=== PATIENT | female | born 1985 | race Caucasian/White ===

== ENCOUNTER → 2019-08-27 08:49 | Outpatient (CLI) | payer OTHER, SELFPAY ==
[2019-08-27 10:24] LABS: Prolactin 16.6 ng/mL; T4 Free Direct 0.96 ng/dL (0.76-1.46); Thyroid Stim Hormone (TSH) 1.91 uIU/mL (0.358-3.74)
[2019-08-27 10:30] LABS: Insulin 5.6 mU/L (2.6-37.6); Progesterone Level 0.16 ng/mL (See Comment)
[2019-08-29 23:22] LABS: 17-Hydroxyprogesterone 31 ng/dL (.)
[2019-08-30 17:41] LABS: Testosterone, % Free 2.25 % (0.50-2.80); Testosterone, Free 0.27 ng/dL (0.10-0.85); Testosterone, Total 12 ng/dL (8-48)
[2019-08-31 14:36] LABS: Anti-Mullerian Hormone,Serum 2.49 ng/mL (.); DHEA Sulfate 223.9 ug/dL (84.8-378.0)
== END ==
PROVIDERS: Referring Provider Advanced Practice Midwife; Visit Provider Advanced Practice Midwife
DX: Z01.411 Encounter for gynecological examination (general) (routine) with abnormal findings (principal); N97.9 Female infertility, unspecified
CPT/HCPCS: 36415; 82627; 83498; 83516; 83525; 84144; 84146; 84402; 84403; 84439; 84443; 82626

== ENCOUNTER → 2019-08-28 13:14 | Outpatient (CLI) | payer OTHER, SELFPAY ==
--- NOTE | 2019-08-28 13:45 | MRI_ITS ---
STUDY: MR PELVIS WITH T WITHOUT CONTRAST REASON FOR EXAM: Female, 33 years old. Pelvic swelling mass lump TECHNIQUE: Standardized fat and water weighted pulse sequences were obtained in all 3 orthogonal planes, pre-and post contrast administration. 15 CC DOTAREM IV was administered for the contrast portion of the examination. COMPARISON: None. FINDINGS: Multiple sequences are degraded by patient motion. Trace free fluid in the cul-de-sac. Normal ovaries. 2.2 cm dominant right ovarian follicle, within normal limits. Uterus is normal in size. 1.3 cm intramural fibroid in the uterine body posteriorly. The uterus is otherwise unremarkable. Urinary bladder is well-distended and is unremarkable. No pelvic mass or adenopathy. Marrow signal is normal. No soft tissue mass or cystic lesion. No enhancing lesion following the administration of contrast. MRI/Pelvis W/WO Contrast IMPRESSION: 1. Trace free fluid, likely physiologic. 2. Small uterine fibroid. Electronically Signed: Dona Payan MD at 23:36 EST Tel , Service support ,
== END ==
PROVIDERS: Referring Provider Advanced Practice Midwife; Visit Provider Advanced Practice Midwife
DX: D25.1 Intramural leiomyoma of uterus (principal); R19.09 Other intra-abdominal and pelvic swelling, mass and lump
CPT/HCPCS: 72197; A9575

== ENCOUNTER → 2023-04-12 | Outpatient (CLI) | payer OTHER, SELFPAY ==
--- NOTE | 2023-04-12 09:30 | RAD_ITS ---
INDICATION: BACK PAIN EXAMINATION/TECHNIQUE: X-RAY - XR Sacrum/Coccyx Min 2 Views COMPARISON: MRI pelvis August 28, 2019. FINDINGS: SACRUM/COCCYX: No fracture, destructive or sclerotic lesions. SACRO-ILIAC JOINTS: The articular structures are unremarkable. SOFT TISSUES: No soft tissue swelling or gas. There is asymmetric enlargement/widening of the left transverse process of L5 compared to the right; partial sacralization of L5. No articulation with the left sacral base. Moderate degenerative endplate changes at L4-5. RAD/Sacrum-Coccyx min 2 Views IMPRESSION: Intact sacrum and coccyx. Partial sacralization of L5 on the left. L4-5 degenerative endplate changes. Electronically Signed: Luis Carlos Kasper DO at 0:08 EDT ,
[2023-04-12 10:26] LABS: Absolute Lymphocyte Count 1.91 X10^3/uL (0.83-4.51); Basophil# 0.02 X10^3/uL; Basophil% 0.3 % (0-1); Eosinophil# 0.08 X10^3/uL; Eosinophils% 1.2 % (0-5); Hematocrit 39.5 % (37-47); Hemoglobin 12.9 g/dL (12.0-15.0); Lymphocyte # 1.91 X10^3/ul (0.83-4.51); Lymphocyte % 29.4 % (19-41); Mean Corp Hgb Conc 32.7 g/dL (32-36); Mean Corpuscular Hgb 29.7 pg (27.0-32.0); Mean Platelet Vol. 10.7 fl (6.2-12.0); Monocyte# 0.48 X10^3/uL; Monocyte% 7.4 % (0-10); NRBC Flagged by Analyzer 0 % (0-5); Neutrophil % 61.5 % (47-70); Platelet Count 280 K/mm3 (150-450); RBC Distribution Width CV 13.3 % (11.6-14.6); Red Blood Count 4.34 M/mm3 (4.2-5.4); White Blood Count 6.5 K/mm3 (4.4-11.0)
[2023-04-12 10:48] LABS: ALB/GLOB Ratio 1.1 RATIO (0.9-2.4); AST(SGOT) 14 U/L (15-37); Alanine Aminotransfer ALT/SGPT 25 U/L (13-56); Albumin, Serum 3.8 g/dL (3.2-5.0); Alkaline Phosphatase 52 U/L (45-117); Anion Gap 1 (5-15); BUN 10 mg/dL (7-18); BUN/Creat Ratio 16.3 RATIO (10-20); Calcium,Total 8.5 mg/dL (8.5-10.1); Chloride 111 mmol/L (98-107); Cholesterol 189 mg/dL (200); Creatinine, Serum 0.61 mg/dL (0.55-1.02); EST Glomerular Filtration Rate 117 mL/min (>60); Est Glom Filt Rate - Afr Amer 141 mL/min (>60); Ferritin 16 ng/mL (8-252); Globulin 3.4 g/dL (2.2-4.2); Glucose 107 mg/dL (74-106); High Density Lipoprotein 63 mg/dL; Iron 117 ug/dL (50-170); Iron Binding Capacity,Total 313 ug/dL (250-450); Potassium 3.9 mmol/L (3.5-5.1); Protein, Total 7.2 g/dL (6.4-8.2); Sodium Level 138 mmol/L (136-145); Thyroid Stim Hormone (TSH) 1.31 uIU/mL (0.358-3.74); Triglycerides 61 mg/dL; Very Low Density Lipoprotein 12 mg/dL (5-40)
== END | disposition home or self-care (01) ==
LOC: MTLAB 09:12
PROVIDERS: PCP Family Medicine; Referring Provider Family Medicine; Visit Provider Family Medicine
DX: Z00.00 Encounter for general adult medical examination without abnormal findings (principal); Z13.1 Encounter for screening for diabetes mellitus; K92.1 Melena; M54.50 Low back pain, unspecified; G89.29 Other chronic pain
CPT/HCPCS: 36415; 72220; 80053; 80061; 82728; 83540; 83550; 84443; 85025

== ENCOUNTER 2023-06-12 11:30 | Outpatient (RCR) | payer OTHER, SELFPAY ==
--- NOTE | 2023-05-14 10:59 | HP.PTEVAL ---
Patient's Visit Information Visit Information Visit Information: NENO QUINTERO is a 37 year old F referred to Physical Therapy by JOSE MIGUEL Ny with a diagnosis of Lumbar Spondylolysis. Date of Evaluation: 05/14/23 Physical Therapist: ALFREDITO Cervantes Visit Plan Frequency: 2x /Week Duration: 2 Months Plan: 2X/ week for 8 weeks starting with neutral spine core stability on the mat (add knee fall out and try and progress hip march etc), and then progress to sitting and standing neutral spine core stability using PT. Give HEP. WILL NEED A GYM ROUTINE AT IN BUT NOT [facility] [place]. HEP: PT, BRIDGEING WITH BLUE ISO ABD, SUPINE CLAMS WITH PT, PT WITH HIP MARCH Subjective Subjective: Pt has had back issues her whole life but the last year she has had pain everyday. She does not do pain pills. She had an x-ray that showed spondylolysis and he wants to do an MRI and has to do PT prior to MRI. She will get some pain in the front part of her legs but not in the back of the legs. No N&T. She is sleeping ok and does better with a sleep Number bed and sleeps good. No weakness in the legs. She walks 3 miles everyday. She has not worked out lately. She reports that sitting for a long time hurts or if she is up and moving a lot she has increased pain. Slow walk is ok. Not sure about a power walk. Stair: no pain Pain Back pain: Pain Intensity (Out of 10): 1 Objective Objective: Gait: Normal gait pattern Increase lordosis of L spine... hard for pt to hold a PPT on the mat table Pt has increase pain rolling from side to side but has less pain if she does an ab brace. Trunk AROM: flex 100%, Ext 50%, SB B 75%, Rot B 75% LE MMT: R hip flex 14.1 and L 14.3 R knee ext 21.8 and L 23.2 R knee flex 14.7 and L 16.6 R hip abd 13.9 and L 14.8 R hip ext 10.8 and l 9.1 some pain bridge: full ROM Patella DTR's 0/3 SLUMP test + B for back pain SLR test: + for back pain at end range Nerve root stretch--- negative B Standing heel and toe raises X 10 B (likes to stick butt out with toe raises) Balance/Special Test Scores Oswestry Low Back Score: 7 Goals Goal 1:: I HEP and gym routine with using a PT with all exercises for core stability Goal Time Frame: 6-8 Weeks Goal 2:: Decrease back pain by 50% with ADL's Goal Time Frame: 6-8 Weeks Goal 3:: Be able to hold a PT in supine and standing to help increase core stability while doing exercises Goal Time Frame: 6-8 Weeks Rehabilitation Potential Rehabilitation Potential: Excellent Anticipated Interventions Patient/Client Instruction: Educate patient on: Condition and Plan of Care For the Purpose of:: To decrease pain, To decrease swelling/inflammation, To increase ROM, To improve nutrient delivery to tissue, To improve muscle performance and motor function, To improve ability to perform ADL's, To increase tolerance to activity/condition/position, To improve performance and independence with ADL's, To decrease level of supervision to perform tasks, To improve ability of physical actions for home/community/work/leisure, To improve health of tissue, To decrease soft tissue restriction and To increase flexibility/ROM Therapeutic Exercise to Include: Strength training, Body mechanics, Postural training, Neuromotor development, Active ROM and Dynamic Lumbar Stabilization For the Purpose of:: To decrease pain, To increase ROM, To improve nutrient delivery to tissue, To improve muscle performance and motor function, To improve ability to perform ADL's, To increase tolerance to activity/condition/position, To improve health of tissue, To decrease soft tissue restriction and To increase flexibility/ROM Text: Thank you for the opportunity to evaluate your patient. For Medicare and Medicare HMO plans, please review the plan of care and approve it. It will need to be FAXED BACK to us at [phone] for Medicare purposes. For Medicare only, by signing this I certify the plan of care. Please let me know if there are questions or concerns regarding this plan of care. Physician Signature: Date:
--- NOTE | 2023-06-12 11:46 | HP.PTDCSUM ---
Discharge Summary D/C summary: It has been my pleasure to treat NENO QUINTERO referred by Fariba Ocampo NP-C, with the diagnosis of Lumbar Spondylolysis for a total of 6 visit(s). Discharge Date: 06/12/23 Please see the following information for a summary of their discharge status. Subjective Subjective: Pt feels that there definitly seen an improvement in the 4 weeks. Pt was sick last week. Pt wants to start to do a gym routine on her own. She has a membership here and a membership at [employer] and they can work with her with her back issues. 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 She is working on keeping her core tight overall and her knees a little bit. Pain Back pain: Pain Intensity (Out of 10): 1 Overall Improvement % Improvement: 50 Objective Objective/Function: Pt knows how to do a PT in standing Goals Goal 1:: I HEP and gym routine with using a PT with all exercises for core stability Goal Progress: Goal Met Goal 2:: Decrease back pain by 50% with ADL's Goal Progress: Goal Met Goal 3:: Be able to hold a PT in supine and standing to help increase core stability while doing exercises Goal Progress: Goal Met Plan Plan: DC PT to HEP and will incorporate PT/ab bracing into gym routines D/C Information Discharge Comments: DC PT to HEP d/c sentence: If there are questions or concerns regarding this patient's physical therapy, please feel free to call me at [phone]. Thank you for the referral of this patient. Sincerely, Jeannette Amado, MPT Balance/Gait/Functional tests Balance/Special Test Scores Oswestry Low Back Score: 5 Improvement % Improvement: 50
== END 2023-06-12 12:22 | disposition home or self-care (01) ==
LOC: PT 11:30
PROVIDERS: PCP Family Medicine; Referring Provider Nurse Practitioner; Visit Provider Nurse Practitioner
DX: M43.06 Spondylolysis, lumbar region (principal)
CPT/HCPCS: 97110; 97161; 97530

== ENCOUNTER → 2023-06-12 | Outpatient (CLI) | payer OTHER, SELFPAY ==
[2023-06-17 20:07] LABS: HPV APTIMA, High Risk Negative (Negative)
== END | disposition home or self-care (01) ==
PROVIDERS: PCP Family Medicine; Visit Provider Nurse Practitioner Women's Health
DX: Z12.4 Encounter for screening for malignant neoplasm of cervix (principal)
CPT/HCPCS: 87624; 88175; G0145

== ENCOUNTER → 2023-06-21 | Outpatient (CLI) | payer OTHER, SELFPAY ==
--- NOTE | 2023-06-21 08:14 | BI_ITS ---
MAMMOGRAPHY - BILATERAL SCREENING REASON FOR EXAM: Female, 37 years old. Routine annual screening examination. PERTINENT HISTORY: Grandmother with breast cancer. TECHNIQUE: Digital bilateral breast tony (3D mammographic acquisition) in the CC and MLO projections. 2-D mediolateral oblique (MLO) and craniocaudad (CC) views of both breasts were obtained. CAD: Full Field Digital Mammography with Computer Added Detection was performed. COMPARISON: None. Baseline examination. FINDINGS: Breast Composition: The breasts are extremely dense, which lowers the sensitivity of mammography. There are no dominant masses or suspicious calcifications. No other significant abnormalities are identified. BI/SCRN MAMM (CAD)W/TONY BILAT IMPRESSION: Negative screening mammogram. Yearly followup mammogram recommended. (A) ASSESSMENT CATEGORY: Approximately 10% of breast cancers are not detected by mammography. A normal mammogram should not delay biopsy of a clinically suspicious abnormality. [id number] Electronically Signed: Stephen Orellana MD at 9:02 EDT ,
== END | disposition home or self-care (01) ==
LOC: OPBI 08:13
PROVIDERS: PCP Family Medicine; Referring Provider Nurse Practitioner Women's Health; Visit Provider Nurse Practitioner Women's Health
DX: Z12.31 Encounter for screening mammogram for malignant neoplasm of breast (principal)
CPT/HCPCS: 77063; 77067

== ENCOUNTER → 2023-07-01 | Outpatient (CLI) | payer OTHER, SELFPAY ==
[2023-07-01 11:21] LABS: Prolactin 9.6 ng/mL
== END | disposition home or self-care (01) ==
LOC: PAVLAB 10:01
PROVIDERS: PCP Family Medicine; Referring Provider Nurse Practitioner Women's Health; Visit Provider Nurse Practitioner Women's Health
DX: N97.9 Female infertility, unspecified (principal)
CPT/HCPCS: 36415; 84146

== ENCOUNTER 2023-07-17 09:49 | Emergency (ER) | payer OTHER, SELFPAY ==
[2023-07-17 09:50] VITALS: BP 124/86; PULSE 97; RESP 14; TEMP 36.2; O2SAT 99; BMI 28.7
--- NOTE | 2023-07-17 10:05 | CT_ITS ---
EXAM: CT ABDOMEN AND PELVIS WITH INTRAVENOUS CONTRAST CLINICAL INDICATION: rectal bleeding TECHNIQUE: Helically acquired images were obtained of the abdomen and pelvis with intravenous contrast. This CT exam was performed using one or more of the following dose reduction techniques: automated exposure control, adjustment of the mA and/or kV according to patient size, and/or use of iterative reconstruction technique. CONTRAST: IV 100mL Isovue-370 RADIATION DOSE: CTDIvol = 12.56 mGy, DLP = 730.04 mGy-cm COMPARISON: No relevant prior studies available. FINDINGS: LOWER THORAX: Unremarkable. Lung bases are clear. No cardiomegaly. No significant pericardial effusion. ABDOMEN: LIVER: Unremarkable. Homogeneous. No focal mass. GALLBLADDER AND BILE DUCTS: Unremarkable. No calcified gallstones. No gallbladder distention or wall edema. No intra- or extrahepatic biliary ductal dilation. PANCREAS: Unremarkable. No focal cystic or solid mass. SPLEEN: Unremarkable. Normal size without focal cystic or solid mass. ADRENALS: Unremarkable. No nodules. KIDNEYS AND URETERS: Unremarkable. Normal renal size and position. No hydronephrosis. STOMACH AND BOWEL: Unremarkable. No stomach or bowel distention. No focal inflammatory change. PELVIS: APPENDIX: Normal. BLADDER: Unremarkable. REPRODUCTIVE: Unremarkable as visualized. No mass. ABDOMEN and PELVIS: INTRAPERITONEAL SPACE: Unremarkable. No ascites or other fluid collection. No free air. BONES/JOINTS: Bilateral L4 pars defects with mild anterolisthesis of L4 on L5. No suspicious lytic or blastic abnormality. SOFT TISSUES: Unremarkable. No discrete abdominal or pelvic wall hernia. VASCULATURE: Unremarkable. Abdominal aorta is non-dilated. LYMPH NODES: Unremarkable. No enlarged lymph nodes. CT/Abdomen/Pelvis W IV Cont ONLY IMPRESSION: 1. Negative CT of the abdomen and pelvis with contrast. Etiology of rectal bleeding is not visible on CT. 2. Bilateral L4 pars defects accounting for mild anterolisthesis of L4 on L5. Electronically Signed: Rickie Medrano MD at 11:45 EST ,
--- NOTE | 2023-07-17 10:06 | EDS_ITS ---
HPI HPI - GI History of Present Illness Chief Complaint: GI Bleed Informant: patient Narrative Narrative: Presents to the ED with increasing bright red blood per rectum over the last week. States small clots today. A week ago had some lower abdominal pain. No fevers. No urinary symptoms. Last menstrual period 19 days ago. Reports on and off blood in the stools for last few months she was referred to surgery Dr. Jimenez seen back on June 19. She has a pending EGD colonoscopy planned on August 06. There is family history of colon cancer. Patient reports family history of diverticulitis. She had rectal fissures as a child. Unclear of any known hemorrhoids. States feels discomfort with bowel movements in her lower abdomen. No urinary symptoms. States had lightheaded symptoms a week ago none since. No anticoagulation medicines. Reports history of spondylolisthesis lower back, pending MRI in the upcoming week. Prior similar symptoms: Yes PFSH PFSH Medical History Anxiety Hemorrhoids Home Medications NK 05/01/23 [History Last Taken Unknown] Allergy/AdvReac Type Severity Reaction Status Date / Time No Known Allergies Allergy Verified 07/17/23 09:52 Family History Grandmother Breast cancer Great grandmother Grandmother Breast cancer Grandfather Colon cancer Mother Hypertension Father CVA (cerebral vascular accident) Surgical History Hx of LASIK Social History household members: spouse number of children: 0 current occupational status: unemployed Smoking Status: Never smoker alcohol intake: current alcohol intake frequency: holidays/special occasions only substance use type: does not use what type of physical activity do you participate in: walking and other details: pilates and crossfit seatbelt use: always do you feel safe at home: Yes additional social history: - [employer]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 ROS ROS ED Constitutional Constitutional ED: Denies chills, fever(s) or sweats Eyes Eyes: Denies change in vision ENT ENT ED: Denies dysphagia or sore throat Cardiovascular Cardiovascular: Denies chest pain, leg edema, palpitations or racing heartbeat Respiratory/Chest Respiratory/Chest: Denies cough, dyspnea or dyspnea on exertion Gastrointestinal Gastrointestinal: Reports other Details: Rectal bleeding ; Denies abdominal pain, diarrhea, nausea or vomiting Genitourinary Genitourinary ED: Denies dysuria, hematuria or urinary frequency Musculoskeletal Musculoskeletal: Denies back pain, extremity pain or neck pain Integumentary Denies rash or wounds Neurologic Neurologic: Denies headache(s), paresthesias or weakness EXAM Physical Exam Const Vital Signs: 07/17/23 09:50 07/17/23 12:10 07/17/23 12:10 Temperature 97.2 F L Temperature Source Temporal Pulse Rate 97 89 87 Respiratory Rate 14 16 16 Blood Pressure 124/86 H 125/64 H 125/64 H Blood Pressure Mean 98 84 84 Pulse Ox 99 99 98 Oxygen Delivery Method Room Air Room Air Positive well nourished and well developed General Appearance ED: well developed and NAD HEENT Reports moist mucous membranes normocephalic and atraumatic Eyes PERRL, EOMs intact bilaterally and conjunctivae normal General Eye ED: Yes normal appearance of both eyes Neck no lymphadenopathy and supple General: Negative for tenderness Chest Wall Chest: Negative for tenderness Resp normal respiratory effort and normal air movement Effort and Inspection: symmetric chest movement; Negative for respiratory distress Cardio regular rate, regular rhythm and no murmurs Peripheral Pulses: pulses 2+ throughout GI normal to inspection, nondistended, normoactive bowel sounds and non-tender GI Narrative: 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 Negative Magallon's or McBurney's tenderness. No pain left lower quadrant. No guarding or rebound. Palpation: Negative for guarding or rebound tenderness present Back/Spine no CVA tenderness and no thoracic nor lumbar tenderness Extremity normal to inspection General Extremety ED: Negative for edema or tenderness General Extremity: Negative for edema Neuro oriented x3 and no sensory deficits noted Sensorium / Orientation: awake and alert Skin no rashes or lesions noted and no wounds MDM MDM MDM Narrative Medical decision making narrative: Interventions / MDM: Differential diagnosis: Rectal bleeding, hemorrhoids, Diagnosis considered but do not suspect: No colonic masses seen on CT. My EKG interpretation: N/A Imaging independently reviewed and interpreted by myself: CT scan abdomen pelvis IV contrast: No intra-abdominal process. Lumbar spondylolisthesis is noted. also read by radiology. External documents reviewed: N/A Test considered but not ordered:N/A ED course: Patient with nonsurgical abdomen. No active bleeding on exam. Vital stable. Reporting increasing rectal bleeding for the past week. Labs were drawn. With family history of colon cancer no recent imaging with pending colonoscopy, discussed obtaining CT scan for evaluation rule any masses. She understands and agrees. 0050: Labs are stable hemoglobin 12.8. Vitals remained stable. Pending CT scan. CT scan negative. Vital stable. Discussed results with the patient. She has a pending upper endoscopy and lower endoscopy on 06 August. She will plan on keeping this appointment for outpatient evaluation. Return precaution discussed discussed. All questions were answered. Re-evaluation: stable Disposition discussed with patient/family/significant other: patient Case discussed with consulting clinician: N/A This note was generated with Sontra dictation software. It may contain incorrect words, spelling, and punctuation that were not noted in checking the note before signing. Lab Data Attestation: I reviewed the patient's lab results. Labs: Laboratory Results - last 24 hr 07/17/23 10:00 WBC 8.3 RBC 4.32 Hgb 12.8 Hct 39.3 MCV 91.0 MCH 29.6 MCHC 32.6 RDW Std Deviation 45.3 H RDW Coeff of Sunita 13.4 Plt Count 329 MPV 10.5 Immature Gran % (Auto) 0.400 Neut % (Auto) 67.3 Lymph % (Auto) 25.6 Pepin % (Auto) 5.6 Eos % (Auto) 0.7 Baso % (Auto) 0.4 Absolute Neuts (auto) 5.6 Absolute Lymphs (auto) 2.13 Nucleated RBC % 0 Sodium 138 Potassium 3.9 Chloride 109 H Carbon Dioxide 24.0 Anion Gap 5 BUN 12 Creatinine 0.73 Estim Creat Clear Calc 91.11 Est GFR (MDRD) Af Amer 116 Est GFR (MDRD) Non-Af 96 BUN/Creatinine Ratio 16.5 Glucose 117 H Calcium 8.9 Serum , Qual NEGATIVE Radiography Diagnostic Testing: Clinical Impression(s) from Imaging Studies Abdomen/Pelvis CT 07/17/23 10:05 IMPRESSION: 1. Negative CT of the abdomen and pelvis with contrast. Etiology of rectal bleeding is not visible on CT. 2. Bilateral L4 pars defects accounting for mild anterolisthesis of L4 on L5. Electronically Signed: Rickie Medrano MD at 11:45 EST , Discharge Plan Triage Chief Complaint: GI Bleed ED Provider: Aldair Maurice Dx/Rx/DC Orders Clinical Impression: Rectal bleeding, Hemorrhoids Instructions: GI Bleeding Causes and Tests Prescriptions: No Action NK Primary Care Provider: Kellee Kinney Referrals: Rios Jimenez MD [Med Staff - Active Staff] - Keep Vonnie appointment Kellee Kinney MD [Primary Care Provider] - Activity Restrictions/Additional Instructions: You have nonbleeding external hemorrhoids on exam. Hemoglobin 12.8 stable from previous. Your CT scan abdomen pelvis did not note any masses or causes of bleeding. Monitor bleeding issues keep follow-up with Dr. Jimenez for your planned upper and lower endoscopies. If any worsening symptoms that are concerning return to the ED for reevaluation. Disposition Disposition: Home, Self Care Discharge Date/Time: 07/17/23 12:15
[2023-07-17] MEDS: 0.9% Normal Saline (1000mL) 1,000 ML 500 ML IV (10:16)
[2023-07-17 10:22] LABS: Absolute Lymphocyte Count 2.13 X10^3/uL (0.83-4.51); Absolute Neutrophil Count 5.6 X10^3/uL (2.0-7.7); Basophil# 0.03 X10^3/uL; Basophil% 0.4 % (0-1); Eosinophil# 0.06 X10^3/uL; Eosinophils% 0.7 % (0-5); Hematocrit 39.3 % (37-47); Hemoglobin 12.8 g/dL (12.0-15.0); Lymphocyte # 2.13 X10^3/ul (0.83-4.51); Lymphocyte % 25.6 % (19-41); Mean Corp Hgb Conc 32.6 g/dL (32-36); Mean Corpuscular Hgb 29.6 pg (27.0-32.0); Mean Platelet Vol. 10.5 fl (6.2-12.0); Monocyte# 0.47 X10^3/uL; Monocyte% 5.6 % (0-10); NRBC Flagged by Analyzer 0 % (0-5); Neutrophil # 5.61 X10^3/uL (2.7-7.7); Neutrophil % 67.3 % (47-70); Platelet Count 329 K/mm3 (150-450); RBC Distribution Width CV 13.4 % (11.6-14.6); RBC Distribution Width SD 45.3 fl (35.1-43.9); Red Blood Count 4.32 M/mm3 (4.2-5.4); White Blood Count 8.3 K/mm3 (4.4-11.0)
[2023-07-17 10:29] LABS: Anion Gap 5 (5-15); BUN 12 mg/dL (7-18); BUN/Creat Ratio 16.5 RATIO (10-20); Calcium,Total 8.9 mg/dL (8.5-10.1); Chloride 109 mmol/L (98-107); Creatinine, Serum 0.73 mg/dL (0.55-1.02); EST Glomerular Filtration Rate 96 mL/min (>60); Est Glom Filt Rate - Afr Amer 116 mL/min (>60); Estimated Creatinine Clearance 91.11 ml/min; Glucose 117 mg/dL (74-106); Potassium 3.9 mmol/L (3.5-5.1); Sodium Level 138 mmol/L (136-145)
[2023-07-17 10:53] LABS: Internal QC Validated? YES +Cl - CLEAR BKGD; Pregnancy, Serum, hCG Quali. NEGATIVE Negative
[2023-07-17 12:10] VITALS: BP 125/64; PULSE 87; PULSE 89; RESP 16; O2SAT 98; O2SAT 99
== END 2023-07-17 12:15 | disposition home or self-care (01) ==
PROVIDERS: Emergency Provider Emergency Medicine; PCP Family Medicine; Visit Provider Emergency Medicine
DX: K62.5 Hemorrhage of anus and rectum (principal); K64.9 Unspecified hemorrhoids
CPT/HCPCS: 74177; 80048; 84703; 85025; 96360; 96361; 99283; J7030; Q9967; A4216

== ENCOUNTER → 2023-07-20 | Outpatient (CLI) | payer OTHER, SELFPAY ==
--- NOTE | 2023-07-20 08:58 | MRI_ITS ---
HISTORY: pain yrs worsening -- lytic spondylolisthesis l4-l5 TECHNIQUE: Multiplanar and multisequence MR images of the lumbar spine were obtained without intravenous contrast. 145 images. COMPARISON: CT 07/17/2023, complex R9 [id number]. FINDINGS: VERTEBRAE: Vertebral body heights maintained. Bilateral L4 spondylolysis. Mild degenerative endplate changes of L4-5 and L5-S1. No other significant bone marrow signal abnormality. ALIGNMENT: Chronic 2 to 3 mm anterolisthesis of L4-5. CONUS: Normal morphology and position of the conus medullaris at T12. INTERVERTEBRAL DISCS: T12-L1: No significant disc signal abnormality, posterior disc protrusion, central canal stenosis, or foraminal narrowing based on the sagittal images. L1-2: No significant disc signal abnormality, posterior disc protrusion, central canal stenosis, or foraminal narrowing. L2-3: No significant disc signal abnormality, posterior disc protrusion, central canal stenosis, or foraminal narrowing. Small right perineural cyst. L3-4: No significant disc signal abnormality, posterior disc protrusion, central canal stenosis, or foraminal narrowing. L4-5: Mild posterior disc bulge osteophyte complex with annular fissure and facet arthropathy. No significant central canal stenosis. Very mild bilateral foraminal narrowing. L5-S1: Mild degenerative loss of T2 signal in the disc. No significant posterior disc protrusion, central canal stenosis, or foraminal narrowing. Small right perineural cyst incidentally noted. SOFT TISSUES: No paraspinal fluid collection. MRI/Spine Lumbar (Routine) IMPRESSION: L4 spondylolysis with grade 1 spondylolisthesis and mild L4-5 spondylosis. No significant spinal canal stenosis. Electronically Signed: Luisa Hart MD at 13:09 EST ,
== END | disposition home or self-care (01) ==
PROVIDERS: PCP Family Medicine; Referring Provider Orthopaedic Surgery; Visit Provider Orthopaedic Surgery
DX: M43.16 Spondylolisthesis, lumbar region (principal)
CPT/HCPCS: 72148

== ENCOUNTER 2023-08-06 06:37 | Day surgery (SDC) | payer OTHER, SELFPAY ==
--- NOTE | 2023-08-06 | COLBX_PTH ---
PATIENT: NENO QUINTERO LOC: EN U#:[id number] AGE/SX: 37/F ROOM: RE08/06/[address]: Dr. Rios Jimenez MD : 1985 BED: DIS: 08/06/2023 SPEC #: [id number] RECD: 08/06/23 09:15 STATUS: JHONNY VIVI #: [id number] MARITZA: 08/06/23 00:[address]: Rios Jimenez DEPT: SURGICAL PATHOLOGY RECD BY: Neeraj English ENTERED: 08/06/23 09:15 SP TYPE: COLON BX OTHR DR: Kellee Kinney MD Tissues: Sigmoid colon biopsy Procedures: Surgery Specimen Level IV HEADER OPERATION: Colonoscopy with polypectomy, EGD PRE-OP DIAGNOSIS: Blood in stool TISSUE SUBMITTED: Sigmoid colon biopsy MICROSCOPIC DIAGNOSIS Sigmoid colon polyp, biopsy: Inflammatory polyp. Vascular ectasia. See comment. AM:nitza 08/07/2023 COMMENT A large vessel is present in the submucosa. Clinical correlation is suggested. MICROSCOPIC DESCRIPTION Slides are reviewed. GROSS DESCRIPTION Received in fixative is one container labeled with the patient's name and designated sigmoid colon biopsy. The specimen consists of a diaz-pink polyp measuring 1.2 x 0.5 x 0.4 cm. The specimen is totally submitted in one cassette. / SJ:nitza 08/06/2023 :5 [facility]: [id number]
[2023-08-06 06:52] VITALS: BP 112/67; PULSE 94; RESP 18; TEMP 36.5; O2SAT 98; BMI 28.1
[2023-08-06] MEDS: Lactated Ringers 1,000 ML 15 ML IV (06:56)
--- NOTE | 2023-08-06 06:57 | HP.PCM_ITS ---
History and Physical Date of Admission: 08/06/23 Intake Vital Signs 06/12/2310:20 06/19/2313:48 Height 5 ft 4 in 5 ft 4 in Weight: 164 lb BMI 28.1 BP 119/82 H Blood Pressure Location Rt brachial Position Sitting Respiration 17 Pulse 92 Pulse Source NIBP Temp 98.2 F Temp Source Temporal Pulse Oximetry (%) 96 Oxygen Delivery Method room air Intake Visit Reasons: BLOOD IN STOOL/FAMILY HX OF COLON CANCER Chief Complaint: blood in stool, abn GI testing Baked And Graphite Inspector Required: No Is patient in pain?: No Allergies No Known Allergies Allergy (Verified 06/19/23 13:48) Medications NK 05/01/23 [History Confirmed 06/19/23] Is last menstrual period known: No Post menopausal: No Patient : No PFSH Medical History (Updated 06/19/23 @ 13:48 by Anum Gaitan) Anxiety Hemorrhoids Surgical History (Updated 06/19/23 @ 13:48 by Anum Gaitan) Hx of LASIK Family History (Updated 06/19/23 @ 13:50 by Anum Gaitan) Grandmother Breast cancer Great grandmother Grandmother Breast cancerGrandfather Colon cancerMother HypertensionFather CVA (cerebral vascular accident) Social History (Updated 06/12/23 @ 10:19 by Yara Saravia) household members: spouse number of children: 0 current occupational status: unemployed Smoking Status: Never smoker alcohol intake: current alcohol intake frequency: holidays/special occasions only substance use type: does not use what type of physical activity do you participate in: walking and other det ails: pilates and crossfit seatbelt use: always do you feel safe at home: Yes additional social history: - 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 She reports that it is dark. She has been having this going on for few months. She also reports that the blood used to be bright but now it is dark. She has never had a scope in the past. She has no family history of colon cancer. ROS General General: Yes weight change and fatigue; No appetite, colon cancer, breast cancer or weakness HEENT HEENT: Yes eye surgery; No difficulty swallowing, eye injury, swollen glands or hoarseness Endo Endocrine: No thyroid disease, diabetes mellitus, thyroid cancer, Hair loss, heat intolerance or cold intolerance Breast Breast: No left breast lump, right breast lump, nipple discharge, breast pain, abnormal mammogram, abnormal US or breast enlargement Musc Musculoskeletal: Yes back problems; No arthritis, rheumatoid arthritis, gout or joint pain Cardio Cardiovascular: No murmur, pacemaker, heart disease, atrial fibrillation, high blood pressure, heart attack, heart stent, palpitations, shortness of breat with exertion or chest pain Psych Psychiatric: Yes anxiety; No depression or hearing voices Resp Respiratory: No shortness of breath, No sleep apnea, No cough, No COPD, No asthma, No emphysema and No wheezing Gastro Gastrointestinal: No abdominal pain, No nausea or vomiting, No diarrhea, No constipation, Yes blood in stool, No acid reflux, Yes hemorrhoids, No ulcers, No gallbladder problem and No black,tarry stools Antoni Hematologic: No blood thinners, No blood disorders, No bleeding, No anemia and No blood clots Neuro Neurologic: No weakness Exam Const General: cooperative Orientation: alert and oriented x3 [facility] Head: normal to inspection Neck Neck: normal visual inspection and full ROM Chest Chest palpation & inspection: normal inspection of the chest Resp Effort & Inspection: normal respiratory effort Auscultation: clear to auscultation bilaterally Cardio Rate: regular rate Rhythm: regular rhythm GI Inspection: non-distended Palpation: soft and nontender Skin General: no rashes or lesions noted Neuro General: patient alert and patient oriented x3 Extrem General: full ROM Psych Appearance: grossly normal Mental Status: mental status grossly normal Assessment and Plan Assessment and Plan (1) Blood in stool: Status: Acute Plan: Patient has been seeing blood in her stool. She reports that it is when she wipes and is in the bowl. She is concerned because it is becoming darker. I would like to perform an EGD and colonoscopy to evaluate her bleeding. I explained endoscopy in detail to the patient. I explained the risks including but not limited to stroke or heart attack with anesthesia, perforation of the GI tract, bleeding, infection. I explained that any of these could necessitate further emergency surgery. The patient understands and all questions were answered sufficiently. The patient wishes to proceed with procedure. Rios Jimenez MD Pager: [facility] [address] [place] [address], [address] [place] [address] Office: I have examined the patient and the H&P has been reviewed. There are no clinical changes since date of exam.
[2023-08-06 07:01] LABS: Internal QC Validated? YES +Cl - CLEAR BKGD; Pregnancy, Urine Negative Negative
[2023-08-06 07:52] VITALS: BP 112/67; BP 97/67; PULSE 74; RESP 16; TEMP 36.4; O2SAT 98
--- NOTE | 2023-08-06 07:53 | OP.EGD_ITS ---
Patient Name: Coni Saravia Procedure Date: 08/06/2023 7:24 AM Date of : 1985 Age: 37 Procedure: Upper GI endoscopy Indications: Melena Providers: Rios Jimenez MD Medicines: Monitored Anesthesia Care Patient Profile: This is a 37 year old female. Refer to note in patient chart for documentation of history and physical. Complications: No immediate complications. Procedure: Pre-Anesthesia Assessment: - Prior to the procedure, a History and Physical was performed, and patient medications and allergies were reviewed. The patient's tolerance of previous anesthesia was also reviewed. The risks and benefits of the procedure and the sedation options and risks were discussed with the patient. All questions were answered, and informed consent was obtained. Prior Anticoagulants: The patient has taken no anticoagulant or antiplatelet agents. After reviewing the risks and benefits, the patient was deemed in satisfactory condition to undergo the procedure. After obtaining informed consent, the endoscope was passed under direct vision. Throughout the procedure, the patient's blood pressure, pulse, and oxygen saturations were monitored continuously. The Endoscope was introduced through the mouth, and advanced to the fourth part of duodenum. The upper GI endoscopy was accomplished without difficulty. The patient tolerated the procedure well. Scope In: 7:31:52 AM Scope Out: 7:34:16 AM Total Procedure Duration Time 0 hours 2 minutes 24 seconds Findings: The esophagus was normal. The stomach was normal. The examined duodenum was normal. Impression: - Normal esophagus. - Normal stomach. - Normal examined duodenum. - No specimens collected. Recommendation: - Discharge patient to home. - Resume previous diet. - Continue present medications. Procedure Code(s): --- Professional --- 67603, Esophagogastroduodenoscopy, flexible, transoral; diagnostic, including collection of specimen(s) by brushing or washing, when performed (separate procedure) Diagnosis Code(s): --- Professional --- K92.1, Melena (includes Hematochezia) CPT copyright 2021 [employer]. All rights reserved. The codes documented in this report are preliminary and upon barn worker review may be revised to meet current compliance requirements. Rios Jimenez MD 08/06/2023 7:52:56 AM This report has been signed electronically. Number of Addenda: 0 Note Initiated On: 08/06/2023 7:24 AM
--- NOTE | 2023-08-06 07:53 | OP.CCLET_ITS ---
08/06/2023 Kellee Kinney Md Re : Upper GI endoscopy procedure for Coni Saravia Dear Gregoria This procedure was performed on Sunday, August 06, 2023. My impressions and recommendations are as follows: Impressions : - Normal esophagus. - Normal stomach. - Normal examined duodenum. - No specimens collected. Recommendations : - Discharge patient to home. - Resume previous diet. - Continue present medications. My findings are described in the full procedure note, which is enclosed. If I can be of further assistance, please feel free to contact me at Doctor phone number(s): , Work: . Sincerely, Rios Jimenez MD 08/06/2023 7:52:56 AM This report has been signed electronically.
[2023-08-06 07:55] VITALS: BP 112/67; BP 91/64; PULSE 65; RESP 16; O2SAT 97
--- NOTE | 2023-08-06 07:57 | OP.COLON_ITS ---
Patient Name: Coni Saravia Procedure Date: 08/06/2023 7:37 AM Date of : 1985 Age: 37 Procedure: Colonoscopy Indications: Rectal bleeding Providers: Rios Jimenez MD Medicines: Monitored Anesthesia Care Patient Profile: This is a 37 year old female. Refer to note in patient chart for documentation of history and physical. Last Colonoscopy: none. The patient's first colonoscopy is today. Complications: No immediate complications. Procedure: Pre-Anesthesia Assessment: - Prior to the procedure, a History and Physical was performed, and patient medications and allergies were reviewed. The patient's tolerance of previous anesthesia was also reviewed. The risks and benefits of the procedure and the sedation options and risks were discussed with the patient. All questions were answered, and informed consent was obtained. Prior Anticoagulants: The patient has taken no anticoagulant or antiplatelet agents. After reviewing the risks and benefits, the patient was deemed in satisfactory condition to undergo the procedure. After I obtained informed consent, the scope was passed under direct vision. Throughout the procedure, the patient's blood pressure, pulse, and oxygen saturations were monitored continuously. The Colonoscope was introduced through the anus and advanced to the cecum, identified by appendiceal orifice and ileocecal valve. The colonoscopy was performed without difficulty. The patient tolerated the procedure well. The quality of the bowel preparation was good. The ileocecal valve, appendiceal orifice, and rectum were photographed. Scope In: 7:38:02 AM Scope Withdrawal Time 0 hours 6 minutes 28 seconds Scope Out: 7:47:26 AM Total Procedure Duration Time 0 hours 9 minutes 24 seconds Findings: The entire examined colon appeared normal on direct and retroflexion views. External and internal hemorrhoids were found during retroflexion. The hemorrhoids were moderate. A medium polyp was found in the sigmoid colon. The polyp was pedunculated. The polyp was removed with a hot snare. Resection and retrieval were complete. Impression: - The entire examined colon is normal on direct and retroflexion views. - External and internal hemorrhoids. - No specimens collected. Recommendation: - Discharge patient to home. - Resume previous diet. - Continue present medications. - Repeat colonoscopy in 5 years for surveillance based on pathology results. - Return to my office at appointment to be scheduled. - Await pathology results. Procedure Code(s): --- Professional --- 29424, Colonoscopy, flexible; with removal of tumor(s), polyp(s), or other lesion(s) by snare technique Diagnosis Code(s): --- Professional --- K64.8, Other hemorrhoids K62.5, Hemorrhage of anus and rectum CPT copyright 2021 [employer]. All rights reserved. The codes documented in this report are preliminary and upon international affairs vice president review may be revised to meet current compliance requirements. Rios Jimenez MD 08/06/2023 7:57:34 AM This report has been signed electronically. Number of Addenda: 0 Note Initiated On: 08/06/2023 7:37 AM
--- NOTE | 2023-08-06 07:58 | OP.CCLET_ITS ---
08/06/2023 Kellee Kinney Md Re : Colonoscopy procedure for Coni Saravia Dear Gregoria This procedure was performed on Sunday, August 06, 2023. My impressions and recommendations are as follows: Impressions : - The entire examined colon is normal on direct and retroflexion views. - External and internal hemorrhoids. - No specimens collected. Recommendations : - Discharge patient to home. - Resume previous diet. - Continue present medications. - Repeat colonoscopy in 5 years for surveillance based on pathology results. - Return to my office at appointment to be scheduled. - Await pathology results. My findings are described in the full procedure note, which is enclosed. If I can be of further assistance, please feel free to contact me at Doctor phone number(s): , Work: . Sincerely, Rios Jimenez MD 08/06/2023 7:57:34 AM This report has been signed electronically.
[2023-08-06 08:00] VITALS: BP 112/67; BP 97/65; PULSE 64; RESP 16; O2SAT 98
[2023-08-06 08:05] VITALS: BP 100/66; BP 112/67; PULSE 72; RESP 16; TEMP 36.6; O2SAT 98
[2023-08-06 08:25] VITALS: BP 112/67
== END 2023-08-06 08:30 | disposition home or self-care (01) ==
LOC: EN 06:40 → AC 06:40
PROVIDERS: Anesthesiology; PCP Family Medicine; Referring Provider Family Medicine; Visit Provider Surgery
PROC: 0DJD8ZZ Inspection of Lower Intestinal Tract, Via Natural or Artificial Opening Endoscopic (ICD-10-PCS; CPT 45378; principal; 2023-08-06 07:25)
DX: K55.21 Angiodysplasia of colon with hemorrhage (principal); K51.40 Inflammatory polyps of colon without complications; K64.4 Residual hemorrhoidal skin tags; K64.8 Other hemorrhoids; Z80.0 Family history of malignant neoplasm of digestive organs
CPT/HCPCS: 43235; 45385; 81025; 88305; J7120; J2405

== ENCOUNTER → 2024-06-27 | Outpatient (CLI) | payer OTHER, SELFPAY | END | disposition home or self-care (01) | LOC: US 10:56 | PROVIDERS: PCP Family Medicine; Referring Provider Nurse Practitioner Women's Health; Visit Provider Nurse Practitioner Women's Health | DX: N92.0 Excessive and frequent menstruation with regular cycle (principal); N94.10 Unspecified dyspareunia; Z86.018 Personal history of other benign neoplasm | CPT/HCPCS: 76830; 76856 ==

== ENCOUNTER → 2024-08-21 | Outpatient (CLI) | payer OTHER, SELFPAY ==
--- NOTE | 2024-08-21 13:14 | BI_ITS ---
MAMMOGRAPHY - BILATERAL SCREENING 3-D TOMOSYNTHESIS REASON FOR EXAM: Female, 38 years old. screen PERTINENT HISTORY: No significant family history. TECHNIQUE: 2-D mammograms and 3-D Tomosynthesis of the breast (s) were performed. CAD was performed. COMPARISON: 06/21/2023 FINDINGS: The breast composition is heterogeneously dense that can obscure small breast masses. Scattered benign calcifications are seen. No dense spiculated masses or suspicious microcalcifications are identified. No architectural distortion is identified. There is no skin thickening or retraction. There has been no significant change since the prior study. BI/SCRN MAMM (CAD)W/TONY BILAT IMPRESSION: No mammographic signs of malignancy. Routine yearly mammograms recommended. ASSESSMENT CATEGORY: BIRADS Category 1: Negative. A letter regarding these results will be sent to the patient by the facility within 30 days. FOLLOW UP RECOMMENDATION: Yearly follow up mammogram recommended. (A) Approximately 10% of breast cancers are not detected by mammography. A normal mammogram should not delay biopsy of a clinically suspicious abnormality. Electronically Signed: Jeremi Ibarra MD at 20:01 EST ,
== END | disposition home or self-care (01) ==
LOC: OPBI 13:13
PROVIDERS: PCP Family Medicine; Referring Provider Nurse Practitioner Women's Health; Visit Provider Nurse Practitioner Women's Health
DX: Z12.31 Encounter for screening mammogram for malignant neoplasm of breast (principal)
CPT/HCPCS: 77063; 77067

== ENCOUNTER 2025-07-23 19:37 | Emergency (ER) | payer OTHER, SELFPAY ==
[2025-07-23 19:37] VITALS: BP 126/88; PULSE 80; RESP 16; TEMP 36.6; O2SAT 99; BMI 28.1
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
--- OUTSIDE RECORDS SUMMARY | 2025-07-23 20:13 | XMS RPT_ITS | CCD ---
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 Automatic Name Role Phone STILSON, ELINOR Unavailable Unavailable STILSON, ELINOR Unavailable Unavailable STILSON, ELINOR Unavailable Unavailable NONE, NONE Unavailable Unavailable STILSON, ELINOR Unavailable Unavailable STILSON, ELINOR Unavailable Unavailable STILSON, ELINOR Unavailable Unavailable NONE, NONE Unavailable Unavailable NONE, NONE Unavailable Unavailable STILSON, ELINOR Unavailable Unavailable STILSON, ELINOR Unavailable Unavailable STILSON, ELINOR Unavailable Unavailable NONE, NONE Unavailable Unavailable Leti Zaid [phone] Unavailable U navailable NONE, NONE Unavailable Unavailable STILSON, ELINOR Unavailable Unavailable STILSON, ELINOR Unavailable Unavailable STILSON, ELINOR Unavailable Unavailable NONE, NONE Unavailable Unavailable NONE, NONE Unavailable Unavailable STILSON, ELINOR Unavailable Unavailable NONE, NONE Unavailable Unavailable STILSON, ELINOR Unavailable Unavailable Bruna Medrano [phone] Unavailable Unavai lable STILSON, ELINOR Unavailable Unavailable NONE, NONE Unavailable Unavailable PHYSICIAN, NONE Primary Care Physician Unavailab MD Kellee Hayward Primary Care Provider Dr. Silvestre Farfan Attending Provider 1([facility])-[phone] MD Kellee Kinney Referring Provider 1([facility])[phone] Jarod Milan Attending Provider 1([facility])[phone] Care Physician, No Primary Referring Provider Un available Martin BAIL AGENT, BAIL AGENT-C Veronica Attending Provider Dr. Rios Jimenez Attending Provider MD Kellee Kinney Primary Care Provider Dr. Silvestre Farfan Attending Provider [phone] MD Kellee Kinney Referring Provider 1([facility])[phone] Jarod Milan Attending Provider 1([facility])[phone] Care Physician, No Primary Referring Provider Un available Martin BAIL AGENT, BAIL AGENT-C Veronica Attending Provider Dr. Rios Jimenez Attending Provider Dr. Rios Jimenez Other Provider Unavailable Primary Care Provider UnavailKellee Wolfe MD Primary Care Provider [phone] CESTA, SANIA Attending Unavailable ZOLKRISTINA MOFFETTSSICA Referring Unavailable REE VÁSQUEZ Attending Unavailable TOAN, CHALON Primary Care Unavailable CESTA, SANIA Attending Unavailable TOAN, CHALON Primary Care Unavailable CESTA, SANIA Attending Unavailable CESTA, SANIA Admitting Unavailable TOAN, CHALON Primary Care Unavailable DOWNS BENJY, MATT Attending Unavailable PHYSICIAN, NONE Primary Care Unavailable Toan, Chalon Primary Care Unavailable Martin BAIL AGENT, Veronica Referring Unavailable Bee BAIL AGENT, Veronica Attending Unavailable Martin BAIL AGENT, Veronica Referring Unavailable Martin BAIL AGENT, Veronica Attending Unavailable Toan, Chalon Primary Care Unavailable PHYSICIAN, NONE Primary Care Unavailable DOWNS BENJY, MATT Attending Unavailable Allergies Allergy Classification Reported Allergen(s) Allergy Type Date of Onset Reaction(s) Facility (1 source) ALLERGIES NOT ON FILE; Translations: [ALLERGIES NOT ON FILE] Propensity to adverse reactions (disorder) [facility] Repository Medications Current Medications Medication Drug Class(es) Dates Sig (Normalized) Sig (Original) acetaminophen 500 mg oral tablet (4 sources) Start: 10-23-2023 End: 11-02-2023 take 2 tablets by mouth every six hours as needed for pain acetaminophen (Tylenol Extra Strength) 500 MG tablet Take 2 tablets (1,000 mg) by mouth every 6 hours as needed for mild pain (1-3) for up to 10 days. 60 tablet 0 10/23/2023 11/02/2023 Active Start: 10-23-2023 End: 10-23-2023 acetaminophen (Tylenol) tabl et 1,000 mg Start: 10-23-2023 End: 10-23-2023 acetaminophen (Tylenol) tabl et 1,000 mg b complex vitamins capsule (7 sources) take 1 capsule by mouth once daily b complex vitamins capsule Take 1 capsule by mouth daily. 0 Active docusate sodium 50 mg / sennosides, residential 8.6 mg oral tablet (6 sources) Start: 10-23-2023 End: 10-22-2024 take 1 tablet by mouth once daily senna-docusate sodium (Senokot-S) 8.6-50 MG tablet Take 1 tablet by mouth daily. 30 tablet 11 10/23/2023 10/22/2024 Active Ujwpkb-O02-Bbllhkug c Factor (INTRINSI W26-LEFARB PO) (7 sources) Aewuuf-L90-Hcfeu ns ic Factor (INTRINSI C04-SYSUBM PO) Take by mouth daily. 0 Active glutamine 500 mg oral capsule (7 sources) Amino Acid take 1 capsule by mouth once daily Glutamine 500 MG capsule Take by mouth daily. 0 Active ibuprofen 600 mg oral tablet (6 sources) Nonsteroidal Anti-inflammatory Drug Start: 10-23-2023 take 1 tablet by mouth every six hours ibuprofen 600 MG tablet Take 1 tablet (600 mg) by mouth in the morning and 1 tablet (600 mg) at noon and 1 tablet (600 mg) in the evening and 1 tablet (600 mg) before bedtime. 60 tablet 0 10/23/2023 Active Magnesium glycinate (7 sources) take 120 mg by mouth in the morning MAGNESIUM GLYCINATE PO Take 120 mg by mouth in the morning and 120 mg in the evening. 0 Active NON FORMULARY (20 sources) NON FORMULARY Ta ke 1 Capful by mouth daily. Co q 10 (qpower) 0 Active take 1 capsule by mouth at bedti me NON FORMULARY Take 1 capsule by mouth before bedtime. Chicory root. 0 Active take 1 capsule by mouth once dorota ly NON FORMULARY Take 1 capsule by mouth daily. Vitamin D 125 mcg with K 45 mcg 0 Active take 2.5 mL by mouth in the morn ing NON FORMULARY Take 2.5 mL by mouth in the morning and 2.5 mL in the evening. [place] poppy. [address] CADE WORT PO (7 sources) take 2.5 mL by mouth in the morning [facility] CADE WORT PO Take 2.5 mL by mouth in the morning and 2.5 mL in the evening. liquid. 0 Active tyrosine 500 mg oral capsule (7 sources) take 1 capsule by mo uth twice daily L-Tyrosine 500 MG capsule Take by mouth 2 times daily. 0 Active Completed/Discontinued Medications Medication Drug Class(es) Dates Sig (Normalized) Sig (Original) ALPRAZolam 0.25 mg disintegrating oral tablet (2 sources) Benzodiazepine Start: 10-23-2023 End: 10-23-2023 ALPRAZolam (Xanax) disintegrating tablet 0.25 mg calcium chloride 0.0014 meq/ml / potassium chloride 0.004 meq/ml / sodium chloride 0.103 meq/ml / sodium lactate 0.028 meq/ml injectable solution (4 sources) Start: 10-23-2023 End: 10-23-2023 lactated ringers infusion 1 ml diphenhydrAMINE hydrochloride 50 mg/ml cartridge (2 sources) Histamine-1 Receptor Antagonist Start: 10-23-2023 End: 10-23-2023 diphenhydrAMINE (BENADryl) injection 12.5 mg famotidine 20 mg oral tablet (2 sources) Histamine-2 Receptor Antagonist Start: 10-23-2023 End: 10-23-2023 famotidine (Pepcid) tablet 20 mg Start: 10-23-2023 End: 10-23-2023 famotidine (Pepcid) tablet 2 0 mg 2 ml fentaNYL 0.05 mg/ml injection (4 sources) Opioid Agonist Start: 10-23-2023 End: 10-23-2023 fentaNYL (Sublimaze) injection 50 mcg Start: 10-23-2023 End: 10-23-2023 fentaNYL (Sublimaze) injecti on 25 mcg gabapentin 100 mg oral capsule (2 sources) Anti-epileptic Agent Start: 10-23-2023 End: 10-23-2023 gabapentin (Neurontin) capsule 100 mg Start: 10-23-2023 End: 10-23-2023 gabapentin (Neurontin) capsu le 100 mg labetalol (Normodyne,Trandate) injection 5 mg (2 sources) Start: 10-23-2023 End: 10-23-2023 labetalol (Normodyne,Trandate) injection 5 mg 2 ml ondansetron 2 mg/ml injection (2 sources) Serotonin-3 Receptor Antagonist Start: 10-23-2023 End: 10-23-2023 ondansetron (Zofran) injection 4 mg oxyCODONE (4 sources) Opioid Agonist Start: 10-23-2023 End: 10-23-2023 oxyCODONE (Roxicodone) immediate release tablet 5 mg Start: 10-23-2023 End: 10-28-2023 take 1 tablet by mouth every six hours as needed for pain oxyCODONE (Roxicodone) 5 MG immediate release tablet Indications: Acute postoperative pain Take 1 tablet (5 mg) by mouth every 6 hours as needed for moderate pain (4-6) or severe pain (7-10) for up to 5 days. 15 tablet 0 10/23/2023 10/28/2023 Active 5 ml sodium chloride 9 mg/ml injection (20 sources) Start: 10-23-2023 End: 10-23-2023 sodium chloride 0.9% (NS) fl ush 10 mL Start: 10-23-2023 End: 10-23-2023 sodium chloride 0.9% (NS) fl ush 10 mL Start: 10-23-2023 End: 10-23-2023 sodium chloride 0.9 % bolus 500 mL Start: 10-23-2023 End: 10-23-2023 sodium chloride 0.9 % infusi on Start: 10-23-2023 End: 10-23-2023 sodium chloride 0.9% (NS) fl ush 10 mL Problems Active Problems Problem Classification Problem Date Documented Da te Episodic/Chronic Abdominal pain (3 sources) Pelvic and perineal pain; Translations: [PELVIC AND PERINEAL PAIN] Onset: 8 Anxiety disorders (3 sources) Anxiety; Translations: [Anxiety disorder, unspecified] 06-19-2023 Chronic Deficiency and other anemia (1 source) Iron deficiency anemia; Translations: [Iron deficiency anemia, unspecified] Episodic Endometriosis (3 sources) Endometriosis (clinical); Translations: [Endometriosis, unspecified] Onset: 4 11-06-2023 Chronic Female infertility (5 sources) Female infertility, unspecified; Translations: [Infertility, female, of unspecified origin] Onset: 7 Chronic Gastrointestinal hemorrhage (11 sources) Hematochezia; Translations: [Melena] 06-12-2023 Episodic Hemorrhoids (3 sources) Hemorrhoids; Translations: [Unspecified hemorrhoids] 06-19-2023 Episodic Immunity disorders (1 source) Immunodeficiency disorder; Translations: [Immunodeficiency, unspecified] Chronic Menstrual disorders (1 source) Excessive and frequent menstruation with regular cycle; Translations: [Excessive and frequent menstruation with regular cycle] Onset: 4 Chronic Nutritional deficiencies (1 source) Vitamin D deficiency; Translations: [Vitamin D deficiency, unspecified] Chronic Other acquired deformities (3 sources) Lumbar spondylolisthesis; Translations: [Spondylolisthesis, lumbar region] 05-01-2023 Episodic Other acquired deformities (3 sources) Spondylolysis; Translations: [Spondylolysis, lumbar region] 05-01-2023 Episodic Other acquired deformities (3 sources) Spondylolysis, lumbar region; Translations: [Acquired spondylolisthesis] 05-01-2023 Episodic Other acquired deformities (6 sources) Spondylolisthesis, lumbar region; Translations: [Spondylolisthesis] 05-01-2023 Episodic Other and unspecified benign neoplasm (12 sources) Leiomyoma; Translations: [Benign neoplasm of connective and other soft tissue, unspecified] Onset: 4 09-10-2023 Episodic Other and unspecified benign neoplasm (3 sources) Benign neoplasm of soft tissue; Translations: [Benign neoplasm of connective and other soft tissue, unspecified] Onset: 4 10-23-2023 Episodic Other and unspecified benign neoplasm (1 source) Benign neoplasm of connective and other soft tissue, unspecified; Translations: [Benign neoplasm of connective and other soft tissue, unspecified] Onset: 4 Episodic Other gastrointestinal disorders (1 source) Digestive system finding; Translations: [Other specified symptoms and signs involving the digestive system and abdomen] Episodic Other nervous system disorders (2 sources) Acute postoperative pain; Translations: [Other acute postprocedural pain] 10-23-2023 Episodic Other nervous system disorders (2 sources) Other acute postprocedural pain; Translations: [Other acute postprocedural pain] Onset: 4 Episodic Other screening for suspected conditions (not mental disorders or infectious disease) (3 sources) Procedure carried out on subject; Translations: [Encounter for screening for other suspected endocrine disorder] Onset: 5 Episodic Residual codes; unclassified (1 source) Postoperative state; Translations: [Other specified postprocedural states] 11-06-2023 Episodic Residual codes; unclassified (2 sources) Other specified postprocedural states; Translations: [Other specified postprocedural states] Onset: 4 Episodic Spondylosis; intervertebral disc disorders; other back problems (3 sources) Low back pain; Translations: [Low back pain] 05-01-2023 Episodic Unclassified (6 sources) Infertile; Translations: [Infertility] 06-12-2023 Unclassified (2 sources) New Patient; Translations: [New Patient] Onset: 4 Past or Other Problems Problem Classification Problem Date Documented Date Episodic/Chronic Immunizations and screening for infectious disease (1 source) Encounter for screening for human papillomavirus (HPV); Translations: [ENC SCREENING HUMAN PAPILLOMAVIRUS] Onset: 03-27-2017 Episodic Medical examination/evaluatio n (3 sources) Encounter for gynecological examination (general) (routine) without abnormal findings; Translations: [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 It has not been cleared or approved by the Food and Drug Administration. Performed At: [address] [id number] Oniel Barrientos MD Ph:[phone] Performed By: #### A VIKTORIYA, CBC, FERR, GFR, FT4, PRO, CMP, [id number], FE, TSH, ESR, ADIFF, VIDH, FIB, DIMER, FT3 #### [address] [address] #### T4, T3, CRPHS, HOMO #### [facility] [address] [place] [id number] .Auto Diffon 04-08-2025 Basophil, Absolute 0.0 10 3/mcL Normal 0.0-0.3 [facility] Comment on above: Performed By: #### A VIKTORIYA, CBC, FERR, GFR, FT4, PRO, CMP, [id number], FE, TSH, ESR, ADIFF, VIDH, FIB, DIMER, FT3 #### [place] [address], [place] [address] #### T4, T3, CRPHS, HOMO #### [address] [address] Basophils/100 WBC (Bld) 0.5 % Normal 0.0-2.5 [facility] Comment on above: Performed By: #### A VIKTORIYA, CBC, FERR, GFR, FT4, PRO, CMP, [id number], FE, TSH, ESR, ADIFF, VIDH, FIB, DIMER, FT3 #### [place] [address], [place] [address] #### T4, T3, CRPHS, HOMO #### [address] [address] Eosinophil, Absolute 0.1 10 3/mcL Normal 0.0-0.7 [facility] Comment on above: Performed By: #### A VIKTORIYA, CBC, FERR, GFR, FT4, PRO, CMP, [id number], FE, TSH, ESR, ADIFF, VIDH, FIB, DIMER, FT3 #### [address] [address] #### T4, T3, CRPHS, HOMO #### [address] [address] Eosinophils/100 WBC (Bld) 1.5 % Normal 0.0-6.0 [facility] Comment on above: Performed By: #### A VIKTORIYA, CBC, FERR, GFR, FT4, PRO, CMP, [id number], FE, TSH, ESR, ADIFF, VIDH, FIB, DIMER, FT3 #### [address] [address] #### T4, T3, CRPHS, HOMO #### [address] [address] Lymphocyte, Absolute 1.9 10 3/mcL Normal 0.9-4.3 [facility] Comment on above: Performed By: #### A VIKTORIYA, CBC, FERR, GFR, FT4, PRO, CMP, [id number], FE, TSH, ESR, ADIFF, VIDH, FIB, DIMER, FT3 #### [address] [address] #### T4, T3, CRPHS, HOMO #### [address] [address] Lymphocytes/100 WBC (Bld) 38.7 % Normal 20.0-40.0 [facility] Comment on above: Performed By: #### A VIKTORIYA, CBC, FERR, GFR, FT4, PRO, CMP, [id number], FE, TSH, ESR, ADIFF, VIDH, FIB, DIMER, FT3 #### [address] [address] #### T4, T3, CRPHS, HOMO #### [address] [address] Monocyte, Absolute 0.4 10 3/mcL Normal 0.1-1.4 [facility] Comment on above: Performed By: #### A VIKTORIYA, CBC, FERR, GFR, FT4, PRO, CMP, [id number], FE, TSH, ESR, ADIFF, VIDH, FIB, DIMER, FT3 #### [address] [address] #### T4, T3, CRPHS, HOMO #### [address] [address] Monocytes/100 WBC (Bld) 7.6 % Normal 2.0-13.0 [facility] Comment on above: Performed By: #### A VIKTORIYA, CBC, FERR, GFR, FT4, PRO, CMP, [id number], FE, TSH, ESR, ADIFF, VIDH, FIB, DIMER, FT3 #### [address] [address] #### T4, T3, CRPHS, HOMO #### [address] [address] Neutrophils/100 WBC (Bld) 51.7 % Normal 50.0-75.0 [facility] Comment on above: Performed By: #### A VIKTORIYA, CBC, FERR, GFR, FT4, PRO, CMP, [id number], FE, TSH, ESR, ADIFF, VIDH, FIB, DIMER, FT3 #### [address] [address] #### T4, T3, CRPHS, HOMO #### [address] [address] .GFRon 04-08-2025 GFR/1.73 sq M.predicted among non-blacks MDRD (S/P/Bld) [Vol rate/Area] mL/min/{1.73_m2} Normal [facility] Comment on above: Result Comment: Stages of Chronic Kidney Disease (CKD) Stage Description eGFR(ml/min/1.73 sq.m.) CKD 1 Normal kidney function or >=90 normal kindney function with possible kidney damage (ex. Proteinuria) CKD 2 Kidney damage with mild loss 60-89 of kidney function CKD 3a Mild to moderate loss of kidney 45-59 function CKD 3b Moderate to severe loss of 30-44 of kindey function CKD 4 Severe loss of kidney function 15-29 CKD 5 Kidney failure <15 Note: (go live 2024) the eGFR calculation was updated to the 2020 CKD-EPI creatinine equation without a race factor to calculate the eGFR results. Performed By: #### A VIKTORIYA, CBC, FERR, GFR, FT4, PRO, CMP, [id number], FE, TSH, ESR, ADIFF, VIDH, FIB, DIMER, FT3 #### [address] [address] #### T4, T3, CRPHS, HOMO #### [address] [address] .NEUABSon 04-08-2025 Neutrophil, Absolute 2.6 10 3/mcL Normal 2.3-8.1 [facility] Comment on above: Performed By: #### A VIKTORIYA, CBC, FERR, GFR, FT4, PRO, CMP, [id number], FE, TSH, ESR, ADIFF, VIDH, FIB, DIMER, FT3 #### [address] [address] #### T4, T3, CRPHS, HOMO #### [address] [address] CBCon 04-08-2025 Erythrocyte distribution width (RBC) [Ratio] 13.9 % Normal 11.5-15.5 [facility] Comment on above: Performed By: #### A VIKTORIYA, CBC, FERR, GFR, FT4, PRO, CMP, [id number], FE, TSH, ESR, ADIFF, VIDH, FIB, DIMER, FT3 #### [place] [address] #### T4, T3, CRPHS, HOMO #### [address] [address] Hematocrit (Bld) [Volume fraction] 39.2 % Normal 34.0-46.0 [facility] Comment on above: Performed By: #### A VIKTORIYA, CBC, FERR, GFR, FT4, PRO, CMP, [id number], FE, TSH, ESR, ADIFF, VIDH, FIB, DIMER, FT3 #### [place] [address] #### T4, T3, CRPHS, HOMO #### [place] [address] Hgb 13.1 G/dL Normal 12.0-16.0 [facility] Comment on above: Performed By: #### A VIKTORIYA, CBC, FERR, GFR, FT4, PRO, CMP, [id number], FE, TSH, ESR, ADIFF, VIDH, FIB, DIMER, FT3 #### [place] [address] #### T4, T3, CRPHS, HOMO #### [address] [address] MCH (RBC) [Entitic mass] 29.9 pg Normal 27.0-33.0 [facility] Comment on above: Performed By: #### A VIKTORIYA, CBC, FERR, GFR, FT4, PRO, CMP, [id number], FE, TSH, ESR, ADIFF, VIDH, FIB, DIMER, FT3 #### [place] [address] #### T4, T3, CRPHS, HOMO #### [address] [address] MCHC 33.5 G/dL Normal 32.0-36.0 [facility] Comment on above: Performed By: #### A VIKTORIYA, CBC, FERR, GFR, FT4, PRO, CMP, [id number], FE, TSH, ESR, ADIFF, VIDH, FIB, DIMER, FT3 #### [place] [address] #### T4, T3, CRPHS, HOMO #### [place] [address] MCV (RBC) [Entitic vol] 89.1 fL Normal 80.0-99.0 [facility] Comment on above: Performed By: #### A VIKTORIYA, CBC, FERR, GFR, FT4, PRO, CMP, [id number], FE, TSH, ESR, ADIFF, VIDH, FIB, DIMER, FT3 #### [place] [address] #### T4, T3, CRPHS, HOMO #### [place] [address] Platelet 259 10 3/mcL Normal 150-450 [facility] Comment on above: Performed By: #### A VIKTORIYA, CBC, FERR, GFR, FT4, PRO, CMP, [id number], FE, TSH, ESR, ADIFF, VIDH, FIB, DIMER, FT3 #### [place] [address] #### T4, T3, CRPHS, HOMO #### [place] [id number] Platelet mean volume (Bld) [Entitic vol] 8.7 fL Normal 6.6-10.5 [facility] Comment on above: Performed By: #### A VIKTORIYA, CBC, FERR, GFR, FT4, PRO, CMP, [id number], FE, TSH, ESR, ADIFF, VIDH, FIB, DIMER, FT3 #### [place] [address] #### T4, T3, CRPHS, HOMO #### [place] [address] RBC 4.40 10 6/mcL Normal 4.10-5.30 [facility] Comment on above: Performed By: #### A VIKTORIYA, CBC, FERR, GFR, FT4, PRO, CMP, [id number], FE, TSH, ESR, ADIFF, VIDH, FIB, DIMER, FT3 #### [address] [address] #### T4, T3, CRPHS, HOMO #### [address] [address] WBC 4.9 10 3/mcL Normal 4.5-10.8 [facility] Comment on above: Performed By: #### A VIKTORIYA, CBC, FERR, GFR, FT4, PRO, CMP, [id number], FE, TSH, ESR, ADIFF, VIDH, FIB, DIMER, FT3 #### [address] [address] #### T4, T3, CRPHS, HOMO #### [address] [address] [facility] Albumin Level 4.0 G/dL Normal 3.5-5.0 [facility] Comment on above: Performed By: #### A VIKTORIYA, CBC, FERR, GFR, FT4, PRO, CMP, [id number], FE, TSH, ESR, ADIFF, VIDH, FIB, DIMER, FT3 #### [address] [address] #### T4, T3, CRPHS, HOMO #### [address] [address] Albumin/Globulin [Mass ratio] 1.2 {ratio} Normal 1.1-2.5 [facility] Comment on above: Performed By: #### A VIKTORIYA, CBC, FERR, GFR, FT4, PRO, CMP, [id number], FE, TSH, ESR, ADIFF, VIDH, FIB, DIMER, FT3 #### [address] [address] #### T4, T3, CRPHS, HOMO #### [address] [address] ALP [Catalytic activity/Vol] 49 U/L Normal 40-135 [facility] Comment on above: Performed By: #### A VIKTORIYA, CBC, FERR, GFR, FT4, PRO, CMP, [id number], FE, TSH, ESR, ADIFF, VIDH, FIB, DIMER, FT3 #### [address] [address] #### T4, T3, CRPHS, HOMO #### [address] [address] ALT [Catalytic activity/Vol] 29 U/L Normal 14-59 [facility] Comment on above: Performed By: #### A VIKTORIYA, CBC, FERR, GFR, FT4, PRO, CMP, [id number], FE, TSH, ESR, ADIFF, VIDH, FIB, DIMER, FT3 #### [place] [address] #### T4, T3, CRPHS, HOMO #### [address] [address] AST [Catalytic activity/Vol] 17 U/L Normal 10-40 [facility] Comment on above: Performed By: #### A VIKTORIYA, CBC, FERR, GFR, FT4, PRO, CMP, [id number], FE, TSH, ESR, ADIFF, VIDH, FIB, DIMER, FT3 #### [address] [address] #### T4, T3, CRPHS, HOMO #### [address] [address] Bili Total 0.3 mg/dL Normal 0.2-1.0 [facility] Comment on above: Result Comment: Use of this assay is not recommended for patients undergoing treatment with eltrombopag due to the potential for falsely elevated results. Performed By: #### A VIKTORIYA, CBC, FERR, GFR, FT4, PRO, CMP, [id number], FE, TSH, ESR, ADIFF, VIDH, FIB, DIMER, FT3 #### [place] [address] #### T4, T3, CRPHS, HOMO #### [address] [address] BUN/Creatinine Ratio 25 ratio Normal 7-27 [facility] Comment on above: Performed By: #### A VIKTORIYA, CBC, FERR, GFR, FT4, PRO, CMP, [id number], FE, TSH, ESR, ADIFF, VIDH, FIB, DIMER, FT3 #### [place] [address] #### T4, T3, CRPHS, HOMO #### [address] [address] Calcium [Mass/Vol] 9.1 mg/dL Normal 8.4-10.2 [facility] Comment on above: Performed By: #### A VIKTORIYA, CBC, FERR, GFR, FT4, PRO, CMP, [id number], FE, TSH, ESR, ADIFF, VIDH, FIB, DIMER, FT3 #### [place] [address] #### T4, T3, CRPHS, HOMO #### [address] [address] Chloride [Moles/Vol] 105 mmol/L Normal 98-107 [facility] Comment on above: Performed By: #### A VIKTORIYA, CBC, FERR, GFR, FT4, PRO, CMP, [id number], FE, TSH, ESR, ADIFF, VIDH, FIB, DIMER, FT3 #### [address] [address] #### T4, T3, CRPHS, HOMO #### [address] [address] CO2 [Moles/Vol] 25 mmol/L Normal 22-29 [facility] Comment on above: Performed By: #### A VIKTORIYA, CBC, FERR, GFR, FT4, PRO, CMP, 140264, FE, TSH, ESR, ADIFF, VIDH, FIB, DIMER, FT3 #### [place] [id number] #### T4, T3, CRPHS, HOMO #### [address] [address] Creatinine [Mass/Vol] 0.52 mg/dL Normal 0.51-0.95 [facility] Comment on above: Performed By: #### A VIKTORIYA, CBC, FERR, GFR, FT4, PRO, CMP, 556804, FE, TSH, ESR, ADIFF, VIDH, FIB, DIMER, FT3 #### [address] [address] #### T4, T3, CRPHS, HOMO #### [address] [address] Electrolyte Balance 7.0 mEq/L Normal 4.0-15.0 [facility] Comment on above: Performed By: #### A VIKTORIYA, CBC, FERR, GFR, FT4, PRO, CMP, [id number], FE, TSH, ESR, ADIFF, VIDH, FIB, DIMER, FT3 #### [address] [address] #### T4, T3, CRPHS, HOMO #### [address] [address] Globulin 3.2 G/dL Normal 2.7-4.4 [facility] Comment on above: Performed By: #### A VIKTORIYA, CBC, FERR, GFR, FT4, PRO, CMP, [id number], FE, TSH, ESR, ADIFF, VIDH, FIB, DIMER, FT3 #### [address] [address] #### T4, T3, CRPHS, HOMO #### [address] [address] Glucose [Mass/Vol] 109 mg/dL High 70-105 [facility] Comment on above: Performed By: #### A VIKTORIYA, CBC, FERR, GFR, FT4, PRO, CMP, [id number], FE, TSH, ESR, ADIFF, VIDH, FIB, DIMER, FT3 #### [address] [address] #### T4, T3, CRPHS, HOMO #### [address] [address] Potassium [Moles/Vol] 4.1 mmol/L Normal 3.5-5.1 [facility] Comment on above: Performed By: #### A VIKTORIYA, CBC, FERR, GFR, FT4, PRO, CMP, [id number], FE, TSH, ESR, ADIFF, VIDH, FIB, DIMER, FT3 #### [address] [address] #### T4, T3, CRPHS, HOMO #### [address] [address] Sodium [Moles/Vol] 137 mmol/L Normal 136-145 [facility] Comment on above: Performed By: #### A VIKTORIYA, CBC, FERR, GFR, FT4, PRO, CMP, [id number], FE, TSH, ESR, ADIFF, VIDH, FIB, DIMER, FT3 #### [address] [address] #### T4, T3, CRPHS, HOMO #### [address] [address] Total Protein 7.2 G/dL Normal 6.4-8.2 [facility] Comment on above: Performed By: #### A VIKTORIYA, CBC, FERR, GFR, FT4, PRO, CMP, [id number], FE, TSH, ESR, ADIFF, VIDH, FIB, DIMER, FT3 #### [address] [address] #### T4, T3, CRPHS, HOMO #### [address] [address] Urea nitrogen [Mass/Vol] 13 mg/dL Normal 7-18 [facility] Comment on above: Performed By: #### A VIKTORIYA, CBC, FERR, GFR, FT4, PRO, CMP, 110542, FE, TSH, ESR, ADIFF, VIDH, FIB, DIMER, FT3 #### [address] [address] #### T4, T3, CRPHS, HOMO #### [address] [address] CRPon 04-08-2025 CRP, High Sensitive 0.30 mg/L Normal 0.20-3.00 [facility] Comment on above: Result Comment: Rela tive Risk Category and Average hs-CRP Level: Higher Risk: > 5.0 mg/L Guidelines support that hs-CRP can be used as an independent predictor of increased coronary risk; however, hs-CRP results should only be interpreted in conjunction with other cardiac risk factors in establishing overall cardiac risk for a given patient. Performed By: #### A VIKTORIYA, CBC, FERR, GFR, FT4, PRO, CMP, [id number], FE, TSH, ESR, ADIFF, VIDH, FIB, DIMER, FT3 #### [address] [address] #### T4, T3, CRPHS, HOMO #### [place] [id number] DIMERon 04-08-2025 D-Dimer <200 Normal 0-230 [facility] Comment on above: Result Comment: DDN: Results reported in D-DU ng/mL. Negative for D-dimer. DVT/PE is highly unlikely. Note: False negative results may be seen in patients on anticoagulant therapy. The result of the D-Dimer test should be evaluated in the context of all the clinical and laboratory data available. In those instances where the laboratory result does not agree with the clinical evaluation, additional tests should be performed accordingly. If the D-Dimer result is used to exclude DVT or PE, the recommended cutoff value is less than 230 ng/mL. The D-Dimer result should not be used alone to rule in DVT/PE, but should be used in conjunction with a clinical pretest probability (PTP)assessment model to exclude venous thromboembolism (VTE) in patients suspected of deep venous thrombosis (DVT) and pulmonary embolism (PE). Performed By: #### A VIKTORIYA, CBC, FERR, GFR, FT4, PRO, CMP, 956987, FE, TSH, ESR, ADIFF, VIDH, FIB, DIMER, FT3 #### [address] [address] #### T4, T3, CRPHS, HOMO #### [address] [address] ESRon 04-08-2025 Erythrocyte Sed Rate 4 mm/hr Normal 0-20 [facility] Comment on above: Performed By: #### A VIKTORIYA, CBC, FERR, GFR, FT4, PRO, CMP, 120718, FE, TSH, ESR, ADIFF, VIDH, FIB, DIMER, FT3 #### [address] [address] #### T4, T3, CRPHS, HOMO #### [address] [address] FEon 04-08-2025 Iron [Mass/Vol] 71 ug/dL Normal 50-170 [facility] Comment on above: Performed By: #### A VIKTORIYA, CBC, FERR, GFR, FT4, PRO, CMP, 642055, FE, TSH, ESR, ADIFF, VIDH, FIB, DIMER, FT3 #### [place] [address] #### T4, T3, CRPHS, HOMO #### [place] [id number] Enrique 04-08-2025 Ferritin [Mass/Vol] 25.0 ng/mL Normal 8.0-252.0 [facility] Comment on above: Performed By: #### A VIKTORIYA, CBC, FERR, GFR, FT4, PRO, CMP, 926103, FE, TSH, ESR, ADIFF, VIDH, FIB, DIMER, FT3 #### [place] [address] #### T4, T3, CRPHS, HOMO #### [place] [id number] FIBon 04-08-2025 Fibrinogen 389.0 mg/dL Normal 250.0-560.0 [facility] Comment on above: Performed By: #### A VIKTORIYA, CBC, FERR, GFR, FT4, PRO, CMP, 940634, FE, TSH, ESR, ADIFF, VIDH, FIB, DIMER, FT3 #### [place] [address] #### T4, T3, CRPHS, HOMO #### [address] [address] FT3on 04-08-2025 Free T3 [Mass/Vol] 2.72 pg/mL Normal 2.30-4.00 [facility] Comment on above: Performed By: #### A VIKTORIYA, CBC, FERR, GFR, FT4, PRO, CMP, 311273, FE, TSH, ESR, ADIFF, VIDH, FIB, DIMER, FT3 #### [address] [address] #### T4, T3, CRPHS, HOMO #### [place] [address] FT4on 04-08-2025 Free T4 [Mass/Vol] 0.95 ng/dL Normal 0.76-1.46 [facility] Comment on above: Performed By: #### A VIKTORIYA, CBC, FERR, GFR, FT4, PRO, CMP, 787348, FE, TSH, ESR, ADIFF, VIDH, FIB, DIMER, FT3 #### [place] [address] #### T4, T3, CRPHS, HOMO #### [place] [address] HOMOon 04-08-2025 Homocysteine 5.7 umol/l Normal 3.7-13.9 [facility] Comment on above: Result Comment: No te - New Reference Range in effect 20 Performed By: #### A VIKTORIYA, CBC, FERR, GFR, FT4, PRO, CMP, 232587, FE, TSH, ESR, ADIFF, VIDH, FIB, DIMER, FT3 #### [address] [address] #### T4, T3, CRPHS, HOMO #### [place] [address] LABORATORYOrdered By: SYSTEM SYSTEM on 04-08-2025 25-hydroxyvitamin D3 [Mass/Vol] 76.2 ng/mL Invalid Interpretation Code AO ADM SS Comment on above: Interpretive Data: I nterpretive Values Based on Total 25(OH) Vitamin D: Deficient <20 ng/mL Insufficient 20 - <30 ng/mL Sufficient 30-100 ng/mL Albumin BCP dye [Mass/Vol] 4.0 G/dL Normal 3.5 - 5.0 G/dL AO ADM SS Albumin/Globulin [Mass ratio] 1.2 {ratio} Normal 1.1 - 2.5 ratio AO ADM SS ALP [Catalytic activity/Vol] 49 U/L Normal 40 - 135 U/L AO ADM SS ALT With P-5'-P [Catalytic activity/Vol] 29 U/L Normal 14 - 59 U/L AO ADM SS AST With P-5'-P [Catalytic activity/Vol] 17 U/L Normal 10 - 40 U/L AO ADM SS Basophils (Bld) [#/Vol] 0.0 103/mcL Normal 0.0 - 0.3 10^3/mcL AO Workflow SS Basophils/100 WBC (Bld) 0.5 % Normal 0.0 - 2.5 % AO Workflow SS Bilirubin [Mass/Vol] 0.3 mg/dL Normal 0.2 - 1 .0 mg/dL AO ADM SS Comment on above: Interpretive Data: U se of this assay is not recommended for patients undergoing treatment with eltrombopag due to the potential for falsely elevated results. Calcium [Mass/Vol] 9.1 mg/dL Normal 8.4 - 10. 2 mg/dL AO ADM SS Chloride [Moles/Vol] 105 mmol/L Normal 98 - 10 7 mmol/L AO ADM SS CO2 [Moles/Vol] 25 mmol/L Normal 22 - 29 mmol/L AO ADM SS Creatinine [Mass/Vol] 0.52 mg/dL Normal 0.51 - 0.95 mg/dL AO ADM SS CRP High sensitivity method [Mass/Vol] 0.30 mg/L Normal 0.20 - 3.00 mg/L AH ADM SS Comment on above: Interpretive Data: R elative Risk Category and Average hs-CRP Level: Higher Risk: > 5.0 mg/L Guidelines support that hs-CRP can be used as an independent predictor of increased coronary risk; however, hs-CRP results should only be interpreted in conjunction with other cardiac risk factors in establishing overall cardiac risk for a given patient. Electrolyte Balance 7.0 mEq/L Normal 4.0 - 15 .0 mEq/L AO ADM SS Eosinophil, Absolute 0.1 103/mcL Normal 0.0 - 0 .7 10^3/mcL AO Workflow SS Eosinophils/100 WBC (Bld) 1.5 % Normal 0.0 - 6.0 % AO Workflow SS Erythrocyte distribution width (RBC) [Ratio] 13.9 % Normal 11.5 - 15.5 % AO Workflow SS Estimated Glomerular Filtration Rate ml/min/1.73sqm Invalid Interpretation Code AO Chemistry S Comment on above: Interpretive Data: Stages of Chronic Kidney Disease (CKD) Stage Description eGFR(ml/min/1.73 sq.m.) CKD 1 Normal kidney function or >=90 normal kindney function with possible kidney damage (ex. Proteinuria) CKD 2 Kidney damage with mild loss 60-89 of kidney function CKD 3a Mild to moderate loss of kidney 45-59 function CKD 3b Moderate to severe loss of 30-44 of kindey function CKD 4 Severe loss of kidney function 15-29 CKD 5 Kidney failure <15 Note: (go live 2024) the eGFR calculation was updated to the 2020 CKD-EPI creatinine equation without a race factor to calculate the eGFR results. Ferritin [Mass/Vol] 25.0 ng/mL Normal 8.0 - 25 2.0 ng/mL AO ADM SS Fibrin D-dimer DDU (PPP) [Mass/Vol] ng/mL D-DU Normal 0 - 230 ng/mL D-DU AO [facility] SS Comment on above: Result Comment: DDN: Results reported in D-DU ng/mL. Negative for D-dimer. DVT/PE is highly unlikely. Note: False negative results may be seen in patients on anticoagulant therapy. Interpretive Data: T he result of the D-Dimer test should be evaluated in the context of all the clinical and laboratory data available. In those instances where the laboratory result does not agree with the clinical evaluation, additional tests should be performed accordingly. If the D-Dimer result is used to exclude DVT or PE, the recommended cutoff value is less than 230 ng/mL. The D-Dimer result should not be used alone to rule in DVT/PE, but should be used in conjunction with a clinical pretest probability (PTP)assessment model to exclude venous thromboembolism (VTE) in patients suspected of deep venous thrombosis (DVT) and pulmonary embolism (PE). Fibrinogen Coag (PPP) [Mass/Vol] 389.0 mg/dL Normal 250.0 - 560.0 mg/dL AO [facility] SS Free T3 [Mass/Vol] 2.72 pg/mL Normal 2.30 - 4. 00 pg/mL AO ADM SS Free T4 [Mass/Vol] 0.95 ng/dL Normal 0.76 - 1. 46 ng/dL AO ADM SS Globulin 3.2 G/dL Normal 2.7 - 4.4 G/dL AO ADM SS Glucose [Mass/Vol] 109 mg/dL High 70 - 105 mg/dL AO ADM SS Hematocrit (Bld) [Volume fraction] 39.2 % Normal 34.0 - 46.0 % AO Workflow SS Hemoglobin (Bld) [Mass/Vol] 13.1 G/dL Normal 12.0 - 16.0 G/dL AO Workflow SS Homocysteine [Moles/Vol] 5.7 umol/L Normal 3.7 - 13.9 umol/L AH ADM SS Comment on above: Interpretive Data: * *Note - New Reference Range in effect 20 INR Coag (PPP) [Relative time] 1.0 {INR} Invalid Interpretation Code AO [facility] SS Comment on above: Interpretive Data: Yola villasenor [employer] (CHEST, 1991, 102:312S-25S) recommended therapeutic range for oral anticoagulant therapy is: LOW RISK: Prophylaxis of venous thrombosis INR: 2.0-3.0 Treatment of pulmonary embolism 2.0-3.0 Prevention of systemic embolism 2.0-3.0 HIGH RISK: Mechanical prosthetic valves 2.5-3.5 Iron [Mass/Vol] 71 ug/dL Normal 50 - 170 mcg/dL AO ADM SS Lymphocytes (Bld) [#/Vol] 1.9 103/mcL Normal 0.9 - 4.3 10^3/mcL AO Workflow SS Lymphocytes/100 WBC (Bld) 38.7 % Normal 20.0 - 40.0 % AO Workflow SS MCH (RBC) [Entitic mass] 29.9 pg Normal 27.0 - 33.0 pg AO Workflow SS MCHC 33.5 G/dL Normal 32.0 - 36.0 G/dL AO Workflow SS MCV (RBC) [Entitic vol] 89.1 fL Normal 80.0 - 99.0 fL AO Workflow SS Monocytes (Bld) [#/Vol] 0.4 103/mcL Normal 0.1 - 1.4 10^3/mcL AO Workflow SS Monocytes/100 WBC (Bld) 7.6 % Normal 2.0 - 13.0 % AO Workflow SS Neutrophils (Bld) [#/Vol] 2.6 103/mcL Normal 2.3 - 8.1 10^3/mcL AO Workflow SS Neutrophils/100 WBC (Bld) 51.7 % Normal 50.0 - 75.0 % AO Workflow SS Platelet mean volume (Bld) [Entitic vol] 8.7 fL Normal 6.6 - 10.5 fL AO Workflow SS Platelets (Bld) [#/Vol] 259 103/mcL Normal 150 - 450 10^3/mcL AO Workflow SS Potassium [Moles/Vol] 4.1 mmol/L Normal 3.5 - 5.1 mmol/L AO ADM SS Protein [Mass/Vol] 7.2 G/dL Normal 6.4 - 8.2 G/dL AO ADM SS PT Coag (PPP) [Time] 11.7 s Normal 9.0 - 1 4.4 seconds AO [facility] SS RBC (Bld) [#/Vol] 4.40 106/mcL Normal 4.10 - 5.3 0 10^6/mcL AO Workflow SS Sodium [Moles/Vol] 137 mmol/L Normal 136 - 145 mmol/L AO ADM SS T3 [Mass/Vol] 106 ng/dL Normal 60 - 181 ng/dL AH ADM SS T4 [Mass/Vol] 7.1 ug/dL Normal 4.5 - 10.9 mcg/dL AH ADM SS Comment on above: Interpretive Data: * *Note - New Reference Range in effect 20 TSH Qn 1.63 m[IU]/L Normal 0.36 - 3.74 mcIU/mL AO ADM SS Urea nitrogen [Mass/Vol] 13 mg/dL Normal 7 - 18 mg/dL AO ADM SS Urea nitrogen/Creatinine [Mass ratio] 25 ratio Normal 7 - 27 ratio AO ADM SS WBC (Bld) [#/Vol] 4.9 103/mcL Normal 4.5 - 10.8 10^3/mcL AO Workflow SS LABORATORYOrdered By: Donta Magallon on 04-08-2025 ESR Photometric method (Bld) [Velocity] 4 mm/hr Normal 0 - 20 mm/hr AO Man Heme SS PROon 04-08-2025 PT Coag (PPP) [Time] 11.7 s Normal 9.0-14.4 [facility] Comment on above: Performed By: #### A VIKTORIYA, CBC, FERR, GFR, FT4, PRO, CMP, [id number], FE, TSH, ESR, ADIFF, VIDH, FIB, DIMER, FT3 #### [place] [address] #### T4, T3, CRPHS, HOMO #### [place] [address] PT International Ratio 1.0 Normal [facility] Comment on above: Result Comment: [employer] (CHEST, 1992, 102:312S-25S) recommended therapeutic range for oral anticoagulant therapy is: LOW RISK: Prophylaxis of venous thrombosis INR: 2.0-3.0 Treatment of pulmonary embolism 2.0-3.0 Prevention of systemic embolism 2.0-3.0 HIGH RISK: Mechanical prosthetic valves 2.5-3.5 Performed By: #### A VIKTORIYA, CBC, FERR, GFR, FT4, PRO, CMP, 574743, FE, TSH, ESR, ADIFF, VIDH, FIB, DIMER, FT3 #### [place] [address] #### T4, T3, CRPHS, HOMO #### [place] [address] T3on 04-08-2025 Total T3 106 ng/dL Normal 60-181 [facility] Comment on above: Performed By: #### A VIKTORIYA, CBC, FERR, GFR, FT4, PRO, CMP, 444893, FE, TSH, ESR, ADIFF, VIDH, FIB, DIMER, FT3 #### [place] [address] #### T4, T3, CRPHS, HOMO #### [address] [address] T4on 04-08-2025 T4 [Mass/Vol] 7.1 ug/dL Normal 4.5-10.9 [facility] Comment on above: Result Comment: No te - New Reference Range in effect 20 Performed By: #### A VIKTORIYA, CBC, FERR, GFR, FT4, PRO, CMP, 357830, FE, TSH, ESR, ADIFF, VIDH, FIB, DIMER, FT3 #### [address] [address] #### T4, T3, CRPHS, HOMO #### [place] [address] TSHon 04-08-2025 TSH Qn 1.63 m[IU]/L Normal 0.36-3.74 [facility] Comment on above: Performed By: #### A VIKTORIYA, CBC, FERR, GFR, FT4, PRO, CMP, 433280, FE, TSH, ESR, ADIFF, VIDH, FIB, DIMER, FT3 #### [place] [address] #### T4, T3, CRPHS, HOMO #### [place] [address] VIDHon 04-08-2025 Vit. D 25-Hydroxy 76.2 ng/mL Normal [facility] Comment on above: Result Comment: Inte rpretive Values Based on Total 25(OH) Vitamin D: Deficient <20 ng/mL Insufficient 20 - <30 ng/mL Sufficient 30-100 ng/mL Performed By: #### A VIKTORIYA, CBC, FERR, GFR, FT4, PRO, CMP, 227387, FE, TSH, ESR, ADIFF, VIDH, FIB, DIMER, FT3 #### [address] [address] #### T4, T3, CRPHS, HOMO #### [address] [address] SCRN MAMM (CAD)W/TONYEriberto Fall n 08-21-2024 SCRN MAMM (CAD)W/TONY JUDY [facility] [address] [place] [address] [id number] SCRN MAMM (CAD)W/TONY KIM MR#: [id number] Acct: [id number] Name: CONI QUINTERO #: [id number] : 1985 F 38 From: Jeremi Ibarra MD PCP: Dr. Kellee Kinney MD Status: REG CLI Study: SCRN MAMM (CAD)W/TONY BILAT Date of Exam: 07/27 03/18 Exam# [id number] Ordering Dr: Veronica Gamboa NP, NP -Ruthie [id number] MAMMOGRAPHY - BILATERAL SCREENING 3-D TOMOSYNTHESIS REASON FOR EXAM: Female, 38 years old. screen PERTINENT HISTORY: No significant family history. TECHNIQUE: 2-D mammograms and 3-D Tomosynthesis of the breast (s) were performed. CAD was performed. COMPARISON: 06/21/2023 FINDINGS: The breast composition is heterogeneously dense that can obscure small breast masses. Scattered benign calcifications are seen. No dense spiculated masses or suspicious microcalcifications are identified. No architectural distortion is identified. There is no skin thickening or retraction. There has been no significant change since the prior study. BI/SCRN MAMM (CAD)W/TONY BILAT IMPRESSION: No mammographic signs of malignancy. Routine yearly mammograms recommended. ASSESSMENT CATEGORY: BIRADS Category 1: Negative. A letter regarding these results will be sent to the patient by the facility within 30 days. FOLLOW UP RECOMMENDATION: Yearly follow up mammogram recommended. (A) Approximately 10% of breast cancers are not detected by mammography. A normal mammogram should not delay biopsy of a clinically suspicious abnormality. Electronically Signed: Jeremi Ibarra MD at 20:01 [facility] , CC: JOSE MIGUEL Gamboa; Dr. Kellee Kinney MD Drum Carrier: Signed Normal [facility] Pelvic w/ Transvaginalon Pelvic w/ Transvaginal [facility] [address] [place] [id number] Pelvic w/ Transvaginal MR#: [id number] Acct: [id number] Name: CONI QUINTERO Rep #: [id number] : 1985 F 38 From: Luis Carlos Pham PCP: Dr. Kellee Kinney MD Status: REG CLI Study: Pelvic w/ Transvaginal Date of Exam: 06/27/24 Exam# [id number] Ordering Dr: Veronica Gamboa NP BAIL AGENT -C [id number] EXAM: US PELVIS TRANSABDOMINAL AND TRANSVAGINAL, COMPLETE CLINICAL INDICATION: hx of fibroids, pelvic pain, heavy menses TECHNIQUE: Transabdominal and transvaginal pelvic ultrasound was performed with grayscale and color Doppler imaging. Transvaginal imaging was used for better evaluation of the endometrium and adnexa. COMPARISON: CT scan of the abdomen and pelvis 07/17/2023. MR pelvis 08/28/2019. FINDINGS: UTERUS/CERVIX: Posterior fundal intramural leiomyoma measuring 2.4 x 2.6 x 1.8 cm. Anteverted. The uterus measures 8.1 x 5.2 x 4.4 cm. The endometrial stripe measures 0.9 cm in thickness. RIGHT OVARY: Simple right ovarian cyst or follicle measuring 1.7 cm in maximum diameter. No follow-up is necessary. Blood flow is present in the right ovary. The right ovary measures 4.1 x 3.6 x 2.7 cm. LEFT OVARY: Small calcification left ovary. Blood flow is present in the left ovary. The left ovary measures 3.2 x 2.0 x 1.9 cm. FREE FLUID: None. BLADDER: Unremarkable as visualized. Wall is normal thickness for degree of distention. US/Pelvic w/ Transvaginal IMPRESSION: 1. Posterior fundal intramural leiomyoma measuring 2.4 x 2.6 x 1.8 cm. 2. Small calcification left ovary. No follow-up necessary. 3. Simple right ovarian cyst or follicle measuring 1.7 cm in maximum diameter. No follow-up is necessary. Electronically Signed: Luis Carlos Olivarez MD at 1:19 EDT , CC: JOSE MIGUEL Gamboa; Dr. Kellee Kinney MD Drum Carrier: Signed [facility] 36on 11-13-2023 36 LVM for patient. Oka y to do both to tolerability. Take breaks as needed. Can call office back or send [employer] message if she has other questions. [facility] 36on 11-12-2023 36 Name of caller: Alfonso del valle Contact phone number: [phone] Relationship to Patient: patient Provider: Dr. Vila Practice: Pelvic Health Chief Complaint/Reason for Call: Patient called in with post-op questions from surgery done on 10/23. States she would like to know if she is able to start doing pilates again and walking her dogs, patient also wanted to note she has large dogs that pull a lot while walking. Patient requesting call back to discuss. Please Advise Best time of day caller can be reached: any Patient advised that office/PCP has 24-48 business hours to return their call: No Normal [facility] Office Visiton 11-06-2023 Follow-up visit [id number] Alfonso Quintero 1985 F Date Provider Department Center 11/06/2023 [id number] [facility] None Family History Problem Relation Age of Onset Heart defect Paternal Grandfather Heart defect Paternal Grandmother Breast cancer Maternal Grandmother Colon cancer Maternal Grandfather Family Status - Relation Status Age at Paternal Grandfather Paternal Grandmother Maternal Grandmother Maternal Grandfather Level of Service:64920 DE POSTOP FOLLOW UP VISIT RELATED TO ORIGINAL PX Reason for Visit and Comments: Post-op Visit [559] [facility] Progress Noteon 11-06-2023 Progress Note CC: patient here for post-op visit s/p Diagnostic hysteroscopy, Laparoscopic myomectomy, resection of endometriosis on 10/23/23. Denies f/c, n/v, CP, or SOB. Eating and drinking normally. Moving around as well as she can. Denies bowel or bladder complaints. Overall doing very well since surgery. Op Note Surgical Findings: Normal external genitalia. Grade 1 apical prolapse with small, nulliparous cervix. Hysteroscopy attempted and unable to be performed due to suspected obstruction from intracavity fibroid. Intraabdominal survey revealed normal stomach, gallbladder, and appendix. No adhesions noted. Small powder burn lesion overlying the left uterosacral ligament <1cm total surface area. Normal appearing bilateral fallopian tubes and ovaries. Uterus found to have a 3-4cm subserosal and intramural anterior fibroid, a 3cm pedunculated posterior fibroid, and a deeper, 2-3cm type 3 intramural fibroid abutting the endometrial cavity. Pathology: Final Diagnosis A. LEFT UTEROSACRAL, BIOPSY - FIBROADIPOSE TISSUE WITH INVOLVEMENT BY ENDOMETRIOSIS. B. UTERINE FIBROIDS, MYOMECTOMY - MULTIPLE SEGMENTS OF LEIOMYOMA. BP 112/67 (BP Location: Left arm, Patient Position: Sitting, BP Cuff Size: Adult long) Pulse 89 Wt 158 lb (71.7 kg) BMI 27.12 kg/m? Physical Exam Vitals reviewed. Constitutional: General: She is not in acute distress. Appearance: Normal appearance. She is not ill-appearing or toxic-appearing. HENT: Head: Normocephalic and atraumatic. Pulmonary: Effort: Pulmonary effort is normal. No respiratory distress. Abdominal: Palpations: Abdomen is soft. Comments: Incisions c/d/i Neurological: Mental Status: She is alert. Mental status is at baseline. Psychiatric: Mood and Affect: Mood normal. Behavior: Behavior normal. Judgment: Judgment normal. Assessment: Post op Fibroids Endometriosis Plan: Path and pics reviewed, benign. Meeting milestones and doing well. Precautions reviewed. All questions and concerns answered. Can follow up with Dr. Chisholm in [facility] for future fertility planning. Welcome to return to the office should she have any concerns. Voiced understanding and is appreciative for all the care she has received. [facility] 36on 11-05-2023 36 S: Patient spoke jory h [facility] nurse regarding spotting s/p myomectomy. B: Onset of symptoms/concern Patient had surgery 2 weeks ago. States that she lifted more than she should have yesterday. Today symptoms began. She has a post op visit tomorrow morning. A: She noticed spotting today. She reports a scant amount of light pink spotting when wiping and some on the pad. She reports some mild cramping. Denies fever. R: Home care advice reviewed with patient. Patient understands care advice. No further needs at this time. Patient instructed to call back with new or worsening symptoms. Reason for Disposition [1] MILD bleeding or SPOTTING AND [2] after procedure (e.g., biopsy) or pelvic examination (e.g., pap smear) AND [3] < 7 days Protocols used: Vaginal Bleeding - [id number]-SP Normal [facility] 36on 11-04-2023 36 Called patient back, not taking Oxycodone and can step on gas and break pedals quickly. Okay to drive. Will stop as needed and walk around. Doing well otherwise. Normal [facility] 36 Patient is post-op, surgery on 10-23-23, asking if she is safe to drive on a 2-day trip, she will be the one driving. Please advise. [facility] ABO and Rh group Confirm Nom (Bld)on 10-23-2023 ABO group Nom (Bld) [facility]RBC) Negative [facility] BLOOD TYPE AND SCREEN GELon 10-23-2023 ABO GROUPING A Normal [facility] Comment on above: Order Comment: HOLD. Specimen is valid for 3 days - nurse to verify valid specimen Performed By: #### L [id number] ####Log Rafter: ALISE SWIFT ([id number])[facility] BLOOD [facility] ([address] RH TYPE IN BLOOD Negative [facility] Comment on above: Order Comment: HOLD. Specimen is valid for 3 days - nurse to verify valid specimen Performed By: #### L [id number] ####Log Rafter: ALISE SWIFT ([id number])[facility] BLOOD [facility] ([address] Blood type and Crossmatch pa mami (Bld)on 10-23-2023 ABO group Nom (Bld) A [facility] Blood group antibody screen GEL Ql Negative [facility] OncoEthix D Ag Ql (RBC) Negative [facility] CBC (HEMOGRAM)on 10-23-2023 Erythrocyte distribution width (RBC) [Ratio] 13.3 % Normal 11.5-15.0 [facility] Comment on above: Performed By: #### L [id number] #### Log Rafter: ALISE SWIFT ([id number]) [facility] ([facility]) [address] [place] [address] Hematocrit (Bld) [Volume fraction] 37.2 % Normal 35.0-47.0 [facility] Comment on above: Performed By: #### L [id number] #### Log Rafter: ALISE SWIFT ([id number]) [facility] ([facility]) [address] [place] [address] Hemoglobin (Bld) [Mass/Vol] 12.6 g/dL Normal 11.7-16.0 [facility] Comment on above: Performed By: #### L [id number] #### Log Rafter: ALISE SWIFT ([id number]) [facility] ([facility]) [address] [place] [address] MCH (RBC) [Entitic mass] 29.5 pg Normal 26.0-34.0 [facility] Comment on above: Performed By: #### L [id number] #### Log Rafter: ALISE SWIFT ([id number]) [facility] ([facility]) [address] [place] [address] MCHC 33.9 % Normal 30.5-36.0 [facility] Comment on above: Performed By: #### L [id number] #### Log Rafter: ALISE SWIFT ([id number]) [facility] ([facility]) [address] [place] [address] MCV (RBC) [Entitic vol] 87.1 fL Normal 77.0-99.0 [facility] Comment on above: Performed By: #### L [id number] #### Log Rafter: ALISE SWIFT ([id number]) [facility] ([facility]) [address] [place] [address] Platelet mean volume (Bld) [Entitic vol] 10.7 fL Normal 9.0-12.7 [facility] Comment on above: Performed By: #### L [id number] #### Log Rafter: ALISE SWIFT ([id number]) [facility] ([facility]) [address] [place] [address] Platelets (Bld) [#/Vol] 297 10*3/uL Normal 140-440 [facility] Comment on above: Performed By: #### L [id number] #### Log Rafter: ALISE SWIFT ([id number]) [facility] ([facility]) [address] [place] [address] RBC (Bld) [#/Vol] 4.27 10*6/uL Normal 3.80-5.20 [facility] Comment on above: Performed By: #### L [id number] #### Log Rafter: ALISE SWIFT ([id number]) [facility] ([facility]) [address] [place] [address] WBC (Bld) [#/Vol] 5.9 10*3/uL Normal 3.6-10.7 [facility] Comment on above: Performed By: #### L [id number] #### Log Rafter: ALISE SWIFT ([id number]) [facility] ([facility]) [address] [place] [address] CBC panel Auto (Bld)on 10-23 Erythrocyte distribution width (RBC) [Ratio] 13.3 % 11.5 - 15.0 % [facility] Hematocrit (Bld) [Volume fraction] 37.2 % 35.0 - 47.0 % [facility] Hemoglobin (Bld) [Mass/Vol] 12.6 g/dL 11.7 - 16.0 g/dL [facility] Interpretation and review of laboratory results Normal [facility] MCH (RBC) [Entitic mass] 29.5 pg 26.0 - 34.0 pg [facility] MCHC (RBC) [Mass/Vol] 33.9 % 30.5 - 36.0 % [facility] MCV (RBC) [Entitic vol] 87.1 fL 77.0 - 99.0 fL [facility] Platelet mean volume (Bld) [Entitic vol] 10.7 fL 9.0 - 12.7 fL [facility] Platelets (Bld) [#/Vol] 297 10*3/uL 140 - 440 10*3/uL [facility] RBC (Bld) [#/Vol] 4.27 10*6/uL 3.80 - 5.2 0 10*6/uL [facility] WBC (Bld) [#/Vol] 5.9 10*3/uL 3.6 - 10.7 10*3/uL [facility] HCG ( test) Ql (U)o n 10-23-2023 Beta HCG ( test) Ql (U) [id number] [facility] Interpretation and review of laboratory results Normal [facility] NEGATIVE QC Pass [facility] POSITIVE QC Pass [facility] Preg Test, Ur Negative Negative [facility] Radiology Study observation (narrative) [facility] Nursing Noteon 10-23-2023 Nursing Note Patient ambulated to bathroom and attempted to void, resident Dr. Rosales contacted and patient ok to be discharged prior to voiding. Normal [facility] Nursing Note Patients at bedside, discharge instructions reviewed at this time [facility] Op Noteon 10-23-2023 Op Note Operative Note Department of Obstetrics and Gynecology Patient: Coni Quintero : 1985 Date of Procedure: 10/23/23 Pre-operative Diagnosis: 37 y.o. female 1. Fibroids Post-operative Diagnosis: Same, endometriosis Procedure: Diagnostic hysteroscopy, Laparoscopic myomectomy, resection of endometriosis Surgeon: Dr. Sania Vila Post Form Remover(s): Dr. Ginny Rosales, Dr. Leigh Ann Schafer Anesthesia: General ET, TAP block Antibiotics: 2g Ancef Findings: Normal external genitalia. Grade 1 apical prolapse with small, nulliparous cervix. Hysteroscopy attempted and unable to be performed due to suspected obstruction from intracavity fibroid. Intraabdominal survey revealed normal stomach, gallbladder, and appendix. No adhesions noted. Small powder burn lesion overlying the left uterosacral ligament <1cm total surface area. Normal appearing bilateral fallopian tubes and ovaries. Uterus found to have a 3-4cm subserosal and intramural anterior fibroid, a 3cm pedunculated posterior fibroid, and a deeper, 2-3cm type 3 intramural fibroid abutting the endometrial cavity. Total IV fluids/Blood products: 1000 ml crystalloid Fluid Deficit: <200cc Urine Output: 800 ml Estimated blood loss: 25 ml Drains: Rodriguez catheter removed at end of procedure Specimens: 3 fibroids (<250g total), left uterosacral ligament Instrument and Sponge Count: Correct x 2 Complications: None Condition: Stable, transferred to post anesthesia recovery Procedure: The patient was brought to the operating room with running IV fluids. General anesthesia was administered without difficulty. The patient was placed in a dorsal lithotomy position with Yellofin stirrups. She was then prepped and draped in the usual sterile fashion. A surgical timeout was performed which correctly identified the patient and procedure. Two right angle retractors were placed in the vagina and the anterior lip of the cervix was grasped with a single tooth tenaculum. The cervix was dilated with Jeff dilators to accommodate the Myosure hysteroscope. An attempt was made to introduce the hysteroscope with direct visualization but we were unable to enter the intrauterine cavity due to likely obstruction from a fibroid. A rodriguez catheter was then placed, and clear urine was noted. Attention was then directed to the laparoscopic portion of the procedure. A 5 mm skin incision was made at Perez's point. A 5mm optical trocar was inserted at this location using direct visual entry. The pneumoperitoneum was created with CO2 gas to a pressure of 15 mmHg. The entry site was inspected and revealed no evidence of visceral or vascular injury. 5 mm accessory ports were placed in the left and right lower quadrants under direct visualization. Abdominal survey revealed the above findings. While visualizing the uterus laparoscopically, a 6cm Sarah uterine manipulator was placed. A 10mm bladed balloon trocar was inserted at the umbilicus under direct visualization. Attention was directed to the pelvis. The fibroids noted above were identified. 15cc dilute vasopressin (20u vasopressin in 100cc saline) was injected at the base of the anterior fibroid. The Harmonic was then used to make a transverse incision overlying the center of the fibroid to the level of the capsule. The harmonic and blunt dissection were used to remove the fibroid from the surrounding myometrium which was then placed in the posterior cul-de-sac for later removal. There was another 2-3cm fibroid found that was identified deeper and removed in a similar manner through the same hysterotomy. The endometrial cavity was not obviously entered during this dissection but the patient was given antibiotics intraoperatively prophylactically. This fibroid was also placed in the posterior cul-de-sac for later removal. A 11mm suprapubic incision was made with a scalpel. A 12mm bladed balloon trocar was then inserted at this site under direct visualization. 2-0 Stratafix suture was used to close the uterine defect in a running fashion in 2 layers. Hemostasis was achieved. The posterior pedunculated fibroid was then grasped and transected at the base using the Harmonic. The uterine defect was closed using 0 Monocryl with one [id number] suture and one interrupted suture. Hemostasis was ensured. There was a powder burn lesion consistent with endometriosis identified overlying the left uterosacral ligament. The peritoneum was grasped with [place] forceps and elevated. The harmonic was used to transect this area which was removed and sent to pathology for evaluation. At this point, the suprapubic incision was extended laterally 3cm to the level of the fascia. The trocar was removed and a GelPoint mini was inserted at this location. The fibroids were grasped and removed through this port then sent to pathology for evaluation. The GelPoint mini was removed. The uterus was palp (more content not included)... Normal [facility] PREPROCINSon 09-16-2023 PREPROCINS Medication List Accurate as of September 16, 2023 2:30 PM. Always use your most recent med list. b complex vitamins capsule Medication Adjustments for Surgery: Hold morning of surgery Glutamine 500 MG capsule Medication Adjustments for Surgery: Hold morning of surgery INTRINSI [id number] PO Medication Adjustments for Surgery: Hold morning of surgery L-Tyrosine 500 MG capsule Medication Adjustments for Surgery: Hold morning of surgery MAGNESIUM GLYCINATE PO Medication Adjustments for Surgery: Hold morning of surgery NON FORMULARY Medication Adjustments for Surgery: Hold morning of surgery NON FORMULARY Medication Adjustments for Surgery: Hold morning of surgery NON FORMULARY Medication Adjustments for Surgery: Hold morning of surgery NON FORMULARY Medication Adjustments for Surgery: Hold morning of surgery [facility] PO Notes to patient: Stop Heri's Wort 5 days prior to surgery. Take last dose 10/20/2023 Additional Instructions: DREDGE PUMPER AND PARKING IN THE MAIN DECK ARE FREE DAY OF SURGERY. PARKING IN THE DECK-- AFTER PARKING TAKE THE ELEVATOR TO LEVEL ONE AND TAKE THE BRIDGE TO THE HOSPITAL. GO TO THE RIGHT AND GO AROUND THE CORNER TO THE SAME DAY SURGERY DESK AND CHECK IN THERE. IF GOING IN THE MAIN ENTRANCE-- TURN LEFT AND GO DOWN THE CRESPO TO THE H ELEVATORS AND TAKE THEM TO ONE, LEFT OFF THE ELEVATOR AND GO AROUND TO THE SAME DAY DESK AND CHECK IN. You may take your prescription pain medication. You may take Tylenol for pain. NO Motrin, ibuprofen or Advil for 24 hours prior to surgery or longer if instructed by your surgeon. NO Aleve or Naprosyn for 5 days prior to surgery or longer if instructed by your surgeon. IF YOU TAKE BLOOD THINNERS OR ASPIRIN: no aspirin for 5 days prior to surgery. Follow any instructions given to you by Dr. Vila. Shower with an antibacterial soap such as Dial or Safeguard the morning of surgery before coming to the hospital. No makeup, lotion, powder, deodorant or body spays. No hair products. Remove all jewelry and leave it at home. Wear loose comfortable clothing to go home in. You may brush your teeth morning of surgery. Do not wear contacts day of surgery. No marijuana (THC), smoking or alcohol for 24 hours prior to surgery. Please arrange for a responsible adult to drive you home after your surgery and that there is a responsible adult with you for 24 hours post discharge. If you have specific questions, please call your surgeon. You will receive a call the day before your surgery to verify your arrival time and date. You will be asked to arrive at least two hours prior to your scheduled surgery time. Please bring your [facility] Surgical folder and medication list with you day of surgery. We encourage you to write down any questions you may have for the surgeon, anesthesiologist, or other members of the surgical team and bring it with you the day of surgery. Please bring photo ID and insurance information. Normal [facility] 36on 09-11-2023 36 SURGERY SCHEDULED ON 09/25/23 @ 8:30am WITH ARRIVAL TIME @ 6:30 am PAT SCHEDULED ON 09/16/23 @ 2:00 pm POST-OP APPT SCHEDULED ON 10/11/23 @ 2:00 pm PATIENT NOTIFIED AND PAMPHLET SENT via email [facility] Office Visiton 09-10-2023 Follow-up visit [id number] Alfonso Quintero 1985 F Date Provider Department Center 09/10/2023 [id number] VILA SHMG ACH PEL None Family History Problem Relation Age of Onset Heart defect Paternal Grandfather Heart defect Paternal Grandmother Breast cancer Maternal Grandmother Colon cancer Maternal Grandfather Family Status - Relation Status Age at Paternal Grandfather Paternal Grandmother Maternal Grandmother Maternal Grandfather Level of Service:20833 DE OFFICE/OUTPATIENT NEW LOW MDM 30 MINUTES Reason for Visit and Comments: New Patient [[id number]] Normal [facility] Progress Noteon 09-10-2023 Progress Note -We reviewed multipl e scenarios that we may encounter during surgery. Discussed would approach hysteroscopic myomectomy first. If I do believe the main type III fibroid would be mostly amendable to hysteroscopic resection and more like a type II fibroid at the time of surgery would proceed with hysteroscopic resection only, follow-up SIS in 2 weeks and potentially could need staged procedure or laparoscopic intervention if it had not resolved or if cavity was not normalized. Discussed alternatively if we perform hysteroscopy at the time of surgery and fibroid is mostly within the muscle, would perform laparoscopic myomectomy at this point in time. My concern is that this may be difficult to find is only approximately 2 cm. And we did review this together. Also reviewed that if we perform hysteroscopy during surgery and cavity is normal, would not proceed with myomectomy via either route We discussed the r/b/a of major surgery via laparoscopic myomectomy and reviewed the steps of the procedure in depth. Patient also understands the risk of infertility due to possible tubal damage or intrauterine scarring if the cavity if the endometrium is entered. We also discussed the remote risk of hysterectomy for life saving measure with life threatening bleeding or post operative pyometra. We reviewed future consultation with her OB or MFM provider for current recommendations and chances or uterine rupture. We discussed expectations for menstrual patterns post operatively. Per ACOG "Of those women who had a single leiomyoma, 27% had recurrent tumors and 11% required hysterectomy. Of those women who had multiple leiomyomas, 59% experienced recurrent tumors. Of the women in the multiple leiomyoma group, 26% required repeat myomectomy, hysterectomy, or both procedures. We discussed the remote risk of encountering a uterine sarcoma and current FDA numbers and the risk of upstaging that can occur by performing the surgery in a minimally invasive fashion. The patient understands that patient may need future surgery and/or radiation due to this. We also discussed the poor prognosis and 5 year survival if this were to occur. Also reviewed chance of future parasitic myoma. We discussed contained and uncontained morcellation are dependent on specimen size and reviewed contained tissue extraction with scalpel morcellation. Reviewed power morcellation and pertinent FDA information. "The FDA currently estimates that a hidden uterine sarcoma may be present in approximately 1 in 225 to 1 in 580 women undergoing surgery for uterine fibroids based on recent publications. The FDA also estimates that a leiomyosarcoma (a specific type of uterine sarcoma) may be present in approximately 1 in 495 to 1 in 1100 women undergoing surgery for uterine fibroids based on recent studies." Patient consents specifically to contained morcellation. The patient was allowed to freely ask questions, expressed a good understanding of all of the above risks, understood and declined alternatives to surgical management and wishes to proceed with the procedure. [facility] surgical handout provided. We discussed the risks of surgery including, but not limited to: [x] Bleeding, infection, visceral or major vascular injury, transfusion, additional surgery related to the complication [x] Serious injury necessitating ostomy creation creation for bowel or urinary tract [x] Possibility of delayed surgical injury (such as in cases of bowel or bladder), prolonged catheterization [x] Anesthetic complication, cardiovascular risks including VTE, neurologic compromise/neuropathy [x] Unexpected findings which may require different or additional procedures [x] Failure of the procedure to achieve the desired result [x] For endoscopic procedures, the possibility of conversion to open surgery, need for re-operation or rehospitalization [x] The remote possibility of [x] Pain control and risks of narcotic medications [x] Recovery period and post-op expectations All questions asked and answered. Patient is able to correctly repeat the pertinent facts and indicates understanding of these issues and agrees with the plan. Plan: Hysteroscopic myomectomy, possible laparoscopic myomectomy [facility] Progress Note Coni Quintero 09/10/2023 37 y.o. Chief Complaint Patient presents with New Patient Patient's last menstrual period was 08/20/2023. HPI: Coni Quintero is a 37 y.o. female presents for evaluation of fibroids as referral from Dr. Chisholm. She reports she has some pelvic pain and dyspareunia. Does have very cramping and painful periods. She has changed her diet significantly in the last year and this really helps. She has three small fibroids. One type 3 fibroid that would likely need laparoscopic resection, although small. OB History Para Term AB Living 0 0 0 0 0 0 SAB IAB Ectopic Multiple Live Births 0 0 0 0 0 History reviewed. No pertinent past medical history. History reviewed. No pertinent surgical history. Family History Problem Relation Name Age of Onset Heart defect Paternal Grandfather Heart defect Paternal Grandmother Breast cancer Maternal Grandmother Colon cancer Maternal Grandfather MEDICATIONS: No current outpatient medications on file. No current facility-administered medications for this visit. ALLERGIES: Allergies as of 09/10/2023 (No Known Allergies) Review of Systems: Review of Systems Genitourinary: Positive for menstrual problem and pelvic pain. Physical Exam: BP 120/74 (BP Location: Left arm, Patient Position: Sitting, BP Cuff Size: Adult) Pulse 89 Wt 74.4 kg (164 lb) LMP 08/20/2023 Physical Exam Constitutional: Appearance: Normal appearance. HENT: Head: Normocephalic and atraumatic. Genitourinary: General: Normal vulva. Comments: Normal-appearing cervix on speculum exam on bimanual exam normal posterior cul-de-sac no uterosacral ligament nodularity uterus is smooth small anteverted and mobile nontender. No adnexal masses Neurological: Mental Status: She is alert and oriented to person, place, and time. Psychiatric: Behavior: Behavior normal. ASSESSMENT& PLAN: Fibroids -We reviewed multiple scenarios that we may encounter during surgery. Discussed would approach hysteroscopic myomectomy first. If I do believe the main type III fibroid would be mostly amendable to hysteroscopic resection and more like a type II fibroid at the time of surgery would proceed with hysteroscopic resection only, follow-up SIS in 2 weeks and potentially could need staged procedure or laparoscopic intervention if it had not resolved or if cavity was not normalized. Discussed alternatively if we perform hysteroscopy at the time of surgery and fibroid is mostly within the muscle, would perform laparoscopic myomectomy at this point in time. My concern is that this may be difficult to find is only approximately 2 cm. And we did review this together. Also reviewed that if we perform hysteroscopy during surgery and cavity is normal, would not proceed with myomectomy via either route We discussed the r/b/a of major surgery via laparoscopic myomectomy and reviewed the steps of the procedure in depth. Patient also understands the risk of infertility due to possible tubal damage or intrauterine scarring if the cavity if the endometrium is entered. We also discussed the remote risk of hysterectomy for life saving measure with life threatening bleeding or post operative pyometra. We reviewed future consultation with her OB or MFM provider for current recommendations and chances or uterine rupture. We discussed expectations for menstrual patterns post operatively. Per ACOG "Of those women who had a single leiomyoma, 27% had recurrent tumors and 11% required hysterectomy. Of those women who had multiple leiomyomas, 59% experienced recurrent tumors. Of the women in the multiple leiomyoma group, 26% required repeat myomectomy, hysterectomy, or both procedures. We discussed the remote risk of encountering a uterine sarcoma and current FDA numbers and the risk of upstaging that can occur by performing the surgery in a minimally invasive fashion. The patient understands that patient may need future surgery and/or radiation due to this. We also discussed the poor prognosis and 5 year survival if this were to occur. Also reviewed chance of future parasitic myoma. We discussed contained and uncontained morcellation are dependent on specimen size and reviewed contained tissue extraction with scalpel morcellation. Reviewed power morcellation and pertinent FDA information. "The FDA currently estimates that a hidden uterine sarcoma may be present in approximately 1 in 225 to 1 in 580 women undergoing surgery for uterine fibroids based on recent publications. The FDA also estimates that a leiomyosarcoma (a specific type of uterine sarcoma) may be present in approximately 1 in 495 to 1 in 1100 women undergoing surgery for uterine fibroids based on recent studies." Patient consents specifically to contained morcellation. The patient was allowed to freely ask questions, expressed a good understanding of all of the above r (more content not included)... Normal [facility] Laboratory - Chemistry and C hemistry - challengeOrdered By: Elmer Darnell on 08-06-2023 HCG ( test) Ql (U) Negative [facility] Comment on above: Very dilute urine sp ecimens, as indicated by a low specificgravity, may not contain associate financial representative levels of hCG. If is still suspected, a first morning urinespecimen should be collected 48 hours later and tested. Absolute lymphocyte countOrd ered By: Aldair Maurice on 07-17-2023 Lymphocytes Auto (Unsp spec) [#/Vol] 2.13 10*3/uL 0.83-4.51 [facility] Basophil percentageOrdered B y: Aldair Maurice on 07-17-2023 Basophils/100 WBC (Bld) 0.4 % 0-1 [facility] Chloride [Moles/Vol] 109 mmol/L 98-107 [facility] Eosinophils/100 WBC (Bld) 0.7 % 0-5 [facility] Glucose [Mass/Vol] 117 mg/dL 74-106 [facility] Comment on above: Fasting Glucose resu lt from 100 to 125 mg/dL suggests IMPAIRED HOMEOSTASIS per A.D.A. criteria. Neutrophils (Bld) [#/Vol] 5.6 10*3/uL 2.0-7.7 [facility] Neutrophils/100 WBC (Bld) 67.3 % 47-70 [facility] Potassium [Moles/Vol] 3.9 mmol/L 3.5-5.1 [facility] Sodium [Moles/Vol] 138 mmol/L 136-145 [facility] WBC (Bld) [#/Vol] 8.3 10*3/uL 4.4-11.0 [facility] Beta hCG serum qualOrdered B y: Aldair Maurice on 07-17-2023 Beta HCG ( test) Ql Negative [facility] Blood erythrocytes count (nu mber/volume)Ordered By: Aldair Maurice on 07-17-2023 RBC (Bld) [#/Vol] 4.32 10*6/uL 4.2-5.[address] [facility] Blood hemoglobin measurement (mass/volume)Ordered By: Aldair Maurice on 07-17-2023 Hemoglobin (Bld) [Mass/Vol] 12.8 g/dL 12.0-15.0 [facility] Blood lymphocytes/100 leukoc ytesOrdered By: Aldair Maurice on 07-17-2023 Lymphocytes/100 WBC (Bld) 25.6 % 19-41 [facility] Blood monocytes/100 leukocyt esOrdered By: Aldair Maurice on 07-17-2023 Monocytes/100 WBC (Bld) 5.6 % 0-10 [facility] Blood platelet mean volumeOr dered By: Aldair Maurice on 07-17-2023 Platelet mean volume (Bld) [Entitic vol] 10.5 fL 6.2-12.0 [facility] Determination of erythrocyte mean corpuscular volume (MCV)Ordered By: Aldair Maurice on 07-17-2023 MCV (RBC) [Entitic vol] 91.0 fL 81-99 [facility] Hematocrit Auto (Bld) [Volum e fraction]Ordered By: Aldair Maurice on 07-17-2023 Hematocrit (Bld) [Volume fraction] 39.3 % 37-47 [facility] Laboratory - Chemistry and C hemistry - challengeOrdered By: Aldair Maurice on 07-17-2023 CO2 [Moles/Vol] 24.0 mmol/L 21.0-32.0 [facility] Urea nitrogen/Creatinine [Mass ratio] 16.5 mg/mg 10-20 [facility] Laboratory - Hematology and Cell countsOrdered By: Aldair Maurice on 07-17-2023 Erythrocyte distribution width (RBC) [Entitic vol] 45.3 fL 35.1-43.9 [facility] Erythrocyte distribution width (RBC) [Ratio] 13.4 % 11.6-14.6 [facility] Immature granulocytes/100 WBC (Bld) 0.400 % 0.0-0.9 [facility] Comment on above: IG% - Immature Granu locytes (promyelocytes, myelocytes and metamyelocytes) > 1% indicates that a LEFT SHIFT is Present. MCH (RBC) [Entitic mass] 29.6 pg 27.0-32.0 [facility] Nucleated RBC/100 WBC (Bld) [Ratio] 0 % 0-5 [facility] MCHC Auto (RBC) [Mass/Vol]Or dered By: Aldair Maurice on 07-17-2023 MCHC (RBC) [Mass/Vol] 32.6 g/dL 32-36 [facility] No Panel InformationOrdered By: Aldair Maurice on 07-17-2023 Estimated Creatinine Clearance Calc 91.11 ml/min [facility] Estimated GFR (MDRD) Amer 116 mL/min >60 [facility] Comment on above: GFR Calc Estimated GFR (MDRD) Non-Af Amer 96 mL/min >60 [facility] Comment on above: Non- GFR Calc Platelets bldOrdered By: Cassius Maurice on 07-17-2023 Platelets (Bld) [#/Vol] 329 10*3/uL 150-450 [facility] Serum or plasma calcium carolyn urement (mass/volume)Ordered By: Aldair Maurice on 07-17-2023 Calcium [Mass/Vol] 8.9 mg/dL 8.5-10.1 [facility] Serum or plasma creatinine m easurement (mass/volume)Ordered By: Aldair Maurice on 07-17-2023 Creatinine [Mass/Vol] 0.73 mg/dL 0.55-1.02 [facility] Comment on above: The validity of the calculated GFR & GFRAA in patients over 70 years has not been determined. Clinical correlation is essential. Serum or plasma urea nitroge n measurement (mass/volume)Ordered By: Aldair Maurice on 07-17-2023 Urea nitrogen [Mass/Vol] 12 mg/dL 7-18 [facility] Thin prep Papanicolaou smear with manual screeningOrdered By: Aldair Maurice on 07-17-2023 Thin prep Papanicolaou smear with manual screening 5 5-15 [facility] No Panel InformationOrdered By: eVronica Gamboa on 07-01-2023 Miscellaneous Test See comment [facility] Comment on above: Sent directly to [facility] per ordering physician. Serum or plasma prolactin me asurement (mass/volume)Ordered By: Veronica Gamboa on 07-01-2023 Prolactin [Mass/Vol] 9.6 ng/mL [facility] Comment on above: NORMAL REFERENCE RAN GES FEMALE NON- 2.2 - 30.3 ng/mL 8.1 - 347.6 ng/mL POST-MENOPAUSAL 0.7 - 31.5 ng/mL MALE 2.5 - 17.4 ng/mL Cervical or vagninal specime n microscopic examination by cytology stain (reported asOrdered By: Veronica Gamboa on 06-12-2023 Cytology report Cyto stain Doc (Cvx/Vag) Comment . [facility] Comment on above: The Pap smear is a s creening test designed to aid in thedetection of premalignant and malignant conditions of theuterine cervix. It is not a diagnostic procedure andshould not be used as the sole means of detecting cervicalcancer. Both false-positive and false-negative reports dooccur. Detection in cervical specim en of any of human papilloma virus (HPV) 16, 18, 31, 33,Ordered By: Veronica Gamboa on 06-12-2023 HPV 16+18+31+33+35+39+45+ 51+52+56+58+59+66+68 DNA Probe+sig amp Ql (Cvx) Negative Negative [facility] Comment on above: This nucleic acid am plification test detects fourteen high- risk HPV types (16,18,31,33,35,39,45,51,52,56,58,59,66,68)without differentiation. Laboratory - CytologyOrdered By: Veronica Gamboa on 06-12-2023 Hydrographer Cyto stain Nom (Cvx/Vag) [ID] Comment . [facility] Comment on above: Clari Jean, Cytot echnologist (ASCP) Laboratory - Miscellaneous t estsOrdered By: Veronica Gamboa on 06-12-2023 Service comment (Unsp spec) [Interp] Comment . [facility] Comment on above: This liquid based Th inPrep(R) pap test was screened withthe use of an image guided system. Service comment (Unsp spec) [Interp] . . [facility] Liquid-based cerv Pap + CT/G C by DANIELLA w reflex to high-risk HPV for ASCUSOrdered By: Veronica Gamboa on 06-12-2023 Cytology report Cyto stain.thin prep Doc (Cvx/Vag) Comment . [facility] Comment on above: Criteria not met, HP V Genotype not performed.Performed at: [facility] - [facility] [id number] Director: Diana De Jesus MD, Phone: [phone] at: = - [facility] [address] [id number] Director: Diana De Jesus MD, Phone: [phone] No Panel InformationOrdered By: Veronica Gamboa on 06-12-2023 Pathology report final diagnosis Narrative Comment . [facility] Comment on above: NEGATIVE FOR INTRAEP ITHELIAL LESION OR MALIGNANCY. Absolute lymphocyte countOrd ered By: Kellee Kinney on 04-12-2023 Lymphocytes Auto (Unsp spec) [#/Vol] 1.91 10*3/uL 0.83-4.51 [facility] Basophil percentageOrdered B y: Kellee Kinney on 04-12-2023 Basophils/100 WBC (Bld) 0.3 % 0-1 [facility] Bilirubin [Mass/Vol] 0.30 mg/dL 0.20-1.00 [facility] Comment on above: For patients on eltr ombopag therapy, use of Dimension [place] TBIL is not recommended. Chloride [Moles/Vol] 111 mmol/L 98-107 [facility] Cholesterol [Mass/Vol] 189 mg/dL <200 [facility] Comment on above: <200 mg/dL Desirable 200-240 mg/dL Borderline >240 mg/dL High Risk Eosinophils/100 WBC (Bld) 1.2 % 0-5 [facility] Glucose [Mass/Vol] 107 mg/dL 74-106 [facility] Comment on above: Fasting Glucose resu lt from 100 to 125 mg/dL suggests IMPAIRED HOMEOSTASIS per A.D.A. criteria. Neutrophils (Bld) [#/Vol] 4.0 10*3/uL 2.0-7.7 [facility] Neutrophils/100 WBC (Bld) 61.5 % 47-70 [facility] Potassium [Moles/Vol] 3.9 mmol/L 3.5-5.1 [facility] Protein [Mass/Vol] 7.2 g/dL 6.4-8.2 [facility] Sodium [Moles/Vol] 138 mmol/L 136-145 [facility] Triglyceride [Mass/Vol] 61 mg/dL <199 [facility] Comment on above: The drugs N-Acetylcy steine and Metamizole may falsely depress this assay.Serum Triglycerides Reference Interval Normal <150 mg/dL Borderline high 150 - 199 mg/dL High 200 - 499 mg/dL Very High > or = 500 mg/dL WBC (Bld) [#/Vol] 6.5 10*3/uL 4.4-11.0 [facility] Blood erythrocytes count (nu mber/volume)Ordered By: Kellee Kinney on 04-12-2023 RBC (Bld) [#/Vol] 4.34 10*6/uL 4.2-5.[address] [facility] Blood hemoglobin measurement (mass/volume)Ordered By: Kellee Kinney on 04-12-2023 Hemoglobin (Bld) [Mass/Vol] 12.9 g/dL 12.0-15.0 [facility] Blood lymphocytes/100 leukoc ytesOrdered By: Kellee Kinney on 04-12-2023 Lymphocytes/100 WBC (Bld) 29.4 % 19-41 [facility] Blood monocytes/100 leukocyt esOrdered By: Kellee Kinney on 04-12-2023 Monocytes/100 WBC (Bld) 7.4 % 0-10 [facility] Blood platelet mean volumeOr dered By: Kellee Kinney on 04-12-2023 Platelet mean volume (Bld) [Entitic vol] 10.7 fL 6.2-12.0 [facility] Determination of erythrocyte mean corpuscular volume (MCV)Ordered By: Kellee Kinney on 04-12-2023 MCV (RBC) [Entitic vol] 91.0 fL 81-99 [facility] Hematocrit Auto (Bld) [Volum e fraction]Ordered By: Kellee Kinney on 04-12-2023 Hematocrit (Bld) [Volume fraction] 39.5 % 37-47 [facility] Iron measurement (mass/mass) Ordered By: Kellee Kinney on 04-12-2023 Iron (Unsp spec) [Mass/Mass] 117 ug/dL 50-170 [facility] Laboratory - Chemistry and C hemistry - challengeOrdered By: Kellee Kinney on 04-12-2023 ALP [Catalytic activity/Vol] 52 U/L 45-117 [facility] ALT [Catalytic activity/Vol] 25 U/L 13-56 [facility] CO2 [Moles/Vol] 26.0 mmol/L 21.0-32.0 [facility] Globulin (S) [Mass/Vol] 3.4 g/dL 2.2-4.2 [facility] Urea nitrogen/Creatinine [Mass ratio] 16.3 mg/mg 10-20 [facility] Laboratory - Hematology and Cell countsOrdered By: Kellee Kinney on 04-12-2023 Erythrocyte distribution width (RBC) [Entitic vol] 45.0 fL 35.1-43.9 [facility] Erythrocyte distribution width (RBC) [Ratio] 13.3 % 11.6-14.6 [facility] Immature granulocytes/100 WBC (Bld) 0.200 % 0.0-0.9 [facility] Comment on above: IG% - Immature Granu locytes (promyelocytes, myelocytes and metamyelocytes) > 1% indicates that a LEFT SHIFT is Present. MCH (RBC) [Entitic mass] 29.7 pg 27.0-32.0 [facility] Nucleated RBC/100 WBC (Bld) [Ratio] 0 % 0-5 [facility] MCHC Auto (RBC) [Mass/Vol]Or dered By: Kellee Kinney on 04-12-2023 MCHC (RBC) [Mass/Vol] 32.7 g/dL 32-36 [facility] No Panel InformationOrdered By: Kellee Kinney on 04-12-2023 Estimated GFR (MDRD) Amer 141 mL/min >60 [facility] Comment on above: GFR Calc Estimated GFR (MDRD) Non-Af Amer 117 mL/min >60 [facility] Comment on above: Non- GFR Calc Thyroid Stimulating Hormone (TSH) 1.31 uIU/mL 0.358-3.74 [facility] Total Iron Binding Capacity 313 ug/dL 250-450 [facility] Platelets bldOrdered By: Mary Kinney on 04-12-2023 Platelets (Bld) [#/Vol] 280 10*3/uL 150-450 [facility] Serum or plasma albumin carolyn urement (mass/volume)Ordered By: Kellee Kinney on 04-12-2023 Albumin [Mass/Vol] 3.8 g/dL 3.2-5.0 [facility] Serum or plasma albumin/glob ulin mass ratioOrdered By: Kellee Kinney on 04-12-2023 Albumin/Globulin [Mass ratio] 1.1 {ratio} 0.9-2.4 [facility] Serum or plasma calcium carolyn urement (mass/volume)Ordered By: Kellee Kinney on 04-12-2023 Calcium [Mass/Vol] 8.5 mg/dL 8.5-10.1 [facility] Serum or plasma cholesterol in HDL measurement (mass/volume)Ordered By: Kellee Kinney on 04-12-2023 Cholesterol in HDL [Mass/Vol] 63 mg/dL >40 [facility] Comment on above: The drugs N-Acetylcy steine and Metamizole may falsely depress this assay. Reference Range HDL <40 mg/dL Low HDL Cholesterol HDL >or= 60 mg/dL High HDL Cholesterol Serum or plasma cholesterol in VLDL measurement (mass/volume)Ordered By: Kellee Kinney on 04-12-2023 Cholesterol in VLDL [Mass/Vol] 12 mg/dL 5-40 [facility] Serum or plasma creatinine m easurement (mass/volume)Ordered By: Kellee Kinney on 04-12-2023 Creatinine [Mass/Vol] 0.61 mg/dL 0.55-1.02 [facility] Comment on above: The validity of the calculated GFR & GFRAA in patients over 70 years has not been determined. Clinical correlation is essential. Serum or plasma ferritin keila surement (mass/volume)Ordered By: Kellee Kinney on 04-12-2023 Ferritin [Mass/Vol] 16 ng/mL 8-[address] [facility] Serum or plasma low density lipoprotein (LDL) cholesterol measurement (mass/volume)Ordered By: Kellee Kinney on 04-12-2023 Cholesterol in LDL [Mass/Vol] 114 mg/dL 0-130 [facility] Serum or plasma urea nitroge n measurement (mass/volume)Ordered By: Kellee Kinney on 04-12-2023 Urea nitrogen [Mass/Vol] 10 mg/dL 7-18 [facility] Thin prep Papanicolaou smear with manual screeningOrdered By: Kellee Kinney on 04-12-2023 Thin prep Papanicolaou smear with manual screening 14 U/L 15-37 [facility] Thin prep Papanicolaou smear with manual screening 1 5-15 [facility] LABORATORYOrdered By: SYSTEM SYSTEM on 01-23-2023 25-hydroxyvitamin D3 [Mass/Vol] 76.8 ng/mL Invalid Interpretation Code AO ADM SS Albumin BCP dye [Mass/Vol] 4.4 G/dL Invalid Interpretation Code 3.5 - 5.0 G/dL AO ADM SS Albumin/Globulin [Mass ratio] 1.5 {ratio} Invalid Interpretation Code 1.1 - 2.5 ratio AO ADM SS ALP [Catalytic activity/Vol] 61 U/L Invalid Interpretation Code 40 - 135 U/L AO ADM SS ALT With P-5'-P [Catalytic activity/Vol] 24 U/L Invalid Interpretation Code 14 - 59 U/L AO ADM SS AST With P-5'-P [Catalytic activity/Vol] 15 U/L Invalid Interpretation Code 10 - 40 U/L AO ADM SS Bilirubin [Mass/Vol] 0.4 mg/dL Invalid Interpretation Code 0.2 - 1.0 mg/dL AO ADM SS Calcium [Mass/Vol] 8.9 mg/dL Invalid Interpretation Code 8.4 - 10.2 mg/dL AO ADM SS Chloride [Moles/Vol] 106 mmol/L Invalid Interpretation Code 98 - 107 mmol/L AO ADM SS CO2 [Moles/Vol] 25 mmol/L Invalid Interpretation Code 22 - 29 mmol/L AO ADM SS Cortisol [Mass/Vol] 10.7 ug/dL Invalid Interpretation Code AH ADM SS Creatinine [Mass/Vol] 0.67 mg/dL Invalid Interpretation Code 0.55 - 1.02 mg/dL AO ADM SS CRP High sensitivity method [Mass/Vol] 0.79 mg/L Invalid Interpretation Code 0.20 - 3.00 mg/L AH ADM SS DHEA-S [Mass/Vol] 289.85 ug/dL Invalid Interpretation Code 25.90 - 460.20 mcg/dL AH ADM SS Electrolyte Balance 11.0 mEq/L Invalid Interpretation Code 4.0 - 15.0 mEq/L AO ADM SS Ferritin [Mass/Vol] 32.0 ng/mL Invalid Interpretation Code 8.0 - 252.0 ng/mL AO ADM SS GFR/1.73 sq M.predicted among blacks MDRD (S/P/Bld) [Vol rate/Area] 120 ml/min/1.73sqm Invalid Interpretation Code AO Chemistry S GFR/1.73 sq M.predicted among non-blacks MDRD (S/P/Bld) [Vol rate/Area] 99 ml/min/1.73sqm Invalid Interpretation Code AO Chemistry S Globulin 3.0 G/dL Invalid Interpretation Code AO ADM SS Glucose [Mass/Vol] 92 mg/dL Invalid Interpretation Code 70 - 105 mg/dL AO ADM SS Homocysteine [Moles/Vol] 11.6 umol/L Invalid Interpretation Code 3.7 - 13.9 umol/l AH ADM SS Potassium [Moles/Vol] 3.8 mmol/L Invalid Interpretation Code 3.5 - 5.1 mmol/L AO ADM SS Protein [Mass/Vol] 7.4 G/dL Invalid Interpretation Code 6.4 - 8.2 G/dL AO ADM SS Sodium [Moles/Vol] 142 mmol/L Invalid Interpretation Code 136 - 145 mmol/L AO ADM SS Urea nitrogen [Mass/Vol] 12 mg/dL Invalid Interpretation Code 7 - 18 mg/dL AO ADM SS Urea nitrogen/Creatinine [Mass ratio] 18 ratio Invalid Interpretation Code 7 - 27 ratio AO ADM SS LABORATORYOrdered By: Jay Stephens on 01-23-2023 Basophil, Absolute 0.0 103/mcL Invalid Interpretation Code 0.0 - 0.2 10^3/mcL AO Workflow SS Basophils/100 WBC (Bld) 0.4 % Invalid Interpretation Code 0.0 - 2.5 % AO Workflow SS Eosinophil, Absolute 0.1 103/mcL Invalid Interpretation Code 0.0 - 0.4 10^3/mcL AO Workflow SS Eosinophils/100 WBC (Bld) 0.7 % Invalid Interpretation Code 0.0 - 7.0 % AO Workflow SS Erythrocyte distribution width (RBC) [Ratio] 13.7 % Invalid Interpretation Code 11.5 - 14.5 % AO Workflow SS Hematocrit (Bld) [Volume fraction] 40.6 % Invalid Interpretation Code 37.0 - 47.0 % AO Workflow SS Hemoglobin (Bld) [Mass/Vol] 13.8 G/dL Invalid Interpretation Code 12.0 - 16.0 G/dL AO Workflow SS Lymphocyte, Absolute 1.9 103/mcL Invalid Interpretation Code 0.8 - 3.9 10^3/mcL AO Workflow SS Lymphocytes/100 WBC (Bld) 23.5 % Invalid Interpretation Code 10.0 - 50.0 % AO Workflow SS MCH (RBC) [Entitic mass] 30.1 pg Invalid Interpretation Code 27.0 - 31.2 pg AO Workflow SS MCHC 34.0 G/dL Invalid Interpretation Code 33.0 - 37.0 G/dL AO Workflow SS MCV (RBC) [Entitic vol] 88.4 fL Invalid Interpretation Code 80.0 - 94.0 fL AO Workflow SS Monocyte, Absolute 0.5 103/mcL Invalid Interpretation Code 0.2 - 1.0 10^3/mcL AO Workflow SS Monocytes/100 WBC (Bld) 5.7 % Invalid Interpretation Code 1.7 - 13.0 % AO Workflow SS Neutrophil, Absolute 5.7 103/mcL Invalid Interpretation Code 2.9 - 6.2 10^3/mcL AO Workflow SS Neutrophils/100 WBC (Bld) 69.7 % Invalid Interpretation Code 37.0 - 80.0 % AO Workflow SS Platelet mean volume (Bld) [Entitic vol] 8.6 fL Invalid Interpretation Code 7.4 - 10.4 fL AO Workflow SS Platelets (Bld) [#/Vol] 327 103/mcL Invalid Interpretation Code 130 - 400 10^3/mcL AO Workflow SS RBC (Bld) [#/Vol] 4.59 106/mcL Invalid Interpretation Code 4.20 - 5.40 10^6/mcL AO Workflow SS WBC (Bld) [#/Vol] 8.2 103/mcL Invalid Interpretation Code 4.6 - 10.8 10^3/mcL AO Workflow SS LABORATORYOrdered By: Marichuy Pratt on 01-23-2023 Cholesterol [Mass/Vol] 210 mg/dL Invalid Interpretation Code 0 - 200 mg/dL AO ADM SS Cholesterol in HDL [Mass/Vol] 80 mg/dL Invalid Interpretation Code 40 - 60 mg/dL AO ADM SS Cholesterol in LDL [Mass/Vol] 119 mg/dL Invalid Interpretation Code 0 - 130 mg/dL AO ADM SS Triglyceride [Mass/Vol] 56 mg/dL Invalid Interpretation Code 0 - 150 mg/dL AO ADM SS ULTRASOUND PELVISon 10-17-19 ULTRASOUND PELVIS TRANSABDOMINAL PELVI C SONOGRAPHY WITH DOPPLER ANALYSIS, 10/17/2017 2:34 PM.CLINICAL HISTORY: PELVIC AND PERINEAL PAIN COMPARISON: Hysterosalpingogram, 04/02/2017.FINDINGS: The uterus measures 7.1 x 5.6 x 3.4 cm. 7 mm endometrial stripe. Nomyometrial mass identified.Right ovary measures 3.3 x 2.2 x 1.8 cm and the left measures 3.6 x 2.4 x 2.1cm. Both ovaries have normal color and spectral Doppler vascularity with theright resistive index measuring 0.67 and the left 0.69. No free fluid oradnexal mass.IMPRESSION:Normal exam. Normal [facility] PROGESTERONEon 04-18-2017 Progesterone 10.0 ng/mL Normal [facility] Comment on above: Result Comment: Foll icular phase 0.1 - 0.9 Luteal phase 1.8 - 23.9 Ovulation phase 0.1 - 12.0 First trimester 11.0 - 44.3 Second trimester 25.4 - 83.3 Third trimester 58.7 - 214.0 Postmenopausal 0.0 - 0.1 Performed By: #### P ROGEST ####Performed for [address] [address] PROGESTERONEon 04-03-2017 Progesterone 0.1 ng/mL Normal [facility] Comment on above: Result Comment: Foll icular phase 0.1 - 0.9 Luteal phase 1.8 - 23.9 Ovulation phase 0.1 - 12.0 First trimester 11.0 - 44.3 Second trimester 25.4 - 83.3 Third trimester 58.7 - 214.0 Postmenopausal 0.0 - 0.1 Performed By: #### P ROGEST ####Performed for [address] [address] SALPINGOGRAMon 04-02-2017 SALPINGOGRAM PROCEDURE: SALPINGOG NAGA, 04/02/2017, 8:45 AMCLINICAL INDICATIONS: Primary female infertility, LMP 03/25/2017.COMPARISON: Pelvic sonogram 10/17/2010.TECHNIQUE: Fluoroscopic hysterosalpingogram performed by Dr. Landeros.Fluoroscopy: 0.9 minutes4 fluoroscopic images.The procedure was discussed at length with the patient including risks,benefits, and alternatives. The patient's questions were answered and writtenconsent obtained. Time for pause and confirmation was performed.Female technologist present throughout the examination.Following appropriate positioning of the patient, the introitus was cleansed,and draped in usual sterile fashion. Limited manual pelvic examination was performed for cervix localization.Speculum was advanced. The cervix was cleansed with Betadine.5 [place] hysterosalpingogram catheter was advanced under fluoroscopic guidanceinto the cervical canal. Retention balloon inflated. Approximately 6 mL ofIsovue-300 was instilled into the uterine cavity. Focal uterine cavityabnormality is not evident. There is prompt filling of normal morphologyfallopian tubes bilaterally. There is spillage of contrast bilaterallyconfirming patency. Catheter and speculum were removed.Patient tolerated the entire procedure well without immediate complication. COMPLICATION: None.IMPRESSION:1. Successful fluoroscopic-guided hysterosalpingogram without complication.2. Uterus and fallopian tubes are normal in morphology.3. There is patency of fallopian tubes bilaterally. Normal [facility] TSH 3RD GENERATIONon 017 Thyroid stimulating hormone (TSH) 1.750 uIU/mL Normal 0.358-3.740 [facility] Comment on above: Performed By: #### 1 [id number] ####[place] [id number] [address]Medical Director - Sherry Mitchell [id number] THIN PREP with HPVon 017 [id number] . Normal [facility] Comment on above: Result Comment: Perf ormed at: [facility] Performed By: #### T PH ####Performed for [place] [id number] Negative Normal Negative [facility] Comment on above: Result Comment: This test detects fourteen high-risk HPV types (16/18/31/33/35/39/45/51/52/56/58/59/66/68) without differentiation.Performed at: =G Performed By: #### T PH ####Performed for [place] [address] Hydrographer (cervix/vaginal) Comment Normal [facility] Comment on above: Result Comment: Sunita Montejo, Mandolin Repairer (ASCP)Performed at: [facility] Performed By: #### T PH ####Performed for [place] [address] Cytology report (cervical/vaginal) Comment Normal [facility] Comment on above: Result Comment: This liquid based ThinPrep(R) pap test was screened with theuse of an image guided system.Performed at: [facility] Performed By: #### T PH ####Performed for [place] [address] Note: Comment Normal [facility] Comment on above: Result Comment: The Pap smear is a screening test designed to aid in the detection ofpremalignant and malignant conditions of the uterine cervix. It is not adiagnostic procedure and should not be used as the sole means of detectingcervical cancer. Both false-positive and false-negative reports do occur. .Performed at: [facility] Performed By: #### T PH ####Performed for [place] [address] Pathology narrative Comment Normal [facility] Comment on above: Result Comment: NEGA TIVE FOR INTRAEPITHELIAL LESION AND MALIGNANCY.THIS SPECIMEN WAS RESCREENED PART OF OUR PATIENT ADVOCATE PROGRAM.Performed at: [facility] Performed By: #### T PH ####Performed for [place] [address] QC reviewed by: Comment Normal [facility] Comment on above: Result Comment: Torri Herrera, Supervisory Mandolin Repairer (ASCP)Performed at: [facility] Performed By: #### T PH ####Performed for [place] [address] Statement of adequacy (cervix/vaginal) Comment Normal [facility] Comment on above: Result Comment: Sati sfactory for evaluation. Endocervical and/or squamous metaplasticcells (endocervical component) are present.Performed at: [facility] Performed By: #### T PH ####Performed for [place] [address] Vital Signs Date Time Vital Sign Value Performing Clinician Marquez cristina 11-06-2023 10:56-0400 Body mass index (BMI) [Ratio] 27.12 kg/m2 Ree Perry PA Work Phone: [facility] [employer] 11-06-2023 10:56-0400 Body weight 71.67 kg Ree Perry PA Work Phone: [facility] [employer] 11-06-2023 10:56-0400 Diastolic blood pressure 67 mm[Hg] Ree Perry PA Work Phone: [facility] [employer] 11-06-2023 10:56-0400 Heart rate 89 /min Ree Perry PA Work Phone: [facility] [employer] 11-06-2023 10:56-0400 Systolic blood pressure 112 mm[Hg] Ree Perry PA Work Phone: [facility] [employer] 10-23-2023 16:45-0500 Diastolic blood pressure 84 mm[Hg] Sania Vila MD Work Phone: [employer] 10-23-2023 16:45-0500 Heart rate 91 /min Sania Vila MD Work Phone: [employer] 10-23-2023 16:45-0500 SaO2% (BldA) [Mass fraction] 93 % Sania Vila MD Work Phone: [employer] 10-23-2023 16:45-0500 Systolic blood pressure 118 mm[Hg] Sania Vila MD Work Phone: [employer] 10-23-2023 15:00-0500 Body temperature 97 [degF] Sania Vila MD Work Phone: [employer] 10-23-2023 15:00-0500 Respiratory rate 16 /min Sania Vila MD Work Phone: [employer] 10-23-2023 11:22-0500 Body height 162.6 cm Sania Vila MD Work Phone: [employer] 10-23-2023 11:22-0500 Body mass index (BMI) [Ratio] 28.15 kg/m2 Sania Vila MD Work Phone: [employer] 10-23-2023 11:22-0500 Body weight 74.39 kg Sania Vila MD Work Phone: [employer] 09-10-2023 15:05-0500 Body weight 74.39 kg Sania Vila MD Work Phone: [employer] 09-10-2023 15:05-0500 Diastolic blood pressure 74 mm[Hg] Sania Vila MD Work Phone: [employer] 09-10-2023 15:05-0500 Heart rate 89 /min Sania Vila MD Work Phone: [employer] 09-10-2023 15:05-0500 Systolic blood pressure 120 mm[Hg] Sania Vila MD Work Phone: [employer] 08-06-2023 08:05-0500 Body temperature 97.8 [degF] MD Kellee Kinney Work Phone: [facility] 08-06-2023 08:05-0500 Diastolic blood pressure 66 mm[Hg] MD Kellee Kinney Work Phone: [facility] 08-06-2023 08:05-0500 Heart rate 72 /min MD Kellee Kinney Work Phone: [facility] 08-06-2023 08:05-0500 Respiratory rate 16 /min MD Kellee Kinney Work Phone: [facility] 08-06-2023 08:05-0500 SaO2% (BldA) [Mass fraction] 98 % MD Kellee Kinney Work Phone: [facility] 08-06-2023 08:05-0500 Systolic blood pressure 100 mm[Hg] MD Kellee Kinney Work Phone: [facility] 08-06-2023 06:52-0500 Body height 162.56 cm MD Kellee Kinney Work Phone: [facility] 08-06-2023 06:52-0500 Body mass index (BMI) [Ratio] 28.1 kg/m2 MD Kellee Kinney Work Phone: [facility] 08-06-2023 06:52-0500 Body weight 74.5 kg MD Kellee Kinney Work Phone: [facility] 07-17-2023 12:10-0500 Diastolic blood pressure 64 mm[Hg] MD Kellee Kinney Work Phone: [facility] 07-17-2023 12:10-0500 Heart rate 87 /min MD Kellee Kinney Work Phone: [facility] 07-17-2023 12:10-0500 Respiratory rate 16 /min MD Kellee Kinney Work Phone: [facility] 07-17-2023 12:10-0500 SaO2% (BldA) [Mass fraction] 98 % MD Chalon Toan Work Phone: [facility] 07-17-2023 12:10-0500 Systolic blood pressure 125 mm[Hg] MD Kellee Kinney Work Phone: [facility] 07-17-2023 09:50-0500 Body height 162.56 cm MD Kellee Kinney Work Phone: [facility] 07-17-2023 09:50-0500 Body mass index (BMI) [Ratio] 28.7 kg/m2 MD Kellee Kinney Work Phone: [facility] 07-17-2023 09:50-0500 Body temperature 97.2 [degF] MD Kellee Kinney Work Phone: [facility] 07-17-2023 09:50-0500 Body weight 75.8 kg MD Kellee Kinney Work Phone: [facility] 06-19-2023 13:48-0400 Body height 162.56 cm MD Kellee Kinney Work Phone: [facility] 06-19-2023 13:48-0400 Body mass index (BMI) [Ratio] 28.1 kg/m2 MD Kellee Kinney Work Phone: [facility] 06-19-2023 13:48-0400 Body temperature 98.2 [degF] MD Kellee Kinney Work Phone: [facility] 06-19-2023 13:48-0400 Body weight 74.38 kg MD Kellee Kinney Work Phone: [facility] 06-19-2023 13:48-0400 Diastolic blood pressure 82 mm[Hg] MD Kellee Kinney Work Phone: [facility] 06-19-2023 13:48-0400 Heart rate 92 /min MD Kellee Kinney Work Phone: [facility] 06-19-2023 13:48-0400 Respiratory rate 17 /min MD Kellee Kinney Work Phone: [facility] 06-19-2023 13:48-0400 SaO2% (BldA) [Mass fraction] 96 % MD Kellee Kinney Work Phone: [facility] 06-19-2023 13:48-0400 Systolic blood pressure 119 mm[Hg] MD Kellee Kinney Work Phone: [facility] 06-12-2023 10:12-0400 Body mass index (BMI) [Ratio] 28.2 kg/m2 MD Kellee Kinney Work Phone: [facility] 06-12-2023 10:12-0400 Body weight 74.61 kg MD Kellee Kinney Work Phone: [facility] 06-12-2023 10:12-0400 Diastolic blood pressure 76 mm[Hg] MD Kellee Kinney Work Phone: [facility] 06-12-2023 10:12-0400 Systolic blood pressure 118 mm[Hg] MD Kellee Kinney Work Phone: [facility] 05-01-2023 14:07-0400 Body mass index (BMI) [Ratio] 28.3 kg/m2 MD Kellee Kinney Work Phone: [facility] 05-01-2023 14:07-0400 Body weight 74.84 kg MD Kellee Kinney Work Phone: [facility] Encounters Encounter Date Encounter Type Care Provider Facility Start: 04-08-2025 End: 04-08-2025 ambulatory NONE PHYSICIAN Facility:[facility] Start: 04-08-2025 End: 04-08-2025 Patient encounter procedure MATT RODRÍGUEZ DC [facility] Start: 08-21-2024 End: 08-21-2024 ambulatory Kellee Kinney Facility:[facility] Start: 06-27-2024 End: 06-27-2024 ambulatory Veronica Gamboa NP Facility:[facility] Start: 02-12-2024 End: 02-12-2024 ambulatory MATT RODRÍGUEZ DC Facility:B Start: 02-12-2024 End: 02-12-2024 Patient encounter procedure MATT RODRÍGUEZ DC [facility] Start: 11-12-2023 Telephone encounter Sania bay MD Work Phone: [facility] Comment on above: other (Post-op [facility] ) Start: 11-06-2023 End: 11-06-2023 ambulatory REE VÁSQUEZ [facility] [employer] [facility] Start: 11-06-2023 End: 11-06-2023 Postop follow up visit related to original px Ree Vásquez PA Work Phone: [facility] Comment on above: Post-operative state (Primary Dx); Fibroids; Endometriosis Start: 11-05-2023 ambulatory Barbie Youssef RN [facility] Start: 11-05-2023 Patient encounter procedure Barbie Youssef RN [facility] Start: 11-04-2023 Telephone encounter Ree louis PA Work Phone: [facility] Comment on above: Post op question Start: 10-23-2023 End: 10-23-2023 ambulatory SANIA [employer] [facility] Start: 10-23-2023 End: 10-23-2023 Subsequent hospital visit by physician Sania Vila MD Work Phone: [facility] MA[facility] OR Comment on above: Acute postoperative pain (Primary Dx); Benign neoplasm of connective and other soft tissue, unspecified Start: 10-22-2023 ambulatory Sania Vila MD Work Phone: [facility] PRE PROCEDURE Start: 09-16-2023 End: 09-16-2023 ambulatory SANIA [employer] [facility] [employer] [facility] Start: 09-10-2023 End: 09-10-2023 [facility] Start: 09-10-2023 End: 09-10-2023 Office outpatient new 30 minutes Sania Vila MD Work Phone: [facility] Comment on above: Fibroids (Primary Dx ) Start: 08-06-2023 Non-patient / Non-visit MD Mary Kinney Work Phone: [facility] Start: 08-06-2023 End: 08-06-2023 Admission to same day surgery center MD Kellee Kinney Work Phone: [facility]-Endoscopy Work Phone: Start: 08-06-2023 End: 08-06-2023 ambulatory MD Kellee Kinney Work Phone: [facility] Work Phone: Start: 07-25-2023 End: 07-25-2023 Patient encounter procedure MD Kellee Kinney Work Phone: [facility] Work Phone: Start: 07-20-2023 End: 07-20-2023 ambulatory MD Kellee Kinney Work Phone: [facility] Work Phone: Start: 07-20-2023 End: 07-20-2023 Patient encounter procedure MD Kellee Kinney Work Phone: [facility] Work Phone: Start: 07-17-2023 End: 07-17-2023 Emergency department patient visit MD Kellee Kinney Work Phone: [facility]-Emergency Department Work Phone: Start: 07-01-2023 End: 07-01-2023 Patient encounter procedure MD Kellee Kinney Work Phone: [facility]-Laboratory, OP Pavilion Start: 06-27-2023 End: 06-27-2023 Patient encounter procedure MD Kellee Kinney Work Phone: [facility] Work Phone: Start: 06-21-2023 End: 06-21-2023 ambulatory MD Kellee Kinney Work Phone: [facility] Work Phone: Start: 06-21-2023 End: 06-21-2023 Patient encounter procedure MD Kellee Kinney Work Phone: [facility]-Outpatient Breast Imaging Work Phone: Start: 06-19-2023 End: 06-19-2023 Patient encounter procedure MD Kellee Kinney Work Phone: [facility] Work Phone: Start: 06-12-2023 End: 06-12-2023 Patient encounter procedure MD Kellee Kinney Work Phone: [facility]-Laboratory, Specimen Work Phone: Start: 06-12-2023 End: 06-12-2023 Discharged Recurring MD Kellee Kinney Work Phone: [facility]-Physical Therapy Work Phone: Start: 06-12-2023 End: 06-12-2023 Patient encounter procedure MD Kellee Kinney Work Phone: [facility] Work Phone: Start: 05-01-2023 End: 05-01-2023 Patient encounter procedure MD Kellee Kinney Work Phone: [facility] Work Phone: Start: 04-12-2023 End: 04-12-2023 ambulatory MD Kellee Kinney Work Phone: [facility] Work Phone: Start: 04-12-2023 End: 04-12-2023 Patient encounter procedure MD Kellee Kinney Work Phone: [facility] Radiology Start: 01-23-2023 End: 01-23-2023 Patient encounter procedure MATT RODRÍGUEZ DC [facility] Start: 05-07-2022 ambulatory [facility] Start: 10-17-2017 End: 10-18-2017 [facility] Start: 04-16-2017 End: 04-17-2017 [facility] Start: 04-02-2017 End: 04-03-2017 Ambulatory [facility] Facility:[facility] Start: 03-20-2017 End: 03-21-2017 [facility] Procedures Date Procedure Procedure Detail Performing Clinician Start: 10-23-2023 Antibody screen SANIA MANUEL Comment on above: Order Comment: HOLD. Specimen is valid for 3 days - nurse to verify valid specimen Performed By: #### L [id number] ####Log Rafter: ALISE SWIFT ([id number])[facility] ([address] Start: 10-23-2023 Urine test visual color cmprsn abdirizaks Zaid Meade MD Work Phone: Start: 10-23-2023 ABO and Rh group [Ty pe] in Blood by Confirmatory method Sania Vila MD Work Phone: Start: 10-23-2023 Blood count complete automated Sania Vila MD Work Phone: Start: 10-23-2023 Blood typing serologic abo Sania Vila MD Work Phone: Start: 08-06-2023 Colonoscopy MD Kellee Kinney Work Phone: Start: 07-20-2023 MRI of lumbar spine MD Kellee Kinney Work Phone: Start: 07-17-2023 Computed tomography of abdomen and pelvis with intravenous contrast MD Kellee Kinney Work Phone: Start: 06-21-2023 Screening mammography Twin Kinney Work Phone: Start: 05-01-2023 X-ray of lumbar spin e, two or three views MD Kellee Kinney Work Phone: Start: 04-12-2023 Radiography of sacrococcygeal spine MD Kellee Kinney Work Phone: Plan of Treatment Date Care Activity Detail Author Start: 2045 RSV Immunization age d 60 or older (1 - 1-dose 60+ series) RSV Immunization aged 60 or older (1 - 1-dose 60+ series) [facility] Start: 11-08-2035 Zoster Vaccines (1 of 2) Zoster Vacc maricruz (1 of 2) [facility] Start: 11-06-2023 End: 11-06-2023 Patient encounter procedure 11/06/2023 11:00 AM EDT Office Visit [facility] [address] [place] [address] Ree Vásquez PA [address] [facility] [address] [place], [place] [id number] [facility] Start: 10-23-2023 End: 10-23-2023 Admission to same day surgery center 10/23/2023 1:00 PM EST - 10/23/2023 3:30 PM EST Surgery [facility] MA[facility] OR [address] [place] [id number] Sania Vila MD [address] [facility] [address] [place], [place] [id number] HYSTEROSCOPIC MYOMECTOMY, POSSIBLE LAPAROSCOPIC MYOMECTOMY [91046 (CPT )] [facility] Comment on above: HYSTEROSCOPIC MYOMEC JASON, POSSIBLE LAPAROSCOPIC MYOMECTOMY [68059 (CPT )] Start: 10-23-2023 End: 10-23-2023 Anesthesia consultation 10/23/2023 1:00 PM EST Anesthesia Event [facility] [address] [place] [address] Sierra Jordan, BAIL AGENT [address] [place] [address] [facility] Start: 10-23-2023 End: 10-23-2023 Hysteroscopy removal leiomyomata HYSTEROSCOPY WITH REMOVAL LEIOMYOMATA Benign neoplasm of connective and other soft tissue, unspecified 10/23/2023 1:00 PM EST [facility] Operating [facility] Start: 10-23-2023 End: 10-23-2023 Laps myomectomy exc 1-4 myomas 250 gm/< LAPAROSCOPIC MYOMECTOMY Benign neoplasm of connective and other soft tissue, unspecified 10/23/2023 1:00 PM EST [facility] Operating [facility] Start: 10-23-2023 Subsequent hospital visit by physician 10/23/2023 1:00 PM EST Hospital Encounter [facility] OR [address] [place] [id number] Sania Vila MD [address] [place] [address] [address] [place] [address] [facility] Start: 08-06-2023 Patient discharge [facility] Start: 07-17-2023 [facility] Start: 06-12-2023 [facility] Phone: Start: 04-26-2023 Influenza vaccination Influenza Vacc ine (#1) [facility] Start: 11-30-2016 Hepatitis B Vaccines (2 of 3 - 19+ 3-dose series) Hepatitis B Vaccines (2 of 3 - 19+ 3-dose series) [facility] Start: 11-08-2015 Screening for malign ant neoplasm of cervix [facility] Start: 2006 Screening for malign ant neoplasm of cervix Pap Smear [facility] Start: 2004 DTaP/Tdap/Td Vaccine s (1 - Tdap) DTaP/Tdap/Td Vaccines (1 - Tdap) [facility] Start: 2004 Zoster Vaccines (1 of 2) Zoster Vacc maricruz (1 of 2) [facility] Start: 11-08-2003 Hepatitis C screening Hepatitis C Sc reening [facility] Start: 1998 Varicella vaccination Varicell a Vaccines (1 of 2 - 13+ 2-dose series) [facility] Start: 1997 Depression Screening Depression Scre ening [facility] Start: 11-08-1991 Pneumococcal Vaccine : Pediatrics (0 to 5 Years) and At-Risk Patients (6 to 64 Years) (1 of 2 - PCV) Pneumococcal Vaccine: Pediatrics (0 to 5 Years) and At-Risk Patients (6 to 64 Years) (1 of 2 - PCV) [facility] Start: 1990 COVID-19 Vaccine (#1) COVID-19 Vacci ne (#1) [facility] Start: 1986 MMR Vaccines (1 of 1 - Standard series) MMR Vaccines (1 of 1 - Standard series) [facility] Start: 1986 Varicella vaccination Varicell a Vaccines (1 of 2 - 2-dose childhood series) [facility] Start: 05-10-1986 COVID-19 Vaccine (#1) COVID-19 Vacci ne (#1) [facility] Start: 1985 HIV screening HIV Screening [facility] Colonoscopy [facility] MR Lumbar spine [facility] Patient Education GI Bleeding Ca uses and Tests [facility] Work Phone: Patient referral [facility] Work Phone: Tissue exam [facility] Work Phone: Comment on above: Release Upon Misti kauffman for 1 Occurrences starting 10/23/2023 [facility] Payers Date Payer Category Payer Private Health Insurance [id number] 2024 Self-pay [id number] 2021 Unknown [id number] 2021 Unknown [employer] [place] [employer] [id number] 2021-Present [address] [place] [address] Commercial [id number] 2015 Unknown [id number] 1985 Unknown [id number] 1985 Unknown [id number] Unknown [facility] PACKAGE PLAN [id number] Unknown [id number] Unknown [id number] Social History Date Type Detail Facility Tobacco smoking status [facility] Start: 1985 Sex Assigned At Female [facility] Start: 06-19-2023 End: 08-02-2023 Tobacco smoking status [facility]IS Unknown if ever smoked [facility] Start: 1985 Sex Assigned At Not on file [facility] Start: 09-16-2023 End: 11-06-2023 Gender identity Not on file [facility] Start: 09-16-2023 Tobacco smoking status OHIS Never smoked tobacco [facility] Start: 09-16-2023 Tobacco use and exposure Smokeless tobacco non-user [facility] Start: 09-16-2023 End: 11-06-2023 Alcohol intake Ex-drinker (finding) [facility] Start: 09-16-2023 End: 11-06-2023 History of Social function [facility] Start: 09-16-2023 Alcohol Comment 4 per year [facility] Start: 05-08-2022 Sex Female (finding) [facility] NEGATED: Highlighted row [facility] Goals Date Patient Goal Desired Activity /State Mental Status Date Assessment Result Facility 08-06-2023 Cognitive function Voice/Name [facility] Work Phone: Clinical Notes 06-12-2023 to 04-08-2025 Telephone Encounter - ALEXANDER Paredes - 11/13/2023 1:09 PM EDTTelephone Encounter - ALEXANDER Paredes - 11/13/2023 1:09 PM EDTTelephone Encounter - Salima Crews - 11/12/2023 12:53 PM EDTAttachments Note Date & Type Note Facility 04-08-2025 Evaluation + Plan note Diagnostic Tests PendingReverse T3, Serum 04/08/25 [facility] 11-13-2023 Telephone encounter Note LVM for patient. Okay to do both to tolerability. Take breaks as needed. Can call office back or send MyChart message if she has other questions. [facility] [employer] Work Phone: 11-13-2023 Miscellaneous Notes LVM for patient. Okay to do both to tolerability. Take breaks as needed. Can call office back or send MyChart message if she has other questions. Name of caller: Coni Contact phone number: [phone] Relationship to Patient: patient Provider: Dr. Vila Practice: [facility] Chief Complaint/Reason for Call: Patient called in with post-op questions from surgery done on 10/23. States she would like to know if she is able to start doing pilates again and walking her dogs, patient also wanted to note she has large dogs that pull a lot while walking. Patient requesting call back to discuss. Please Advise Best time of day caller can be reached: any Patient advised that office/PCP has 24-48 business hours to return their call: No documented in this encounter [facility] 11-12-2023 Telephone encounter Note Name of caller: Coni Contact phone number: [phone] Relationship to Patient: patient Provider: Dr. Vila Practice: [facility] Chief Complaint/Reason for Call: Patient called in with post-op questions from surgery done on 10/23. States she would like to know if she is able to start doing pilates again and walking her dogs, patient also wanted to note she has large dogs that pull a lot while walking. Patient requesting call back to discuss. Please Advise Best time of day caller can be reached: any Patient advised that office/PCP has 24-48 business hours to return their call: No [facility] 11-06-2023 History of Present illness Narrative Images from the original note were not included. CC: patient here for post-op visit s/p Diagnostic hysteroscopy, Laparoscopic myomectomy, resection of endometriosis on 10/23/23. Denies f/c, n/v, CP, or SOB. Eating and drinking normally. Moving around as well as she can. Denies bowel or bladder complaints. Overall doing very well since surgery. Op Note Surgical Findings: Normal external genitalia. Grade 1 apical prolapse with small, nulliparous cervix. Hysteroscopy attempted and unable to be performed due to suspected obstruction from intracavity fibroid. Intraabdominal survey revealed normal stomach, gallbladder, and appendix. No adhesions noted. Small powder burn lesion overlying the left uterosacral ligament <1cm total surface area. Normal appearing bilateral fallopian tubes and ovaries. Uterus found to have a 3-4cm subserosal and intramural anterior fibroid, a 3cm pedunculated posterior fibroid, and a deeper, 2-3cm type 3 intramural fibroid abutting the endometrial cavity. Pathology: Final Diagnosis A. LEFT UTEROSACRAL, BIOPSY - FIBROADIPOSE TISSUE WITH INVOLVEMENT BY ENDOMETRIOSIS. B. UTERINE FIBROIDS, MYOMECTOMY - MULTIPLE SEGMENTS OF LEIOMYOMA. BP 112/67 (BP Location: Left arm, Patient Position: Sitting, BP Cuff Size: Adult long) Pulse 89 Wt 158 lb (71.7 kg) BMI 27.12 kg/m Physical Exam Vitals reviewed. Constitutional: General: She is not in acute distress. Appearance: Normal appearance. She is not ill-appearing or toxic-appearing. HENT: Head: Normocephalic and atraumatic. Pulmonary: Effort: Pulmonary effort is normal. No respiratory distress. Abdominal: Palpations: Abdomen is soft. Comments: Incisions c/d/i Neurological: Mental Status: She is alert. Mental status is at baseline. Psychiatric: Mood and Affect: Mood normal. Behavior: Behavior normal. Judgment: Judgment normal. Assessment: Post op Fibroids Endometriosis Plan: Path and pics reviewed, benign. Meeting milestones and doing well. Precautions reviewed. All questions and concerns answered. Can follow up with Dr. Chisholm in [facility] for future fertility planning. Welcome to return to the office should she have any concerns. Voiced understanding and is appreciative for all the care she has received. documented in this encounter [facility] 11-05-2023 Telephone encounter Note S: Patient spoke with [facility] nurse regarding spotting s/p myomectomy. B: Onset of symptoms/concern Patient had surgery 2 weeks ago. States that she lifted more than she should have yesterday. Today symptoms began. She has a post op visit tomorrow morning. A: She noticed spotting today. She reports a scant amount of light pink spotting when wiping and some on the pad. She reports some mild cramping. Denies fever. R: Home care advice reviewed with patient. Patient understands care advice. No further needs at this time. Patient instructed to call back with new or worsening symptoms. Reason for Disposition [1] MILD bleeding or SPOTTING AND [2] after procedure (e.g., biopsy) or pelvic examination (e.g., pap smear) AND [3] < 7 days Protocols used: Vaginal Bleeding - [id number] [facility] 11-05-2023 Miscellaneous Notes S: Patient spoke with [facility] nurse regarding spotting s/p myomectomy. B: Onset of symptoms/concern Patient had surgery 2 weeks ago. States that she lifted more than she should have yesterday. Today symptoms began. She has a post op visit tomorrow morning. A: She noticed spotting today. She reports a scant amount of light pink spotting when wiping and some on the pad. She reports some mild cramping. Denies fever. R: Home care advice reviewed with patient. Patient understands care advice. No further needs at this time. Patient instructed to call back with new or worsening symptoms. Reason for Disposition [1] MILD bleeding or SPOTTING AND [2] after procedure (e.g., biopsy) or pelvic examination (e.g., pap smear) AND [3] < 7 days Protocols used: Vaginal Bleeding - Ieopnple-XHQWN-BP documented in this encounter [facility] 11-04-2023 Telephone encounter Note Called patient back, not taking Oxycodone and can step on gas and break pedals quickly. Okay to drive. Will stop as needed and walk around. Doing well otherwise. [facility] [employer] Work Phone: 11-04-2023 Miscellaneous Notes Called patient back, not taking Oxycodone and can step on gas and break pedals quickly. Okay to drive. Will stop as needed and walk around. Doing well otherwise. Patient is post-op, surgery on 10-23-23, asking if she is safe to drive on a 2-day trip, she will be the one driving. Please advise. documented in this encounter [facility] 11-04-2023 Telephone encounter Note Patient is post-op, surgery on 10-23-23, asking if she is safe to drive on a 2-day trip, she will be the one driving. Please advise. [facility] 10-24-2023 Note Patient: oCni Song er Procedure Summary Date: 10/23/23 Room / Location: [facility] Operating Room Anesthesia Start: 1234 Anesthesia Stop: 1500 Procedures: LAPAROSCOPIC MYOMECTOMY, DIAGNOSTIC HYSTEROSCOPY, RESECTION OF ENDOMETRIOSIS LAPAROSCOPIC MYOMECTOMY (Abdomen) Diagnosis: Benign neoplasm of connective and other soft tissue, unspecified (Benign neoplasm of connective and other soft tissue, unspecified [D21.9]) Surgeons: Sania Vila MD Responsible Provider: Cedric Ku DO Anesthesia Type: general, regional ASA Status: 2 Anesthesia Type: general, regional Vitals Value Taken Time BP 114/80 10/23/23 1700 Temp 36.6 10/24/23 1223 Pulse 88 10/23/23 1654 Resp 16 10/24/23 1223 SpO2 92 % 10/23/23 1648 Vitals shown include unfiled device data. Anesthesia Post Evaluation Patient location during evaluation: PACU Patient participation: complete - patient participated Level of consciousness: awake and alert Pain management: satisfactory to patient Airway patency: patent Dental Injury: no Cardiovascular status: acceptable, blood pressure returned to baseline and hemodynamically stable Respiratory status: acceptable and spontaneous ventilation Hydration status: euvolemic Nausea/Vomiting: controlled No notable events documented. Patient can be discharged once all PACU criteria has been met. [facility] 10-23-2023 Note Formatting of this n ote might be different from the original. Patient ambulated to bathroom and attempted to void, resident Dr. Rosales contacted and patient ok to be discharged prior to voiding. [facility] 10-23-2023 Note Formatting of this n ote might be different from the original. Patient ambulated to bathroom and attempted to void, resident Dr. Rosales contacted and patient ok to be discharged prior to voiding. [facility] 10-23-2023 Miscellaneous Notes Patient ambulated to bathroom and attempted to void, resident Dr. Rosales contacted and patient ok to be discharged prior to voiding. Patients at bedside, discharge instructions reviewed at this time Images from the original note were not included. Operative Note Department of Obstetrics and Gynecology Patient: Coni Quintero : 1985 Date of Procedure: 10/23/23 Pre-operative Diagnosis: 37 y.o. female 1. Fibroids Post-operative Diagnosis: Same, endometriosis Procedure: Diagnostic hysteroscopy, Laparoscopic myomectomy, resection of endometriosis Surgeon: Dr. Sania Vila Post Form Remover(s): Dr. Ginny Rosales, Dr. Leigh Ann Schafer Anesthesia: General ET, TAP block Antibiotics: 2g Ancef Findings: Normal external genitalia. Grade 1 apical prolapse with small, nulliparous cervix. Hysteroscopy attempted and unable to be performed due to suspected obstruction from intracavity fibroid. Intraabdominal survey revealed normal stomach, gallbladder, and appendix. No adhesions noted. Small powder burn lesion overlying the left uterosacral ligament <1cm total surface area. Normal appearing bilateral fallopian tubes and ovaries. Uterus found to have a 3-4cm subserosal and intramural anterior fibroid, a 3cm pedunculated posterior fibroid, and a deeper, 2-3cm type 3 intramural fibroid abutting the endometrial cavity. Total IV fluids/Blood products: 1000 ml crystalloid Fluid Deficit: <200cc Urine Output: 800 ml Estimated blood loss: 25 ml Drains: Rodriguez catheter removed at end of procedure Specimens: 3 fibroids (<250g total), left uterosacral ligament Instrument and Sponge Count: Correct x 2 Complications: None Condition: Stable, transferred to post anesthesia recovery Procedure: The patient was brought to the operating room with running IV fluids. General anesthesia was administered without difficulty. The patient was placed in a dorsal lithotomy position with Yellofin stirrups. She was then prepped and draped in the usual sterile fashion. A surgical timeout was performed which correctly identified the patient and procedure. Two right angle retractors were placed in the vagina and the anterior lip of the cervix was grasped with a single tooth tenaculum. The cervix was dilated with Jeff dilators to accommodate the Myosure hysteroscope. An attempt was made to introduce the hysteroscope with direct visualization but we were unable to enter the intrauterine cavity due to likely obstruction from a fibroid. A rodriguez catheter was then placed, and clear urine was noted. Attention was then directed to the laparoscopic portion of the procedure. A 5 mm skin incision was made at Perez's point. A 5mm optical trocar was inserted at this location using direct visual entry. The pneumoperitoneum was created with CO2 gas to a pressure of 15 mmHg. The entry site was inspected and revealed no evidence of visceral or vascular injury. 5 mm accessory ports were placed in the left and right lower quadrants under direct visualization. Abdominal survey revealed the above findings. While visualizing the uterus laparoscopically, a 6cm Sarah uterine manipulator was placed. A 10mm bladed balloon trocar was inserted at the umbilicus under direct visualization. Attention was directed to the pelvis. The fibroids noted above were identified. 15cc dilute vasopressin (20u vasopressin in 100cc saline) was injected at the base of the anterior fibroid. The Harmonic was then used to make a transverse incision overlying the center of the fibroid to the level of the capsule. The harmonic and blunt dissection were used to remove the fibroid from the surrounding myometrium which was then placed in the posterior cul-de-sac for later removal. There was another 2-3cm fibroid found that was identified deeper and removed in a similar manner through the same hysterotomy. The endometrial cavity was not obviously entered during this dissection but the patient was given antibiotics intraoperatively prophylactically. This fibroid was also placed in the posterior cul-de-sac for later removal. A 11mm suprapubic incision was made with a scalpel. A 12mm bladed balloon trocar was then inserted at this site under direct visualization. 2-0 Stratafix suture was used to close the uterine defect in a running fashion in 2 layers. Hemostasis was achieved. The posterior pedunculated fibroid was then grasped and transected at the base using the Harmonic. The uterine defect was closed using 0 Monocryl with one whdftv-uu-jsoci suture and one interrupted suture. Hemostasis was ensured. There was a powder burn lesion consistent with endometriosis identified overlying the left uterosacral ligament. The peritoneum was grasped with [place] forceps and elevated. The harmonic was used to transect this area which was removed and sent to pathology for evaluation. At this point, the suprapubic incision was extended laterally 3cm to the level of the fascia. The trocar was removed and a GelPoint mini was inserted at this location. The fibroids were grasped and removed through this port then sent to pathology for evaluation. The GelPoint mini was removed. The uterus was palpated digitally and no other fibroids or masses were felt. Nu-knit was applied to the hysterotomy for further hemostasis and sutured in place using one interrupted stitch of 3-0 Monocryl. The fascia at this location was then closed using 0 vicryl in a running fashion. Again, we placed the scope into the abdomen. Again hemostasis was noted. The 10 mm umbilical port was closed using a Kendrick-Natanael and an 0 Vicryl. The surgical area was watched under low insufflation pressure and noted to be hemostatic. The trocar at [place] was visualized and without injury. Pneumoperitoneum was then released and the ports removed. The incisions were closed with 4-0 Monocryl and dressing with steri strips and Tegaderms. The patient tolerated the procedure well. All counts were correct x2. Patient was awakened from general anesthesia and taken to the PACU in stable condition. Ginny Rosales MD 10/23/2023, 2:50 PM I was present and scrubbed for the entire duration of the procedure. I have read the above operative note agree with findings and description of the procedure and have edited it as needed. Sania Vila MD 10/23/2023 , 3:47 PM documented in this encounter [facility] 10-23-2023 Note Patient: Coni pearson Procedure Summary Date: 10/23/23 Room / Location: [place] [id number] [facility] Operating Room Anesthesia Start: 1234 Anesthesia Stop: 1500 Procedures: LAPAROSCOPIC MYOMECTOMY, DIAGNOSTIC HYSTEROSCOPY, RESECTION OF ENDOMETRIOSIS LAPAROSCOPIC MYOMECTOMY (Abdomen) Diagnosis: Benign neoplasm of connective and other soft tissue, unspecified (Benign neoplasm of connective and other soft tissue, unspecified [D21.9]) Surgeons: Sania Vila MD Responsible Provider: Cedric uK DO Anesthesia Type: general, regional ASA Status: 2 Anesthesia Type: general, regional Vitals Value Taken Time BP 114/80 10/23/23 1700 Temp 36.6 10/24/23 1222 Pulse 88 10/23/23 1654 Resp 16 10/24/23 1222 SpO2 92 % 10/23/23 1648 Vitals shown include unfiled device data. Anesthesia Post Evaluation Patient location during evaluation: PACU Patient participation: complete - patient participated Level of consciousness: awake and alert Pain management: satisfactory to patient Multimodal analgesia pain management approach Airway patency: patent Two or more strategies used to mitigate risk of obstructive sleep apnea Cardiovascular status: acceptable and hemodynamically stable Respiratory status: acceptable Hydration status: acceptable No notable events documented. MIPS #[id number] PONV Patient received an inhalational anesthetic (4554F) Patient does not exhibit three or more risk factors for PONV ([id number])) I completed my handoff to the receiving clinician during which we: 1. Identified the patient 2. Identified the responsible provider 3. Reviewed the pertinent medical history 4. Discussed the surgical course 5. Reviewed intra-op anesthesia management and issues during anesthesia 6. Set expectations for post-procedure period 7. Allowed opportunity for questions and acknowledgement of understanding. [facility] 10-23-2023 Note Formatting of this n ote might be different from the original. Patients at bedside, discharge instructions reviewed at this time [facility] 10-23-2023 Note Formatting of this n ote might be different from the original. Patients at bedside, discharge instructions reviewed at this time [facility] 10-23-2023 Note Airway Date/Time: 10/23/2023 12:39 PM Urgency: scheduled Airway not difficult General Information and Staff Patient location during procedure: Procedural Resident/EQUITIES TRADER: Demarcus Arango APRN - EQUITIES TRADER Performed: EQUITIES TRADER Indications and Patient Condition Indications for airway management: anesthesia Preoxygenated: yes Patient position: sniffing MILS maintained throughout Mask difficulty assessment: 1 - vent by mask Final Airway Details Final airway type: endotracheal airway Successful airway: ETT Cuffed: yes Successful intubation technique: direct laryngoscopy Blade: Quintero Blade size: #3 ETT size (mm): 7.0 Cormack-Lehane Classification: grade I - full view of glottis Placement verified by: chest auscultation Measured from: teeth ETT to teeth (cm): 22 Number of attempts at approach: 1 [facility] 10-23-2023 Hospital Discharge instructions Sania Vila MD - 10/23/2023 2:42 PM EST Discharge Instructions for Laparoscopy Laparoscopy is a video-assisted surgery done through several small incisions. Laparoscopic surgery has many benefits, including: Smaller incisions Less pain, risk of problems, and scarring [place] hospital stay and shorter recovery time Home Care No bathing, soaking or submerging in water until cleared at your post op visit Keep your incision sites clean and dry. You may shower and let warm soapy water rinse over incisions. Pat them dry. The stitches under the skin dissolve on their own. Do not pick at them if you see them. Do not douche or put anything in your vagina, such as a tampon or have sexual relations, until clear by your physician at your 6 week visit. Diet You may resume a normal diet after surgery. Drink plenty of fluids to avoid constipation and stay well hydrated Physical Activity You should not drive while taking narcotics. In order to drive you must be off narcotic medication and strong enough to move your abdomen. Press the pedals and perform safe driving functions. For most this is about 2-3 weeks. Return to your normal activities gradually. Stairs are okay. Take daily walks as tolerated. Avoid heavy lifting over 10 pounds until cleared at your post op visit Medications If you had to stop medicines before the procedure, ask your doctor when you can start again. Medicines often stopped include: Anti-inflammatory drugs (eg, aspirin ), blood thinners, like clopidogrel (Plavix) or warfarin (Coumadin) You will likely go home with a prescription for pain medicine and a stool softener If you are taking medicines, follow these general guidelines: Take your medicine as directed. Do not change the amount or the schedule. Do not stop taking them without talking to your doctor. Do not share them. Know what the results and side effects. Report them to your doctor. Some drugs can be dangerous when mixed. Talk to a doctor or pharmacist if you are taking more than one drug. This includes xvgk-afd-hmkdlte medicine and herb or dietary supplements. Plan ahead for refills so you do not run out. Follow-up Schedule a follow-up appointment as directed by your doctor. Call Your Doctor If Any of the Following Occurs It is important for you to monitor your recovery once you leave the hospital. That way, you can alert your doctor to any problems immediately. If any of the following occurs, call your doctor: Signs of infection, including fever and chills Redness, swelling, increasing pain, excessive bleeding, leakage, or any discharge from the incision site Incision opens up Nausea and/or vomiting that you cannot control with the medicines you were given after surgery, or which persist for more than two days after discharge from the hospital Dizziness or fainting Cough, shortness of breath, or chest pain Heavy bleeding Pain that you cannot control with the medicines you have been given Pain, burning, urgency or frequency of urination, or persistent bleeding in the urine Swelling, redness, or pain in your leg In case of an emergency, CALL 911 immediately. The following attachments cannot be sent through Care Everywhere.Hysteroscopy Discharge Instructions (Icelandic)documented in this encounter [facility] 10-23-2023 Note Peripheral Block Time Out: 10/23/2023 12:38 PM Patient location during procedure: Procedural Start time: 10/23/2023 12:38 PM End time: 10/23/2023 12:41 PM Reason for block: at surgeon's request and post-op pain management Staffing Performed: EQUITIES TRADER Resident/EQUITIES TRADER: Dorothea Nolasco APRN - EQUITIES TRADER Preanesthetic Checklist Completed: patient identified, IV checked, site marked, risks and benefits discussed, surgical consent, monitors and equipment checked, pre-op evaluation and timeout performed Region: [place] Primary: TAP (Bupivacaine 0.375%/ Epi 1:200,000/ Dex 0.1mg/mL 40ml divided evenly bilateral) Secondary: Upper rectus (Bupivacaine 0.375%/ Epi 1:200,000/ Dex 0.1mg/mL 20ml divided evenly bilateral) Peripheral Block Patient position: supine Prep: ChloraPrep Patient monitoring: heart rate, clinical research monitor, continuous pulse ox and continuous capnometry O2: ETT/LMA Laterality: bilateral Injection technique: single-shot Guidance: ultrasound guided -image retained in chart, tip of the needle identified by ultraound during injection. Needle Needle: 21G X 110 mm Additional Notes 10/23/2023 12:38 PM Assessment Injection assessment: negative aspiration for heme, no paresthesia on injection and incremental injection Heart rate change: no Slow fractionated injection: yes Required Documentation: Relevant anatomy identified (Nerves, Vessels, Muscles), Negative for blood on aspiration, Local anesthetic injected incrementally with intermittent aspiration every 5 mL, Normal resistance with injection, No EKG changes noted, No symptoms of toxicity, Local anesthetic spread visualized around nerves or plane. and Local anesthetic injected without difficultyMedications keyWFIOXflagj-mritssozboh-unrabxd rine (TAP) syringe - Injection 60 mL - 10/23/2023 12:38:00 PM [facility] 10-23-2023 Note M[employer]AR [employer]ER Pre-Op Note Patient Name: Coin Quintero Patient : 1985 Room/Bed: OR/NONE Admission Date/Time: 10/23/2023 10:55 AM Primary Care Physician: Kellee Kinney MD Date: 10/23/2023 Time: 11:57 AM The patient was seen in pre-op holding. She is here for surgery. The procedure risks and complications were reviewed. The patient had all of her questions answered. OBSTETRICAL HISTORY: OB History Para Term AB Living 0 0 0 0 0 0 SAB IAB Ectopic Multiple Live Births 0 0 0 0 0 PAST MEDICAL HISTORY: Past Medical History: Diagnosis Date MTHFR gene mutation PAST SURGICAL HISTORY: Past Surgical History: Procedure Laterality Date COLONOSCOPY UPPER GASTROINTESTINAL ENDOSCOPY ALLERGIES: No Known Allergies MEDICATIONS: Current Facility-Administered Medications: ALPRAZolam (Xanax) disintegrating tablet 0.25 mg, 0.25 mg, Oral, PRN, Zaid Meade MD lactated Ringer's (LR) infusion, 50 mL/hr, IntraVENous, Continuous, Zaid Meade MD, Last Rate: 50 mL/hr at 10/23/23 1128, 50 mL/hr at 10/23/23 1128 sodium chloride 0.9 % infusion, 5-250 mL/hr, IntraVENous, PRN, Zaid Meade MD sodium chloride 0.9 % infusion, 5-250 mL/hr, IntraVENous, PRN, Sania Vila MD sodium chloride 0.9% (NS) flush 5-40 mL, 5-40 mL, IntraVENous, q12h, Zaid Meade MD sodium chloride 0.9% (NS) flush 5-40 mL, 5-40 mL, IntraVENous, PRN, Zaid Meade MD sodium chloride 0.9% (NS) flush 5-40 mL, 5-40 mL, IntraVENous, q12h, Sania Vila MD sodium chloride 0.9% (NS) flush 5-40 mL, 5-40 mL, IntraVENous, PRN, Sania Vila MD FAMILY HISTORY: family history includes Breast cancer in her maternal grandmother; Colon cancer in her maternal grandfather; Heart defect in her paternal grandfather and paternal grandmother. SOCIAL HISTORY: Social History Socioeconomic History Marital status: Single Spouse name: Not on file Number of children: Not on file Years of education: Not on file Highest education level: Not on file Occupational History Not on file Tobacco Use Smoking status: Never Smokeless tobacco: Never Vaping Use Vaping Use: Never used Substance and Sexual Activity Alcohol use: Not Currently Comment: 4 per year Drug use: Never Sexual activity: Yes Partners: Male Other Topics Concern Not on file Social History Narrative Not on file Social Determinants of Health Financial Resource Strain: Not on file Food Insecurity: Not on file Transportation Needs: Not on file Physical Activity: Not on file Stress: Not on file Social Connections: Not on file Intimate Partner Violence: Not on file Housing Stability: Not on file VITALS: Vitals: 10/23/23 1122 BP: 129/76 Pulse: 93 Resp: 16 Temp: 36.2 ?C (97.2 ?F) SpO2: 97% Weight: 74.4 kg (164 lb) Height: 1.626 m (5' 4") PHYSICAL EXAM and ROS: Gen: A&Ox3, NAD Resp: Even, unlabored Psych: normal thought, judgement LAB RESULTS: Admission on 10/23/2023 Component Date Value Ref Range Status Preg Test, Ur 10/23/2023 Negative Negative Final POSITIVE QC 10/23/2023 Pass Final NEGATIVE QC 10/23/2023 Pass Final HCG LOT NUMBER 10/23/2023 [id number] Final Auto WBC 10/23/2023 5.9 3.6 - 10.7 10*3/uL Final RBC 10/23/2023 4.27 3.80 - 5.20 10*6/uL Final Hemoglobin 10/23/2023 12.6 11.7 - 16.0 g/dL Final Hematocrit 10/23/2023 37.2 35.0 - 47.0 % Final MCV 10/23/2023 87.1 77.0 - 99.0 fL Final MCH 10/23/2023 29.5 26.0 - 34.0 pg Final MCHC 10/23/2023 33.9 30.5 - 36.0 % Final RDW 10/23/2023 13.3 11.5 - 15.0 % Final Platelets 10/23/2023 297 140 - 440 10*3/uL Final MPV 10/23/2023 10.7 9.0 - 12.7 fL Final DIAGNOSTICS: No results found. DIAGNOSIS & PLAN: - Proceed with planned procedure: hysteroscopic myomectomy, possible laparoscopic myomectomy - The patient had all of their questions answered. - Consent was signed - The patient is ready for transport to the operative suite. Sania Vila MD 10/23/2023, 11:57 [facility] 10-23-2023 Note Formatting of this n ote might be different from the original. Images from the original note were not included. Operative Note Department of Obstetrics and Gynecology Patient: Coni Quintero : 1985 Date of Procedure: 10/23/23 Pre-operative Diagnosis: 37 y.o. female 1. Fibroids Post-operative Diagnosis: Same, endometriosis Procedure: Diagnostic hysteroscopy, Laparoscopic myomectomy, resection of endometriosis Surgeon: Dr. Sania Vila Post Form Remover(s): Dr. Ginny Rosales, Dr. Leigh Ann Schafer Anesthesia: General ET, TAP block Antibiotics: 2g Ancef Findings: Normal external genitalia. Grade 1 apical prolapse with small, nulliparous cervix. Hysteroscopy attempted and unable to be performed due to suspected obstruction from intracavity fibroid. Intraabdominal survey revealed normal stomach, gallbladder, and appendix. No adhesions noted. Small powder burn lesion overlying the left uterosacral ligament <1cm total surface area. Normal appearing bilateral fallopian tubes and ovaries. Uterus found to have a 3-4cm subserosal and intramural anterior fibroid, a 3cm pedunculated posterior fibroid, and a deeper, 2-3cm type 3 intramural fibroid abutting the endometrial cavity. Total IV fluids/Blood products: 1000 ml crystalloid Fluid Deficit: <200cc Urine Output: 800 ml Estimated blood loss: 25 ml Drains: Rodriguez catheter removed at end of procedure Specimens: 3 fibroids (<250g total), left uterosacral ligament Instrument and Sponge Count: Correct x 2 Complications: None Condition: Stable, transferred to post anesthesia recovery Procedure: The patient was brought to the operating room with running IV fluids. General anesthesia was administered without difficulty. The patient was placed in a dorsal lithotomy position with Yellofin stirrups. She was then prepped and draped in the usual sterile fashion. A surgical timeout was performed which correctly identified the patient and procedure. Two right angle retractors were placed in the vagina and the anterior lip of the cervix was grasped with a single tooth tenaculum. The cervix was dilated with Jeff dilators to accommodate the Myosure hysteroscope. An attempt was made to introduce the hysteroscope with direct visualization but we were unable to enter the intrauterine cavity due to likely obstruction from a fibroid. A rodriguez catheter was then placed, and clear urine was noted. Attention was then directed to the laparoscopic portion of the procedure. A 5 mm skin incision was made at Perez's point. A 5mm optical trocar was inserted at this location using direct visual entry. The pneumoperitoneum was created with CO2 gas to a pressure of 15 mmHg. The entry site was inspected and revealed no evidence of visceral or vascular injury. 5 mm accessory ports were placed in the left and right lower quadrants under direct visualization. Abdominal survey revealed the above findings. While visualizing the uterus laparoscopically, a 6cm Sarah uterine manipulator was placed. A 10mm bladed balloon trocar was inserted at the umbilicus under direct visualization. Attention was directed to the pelvis. The fibroids noted above were identified. 15cc dilute vasopressin (20u vasopressin in 100cc saline) was injected at the base of the anterior fibroid. The Harmonic was then used to make a transverse incision overlying the center of the fibroid to the level of the capsule. The harmonic and blunt dissection were used to remove the fibroid from the surrounding myometrium which was then placed in the posterior cul-de-sac for later removal. There was another 2-3cm fibroid found that was identified deeper and removed in a similar manner through the same hysterotomy. The endometrial cavity was not obviously entered during this dissection but the patient was given antibiotics intraoperatively prophylactically. This fibroid was also placed in the posterior cul-de-sac for later removal. A 11mm suprapubic incision was made with a scalpel. A 12mm bladed balloon trocar was then inserted at this site under direct visualization. 2-0 Stratafix suture was used to close the uterine defect in a running fashion in 2 layers. Hemostasis was achieved. The posterior pedunculated fibroid was then grasped and transected at the base using the Harmonic. The uterine defect was closed using 0 Monocryl with one xheupv-sh-yjabe suture and one interrupted suture. Hemostasis was ensured. There was a powder burn lesion consistent with endometriosis identified overlying the left uterosacral ligament. The peritoneum was grasped with Maryland forceps and elevated. The harmonic was used to transect this area which was removed and sent to pathology for evaluation. At this point, the suprapubic incision was extended laterally 3cm to the level of the fascia. The trocar was removed and a GelPoint mini was inserted at this location. The fibroids were grasped and removed through this port then sent to pathology for evaluation. The GelPoint mini was removed. The uterus was palpated digitally and no other fibroids or masses were felt. Nu-knit was applied to the hysterotomy for further hemostasis and sutured in place using one interrupted stitch of 3-0 Monocryl. The fascia at this location was then closed using 0 vicryl in a running fashion. Again, we placed the scope into the abdomen. Again hemostasis was noted. The 10 mm umbilical port was closed using a Kendrick-Natanael and an 0 Vicryl. The surgical area was watched under low insufflation pressure and noted to be hemostatic. The trocar at [place] was visualized and without injury. Pneumoperitoneum was then released and the ports removed. The incisions were closed with 4-0 Monocryl and dressing with steri strips and Tegaderms. The patient tolerated the procedure well. All counts were correct x2. Patient was awakened from general anesthesia and taken to the PACU in stable condition. Ginny Rosales MD 10/23/2023, 2:50 PM I was present and scrubbed for the entire duration of the procedure. I have read the above operative note agree with findings and description of the procedure and have edited it as needed. Sania Vila MD 10/23/2023 , 3:47 PM [facility] 10-23-2023 Note Formatting of this n ote might be different from the original. Images from the original note were not included. Operative Note Department of Obstetrics and Gynecology Patient: Coni Quintero : 1985 Date of Procedure: 10/23/23 Pre-operative Diagnosis: 37 y.o. female 1. Fibroids Post-operative Diagnosis: Same, endometriosis Procedure: Diagnostic hysteroscopy, Laparoscopic myomectomy, resection of endometriosis Surgeon: Dr. Sania Vila Post Form Remover(s): Dr. Ginny Rosales, Dr. Leigh Ann Schafer Anesthesia: General ET, TAP block Antibiotics: 2g Ancef Findings: Normal external genitalia. Grade 1 apical prolapse with small, nulliparous cervix. Hysteroscopy attempted and unable to be performed due to suspected obstruction from intracavity fibroid. Intraabdominal survey revealed normal stomach, gallbladder, and appendix. No adhesions noted. Small powder burn lesion overlying the left uterosacral ligament <1cm total surface area. Normal appearing bilateral fallopian tubes and ovaries. Uterus found to have a 3-4cm subserosal and intramural anterior fibroid, a 3cm pedunculated posterior fibroid, and a deeper, 2-3cm type 3 intramural fibroid abutting the endometrial cavity. Total IV fluids/Blood products: 1000 ml crystalloid Fluid Deficit: <200cc Urine Output: 800 ml Estimated blood loss: 25 ml Drains: Rodriguez catheter removed at end of procedure Specimens: 3 fibroids (<250g total), left uterosacral ligament Instrument and Sponge Count: Correct x 2 Complications: None Condition: Stable, transferred to post anesthesia recovery Procedure: The patient was brought to the operating room with running IV fluids. General anesthesia was administered without difficulty. The patient was placed in a dorsal lithotomy position with Yellofin stirrups. She was then prepped and draped in the usual sterile fashion. A surgical timeout was performed which correctly identified the patient and procedure. Two right angle retractors were placed in the vagina and the anterior lip of the cervix was grasped with a single tooth tenaculum. The cervix was dilated with Jeff dilators to accommodate the Myosure hysteroscope. An attempt was made to introduce the hysteroscope with direct visualization but we were unable to enter the intrauterine cavity due to likely obstruction from a fibroid. A rodriguez catheter was then placed, and clear urine was noted. Attention was then directed to the laparoscopic portion of the procedure. A 5 mm skin incision was made at [place]. A 5mm optical trocar was inserted at this location using direct visual entry. The pneumoperitoneum was created with CO2 gas to a pressure of 15 mmHg. The entry site was inspected and revealed no evidence of visceral or vascular injury. 5 mm accessory ports were placed in the left and right lower quadrants under direct visualization. Abdominal survey revealed the above findings. While visualizing the uterus laparoscopically, a 6cm Sarah uterine manipulator was placed. A 10mm bladed balloon trocar was inserted at the umbilicus under direct visualization. Attention was directed to the pelvis. The fibroids noted above were identified. 15cc dilute vasopressin (20u vasopressin in 100cc saline) was injected at the base of the anterior fibroid. The Harmonic was then used to make a transverse incision overlying the center of the fibroid to the level of the capsule. The harmonic and blunt dissection were used to remove the fibroid from the surrounding myometrium which was then placed in the posterior cul-de-sac for later removal. There was another 2-3cm fibroid found that was identified deeper and removed in a similar manner through the same hysterotomy. The endometrial cavity was not obviously entered during this dissection but the patient was given antibiotics intraoperatively prophylactically. This fibroid was also placed in the posterior cul-de-sac for later removal. A 11mm suprapubic incision was made with a scalpel. A 12mm bladed balloon trocar was then inserted at this site under direct visualization. 2-0 Stratafix suture was used to close the uterine defect in a running fashion in 2 layers. Hemostasis was achieved. The posterior pedunculated fibroid was then grasped and transected at the base using the Harmonic. The uterine defect was closed using 0 Monocryl with one [id number]-[id number] suture and one interrupted suture. Hemostasis was ensured. There was a powder burn lesion consistent with endometriosis identified overlying the left uterosacral ligament. The peritoneum was grasped with [place] forceps and elevated. The harmonic was used to transect this area which was removed and sent to pathology for evaluation. At this point, the suprapubic incision was extended laterally 3cm to the level of the fascia. The trocar was removed and a GelPoint mini was inserted at this location. The fibroids were grasped and removed through this port then sent to pathology for evaluation. The GelPoint mini was removed. The uterus was palpated digitally and no other fibroids or masses were felt. Nu-knit was applied to the hysterotomy for further hemostasis and sutured in place using one interrupted stitch of 3-0 Monocryl. The fascia at this location was then closed using 0 vicryl in a running fashion. Again, we placed the scope into the abdomen. Again hemostasis was noted. The 10 mm umbilical port was closed using a Kendrick-Natanael and an 0 Vicryl. The surgical area was watched under low insufflation pressure and noted to be hemostatic. The trocar at [place] was visualized and without injury. Pneumoperitoneum was then released and the ports removed. The incisions were closed with 4-0 Monocryl and dressing with steri strips and Tegaderms. The patient tolerated the procedure well. All counts were correct x2. Patient was awakened from general anesthesia and taken to the PACU in stable condition. Ginny Rosales MD 10/23/2023, 2:50 PM I was present and scrubbed for the entire duration of the procedure. I have read the above operative note agree with findings and description of the procedure and have edited it as needed. Sania Vila MD 10/23/2023 , 3:47 PM [facility] 10-23-2023 History and physical note Images from the original note were not included. [employer] Pre-Op Note Patient Name: Coni Quintero Patient : 1985 Room/Bed: OR/NONE Admission Date/Time: 10/23/2023 10:55 AM Primary Care Physician: Kelele Kinney MD Date: 10/23/2023 Time: 11:57 AM The patient was seen in pre-op holding. She is here for surgery. The procedure risks and complications were reviewed. The patient had all of her questions answered. OBSTETRICAL HISTORY: OB History Para Term AB Living 0 0 0 0 0 0 SAB IAB Ectopic Multiple Live Births 0 0 0 0 0 PAST MEDICAL HISTORY: Past Medical History: Diagnosis Date MTHFR gene mutation PAST SURGICAL HISTORY: Past Surgical History: Procedure Laterality Date COLONOSCOPY UPPER GASTROINTESTINAL ENDOSCOPY ALLERGIES: No Known Allergies MEDICATIONS: Current Facility-Administered Medications: ALPRAZolam (Xanax) disintegrating tablet 0.25 mg, 0.25 mg, Oral, PRN, Zaid Meade MD lactated Ringer's (LR) infusion, 50 mL/hr, IntraVENous, Continuous, Zaid Meade MD, Last Rate: 50 mL/hr at 10/23/23 1128, 50 mL/hr at 10/23/23 1128 sodium chloride 0.9 % infusion, 5-250 mL/hr, IntraVENous, PRN, Zaid Meade MD sodium chloride 0.9 % infusion, 5-250 mL/hr, IntraVENous, PRN, Sania Vila MD sodium chloride 0.9% (NS) flush 5-40 mL, 5-40 mL, IntraVENous, q12h, Zaid Meade MD sodium chloride 0.9% (NS) flush 5-40 mL, 5-40 mL, IntraVENous, PRN, Zaid Meade MD sodium chloride 0.9% (NS) flush 5-40 mL, 5-40 mL, IntraVENous, q12h, Sania Vila MD sodium chloride 0.9% (NS) flush 5-40 mL, 5-40 mL, IntraVENous, PRN, Sania Vila MD FAMILY HISTORY: family history includes Breast cancer in her maternal grandmother; Colon cancer in her maternal grandfather; Heart defect in her paternal grandfather and paternal grandmother. SOCIAL HISTORY: Social History Socioeconomic History Marital status: Single Spouse name: Not on file Number of children: Not on file Years of education: Not on file Highest education level: Not on file Occupational History Not on file Tobacco Use Smoking status: Never Smokeless tobacco: Never Vaping Use Vaping Use: Never used Substance and Sexual Activity Alcohol use: Not Currently Comment: 4 per year Drug use: Never Sexual activity: Yes Partners: Male Other Topics Concern Not on file Social History Narrative Not on file Social Determinants of Health Financial Resource Strain: Not on file Food Insecurity: Not on file Transportation Needs: Not on file Physical Activity: Not on file Stress: Not on file Social Connections: Not on file Intimate Partner Violence: Not on file Housing Stability: Not on file VITALS: Vitals: 10/23/23 1122 BP: 129/76 Pulse: 93 Resp: 16 Temp: 36.2 C (97.2 F) SpO2: 97% Weight: 74.4 kg (164 lb) Height: 1.626 m (5' 4") PHYSICAL EXAM and ROS: Gen: A&Ox3, NAD Resp: Even, unlabored Psych: normal thought, judgement LAB RESULTS: Admission on 10/23/2023 Component Date Value Ref Range Status Preg Test, Ur 10/23/2023 Negative Negative Final POSITIVE QC 10/23/2023 Pass Final NEGATIVE QC 10/23/2023 Pass Final HCG LOT NUMBER 10/23/2023 [id number] Final Auto WBC 10/23/2023 5.9 3.6 - 10.7 10*3/uL Final RBC 10/23/2023 4.27 3.80 - 5.20 10*6/uL Final Hemoglobin 10/23/2023 12.6 11.7 - 16.0 g/dL Final Hematocrit 10/23/2023 37.2 35.0 - 47.0 % Final MCV 10/23/2023 87.1 77.0 - 99.0 fL Final MCH 10/23/2023 29.5 26.0 - 34.0 pg Final MCHC 10/23/2023 33.9 30.5 - 36.0 % Final RDW 10/23/2023 13.3 11.5 - 15.0 % Final Platelets 10/23/2023 297 140 - 440 10*3/uL Final MPV 10/23/2023 10.7 9.0 - 12.7 fL Final DIAGNOSTICS: No results found. DIAGNOSIS & PLAN: - Proceed with planned procedure: hysteroscopic myomectomy, possible laparoscopic myomectomy - The patient had all of their questions answered. - Consent was signed - The patient is ready for transport to the operative suite. Sania Vila MD 10/23/2023, 11:57 AM [facility] 10-23-2023 History and physical note Images from the original note were not included. [employer] Pre-Op Note Patient Name: Coni Quintero Patient : 1985 Room/Bed: OR/NONE Admission Date/Time: 10/23/2023 10:55 AM Primary Care Physician: Kellee Kinney MD Date: 10/23/2023 Time: 11:57 AM The patient was seen in pre-op holding. She is here for surgery. The procedure risks and complications were reviewed. The patient had all of her questions answered. OBSTETRICAL HISTORY: OB History Para Term AB Living 0 0 0 0 0 0 SAB IAB Ectopic Multiple Live Births 0 0 0 0 0 PAST MEDICAL HISTORY: Past Medical History: Diagnosis Date MTHFR gene mutation PAST SURGICAL HISTORY: Past Surgical History: Procedure Laterality Date COLONOSCOPY UPPER GASTROINTESTINAL ENDOSCOPY ALLERGIES: No Known Allergies MEDICATIONS: Current Facility-Administered Medications: ALPRAZolam (Xanax) disintegrating tablet 0.25 mg, 0.25 mg, Oral, PRN, Zaid Meade MD lactated Ringer's (LR) infusion, 50 mL/hr, IntraVENous, Continuous, Zaid Meade MD, Last Rate: 50 mL/hr at 10/23/23 1128, 50 mL/hr at 10/23/23 1128 sodium chloride 0.9 % infusion, 5-250 mL/hr, IntraVENous, PRN, Zaid Meade MD sodium chloride 0.9 % infusion, 5-250 mL/hr, IntraVENous, PRN, Sania Vila MD sodium chloride 0.9% (NS) flush 5-40 mL, 5-40 mL, IntraVENous, q12h, Zaid Meade MD sodium chloride 0.9% (NS) flush 5-40 mL, 5-40 mL, IntraVENous, PRN, Zaid Meade MD sodium chloride 0.9% (NS) flush 5-40 mL, 5-40 mL, IntraVENous, q12h, Sania Vila MD sodium chloride 0.9% (NS) flush 5-40 mL, 5-40 mL, IntraVENous, PRN, Sania Vila MD FAMILY HISTORY: family history includes Breast cancer in her maternal grandmother; Colon cancer in her maternal grandfather; Heart defect in her paternal grandfather and paternal grandmother. SOCIAL HISTORY: Social History Socioeconomic History Marital status: Single Spouse name: Not on file Number of children: Not on file Years of education: Not on file Highest education level: Not on file Occupational History Not on file Tobacco Use Smoking status: Never Smokeless tobacco: Never Vaping Use Vaping Use: Never used Substance and Sexual Activity Alcohol use: Not Currently Comment: 4 per year Drug use: Never Sexual activity: Yes Partners: Male Other Topics Concern Not on file Social History Narrative Not on file Social Determinants of Health Financial Resource Strain: Not on file Food Insecurity: Not on file Transportation Needs: Not on file Physical Activity: Not on file Stress: Not on file Social Connections: Not on file Intimate Partner Violence: Not on file Housing Stability: Not on file VITALS: Vitals: 10/23/23 1122 BP: 129/76 Pulse: 93 Resp: 16 Temp: 36.2 C (97.2 F) SpO2: 97% Weight: 74.4 kg (164 lb) Height: 1.626 m (5' 4") PHYSICAL EXAM and ROS: Gen: A&Ox3, NAD Resp: Even, unlabored Psych: normal thought, judgement LAB RESULTS: Admission on 10/23/2023 Component Date Value Ref Range Status Preg Test, Ur 10/23/2023 Negative Negative Final POSITIVE QC 10/23/2023 Pass Final NEGATIVE QC 10/23/2023 Pass Final HCG LOT NUMBER 10/23/2023 [id number] Final Auto WBC 10/23/2023 5.9 3.6 - 10.7 10*3/uL Final RBC 10/23/2023 4.27 3.80 - 5.20 10*6/uL Final Hemoglobin 10/23/2023 12.6 11.7 - 16.0 g/dL Final Hematocrit 10/23/2023 37.2 35.0 - 47.0 % Final MCV 10/23/2023 87.1 77.0 - 99.0 fL Final MCH 10/23/2023 29.5 26.0 - 34.0 pg Final MCHC 10/23/2023 33.9 30.5 - 36.0 % Final RDW 10/23/2023 13.3 11.5 - 15.0 % Final Platelets 10/23/2023 297 140 - 440 10*3/uL Final MPV 10/23/2023 10.7 9.0 - 12.7 fL Final DIAGNOSTICS: No results found. DIAGNOSIS & PLAN: - Proceed with planned procedure: hysteroscopic myomectomy, possible laparoscopic myomectomy - The patient had all of their questions answered. - Consent was signed - The patient is ready for transport to the operative suite. Sania Vila MD 10/23/2023, 11:57 AM documented in this encounter [facility] 09-16-2023 Note Patient: Coni Song er Procedure Information Date/Time: 09/25/23 0830 Procedures: HYSTEROSCOPIC MYOMECTOMY, POSSIBLE LAPAROSCOPIC MYOMECTOMY LAPAROSCOPIC MYOMECTOMY (Abdomen) Location: [address] Operating Room Surgeons: Sania Vila MD Past Medical History: Past Medical History: No date: MTHFR gene mutation Past Surgical History: Past Surgical History: No date: COLONOSCOPY No date: UPPER GASTROINTESTINAL ENDOSCOPY Social History: TOBACCO: reports that she has never smoked. She has never used smokeless tobacco. ETOH: reports that she does not currently use alcohol. Social History Substance and Sexual Activity Drug Use Never Family History: Family History Problem Relation Name Age of Onset Heart defect Paternal Grandfather Heart defect Paternal Grandmother Breast cancer Maternal Grandmother Colon cancer Maternal Grandfather Screening: Having periods Clinical information reviewed: Tobacco Allergies Meds Problems Surg Hx OB Status Physical Exam Airway Mallampati: I TM distance: >3 FB Neck ROM: full Mouth Open: normalendotracheal tube not in place Cardiovascular Dental (+) Missing dentition normal Pulmonary Abdominal Anesthesia Plan patient is NPO appropriate Any family history or previous problems with anesthesia no ASA 2 general and regional Any family history or previous problems with anesthesia no The patient is not a current smoker. Anesthetic plan and risks discussed with patient. ERAS Type General ERAS [place] Screening STOP-Bang Total Score: 0 Labs: No results found for: "WBC", "HGB", "HCT", "MCV", "PLT" No results found for: "NA", "K", "CL", "CO2", "BUN", "CREATININE", "GLUCOSE", "CALCIUM", "PROT", "BILIRUBINFL", "ALKPHOS", "AST", "ALT", "EGFR", GLOB Pain Score: 2 No echocardiogram results found for the past 14 days No results found for this or any previous visit. [facility] 09-16-2023 Note Comprehensive Pre Bernstein rgical History and Physical ? 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 Based on the above evaluation, the benefits of the planned procedure likely exceed the risks. 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] - Managed per surgery - History and Physical exam - Anesthesia Lab Protocol Orders 2) Anemia - source - MAIRA - has required a blood transfusion - No - H&H pending Yes 3) Depression/Anxiety - feels controlled without medication - Patient may benefit from antianxiety medication DOS 4) Immunodeficiency disorder - sees functional medicine, not sure of this diagnosis - takes supplements as below 5) MTHFR gene mutation - hx of blood clots - on folate - consider additional prophylaxis measures perioperatively Visit Type: Pre-Admission Testing Visit Labs Ordered: H&H taken from patient's EMR on cellphone and under media tab Sleep Referral Ordered: NO - NEGATIVE SCREEN PER SLEEP REFERRAL PROTOCOL Total time spent (which include face to face and non face to face encounters) : 30 minutes Toxic drug monitoring/narrow therapeutic index drug monitoring : # Drug name : NA # Route administered : NA # Method of monitoring : NA PAT Protocol referenced includes: 1. Anesthesia Lab Protocol Orders 2. Perioperative Cardiovascular Risk Assessment 3. Anesthesia Assessment 4. Pain Assessment and Acute Pain Service Consult (if appropriate) 5. Medical Clearance/Consult from Internal Medicine ([facility]) 6. Shower/Wash Order (for designated surgeries) 7. 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 Vila's 09-10-23 office note: Coni Quintero is a 37 y.o. female presents for evaluation of fibroids as referral from Dr. Chisholm. She reports she has some pelvic pain and dyspareunia. Does have very cramping and painful periods. She has changed her diet significantly in the last year and this really helps. She has three small fibroids. One type 3 fibroid that would likely need laparoscopic resection, although small. OB History Para Term AB Living 0 0 0 0 0 0 SAB IAB Ectopic Multiple Live Births 0 0 0 0 0 ? Denies history of ME, CAD, CHF, TIA, CVA Past Medical History: Past Medical History: No date: MTHFR gene mutation Past Surgical History: Past Surgical History: No date: COLONOSCOPY No date: UPPER GASTROINTESTINAL ENDOSCOPY Medications Prior to Admission: Current Outpatient Medications on File Prior to Visit Medication Sig Dispense Refill b complex vitamins capsule Take 1 capsule by mouth daily. Sjsbsa-A32-Ynurrohtd Factor (INTRINSI G42-IOACPH PO) Take by mouth daily. Glutamine 500 MG capsule Take by mouth daily. L-Tyrosine 500 MG capsule Take by mouth 2 times daily. MAGNESIUM GLYCINATE PO Take 120 mg by mouth in the morning and 120 mg in the evening. NON FORMULARY Take 1 Capful by mouth daily. Co q 10 (qpower) NON FORMULARY Take 1 capsule by mouth before bedtime. Chicory root. NON FORMULARY Take 1 capsule by mouth daily. Vitamin D 125 mcg with K 45 mcg NON FORMULARY Take 2.5 mL by mouth in the morning and 2.5 mL in the evening. [place] poppy. ST CADE WORT PO Take 2.5 mL by mouth in the morning and 2.5 mL in the evening. liquid. No current facility-administered medications on file prior to visit. CHRONIC NARCOTIC USE: No Allergies: Patient has no known allergies. If patient has opioid allergy, is it okay to take Acetaminophen: N/A Social History: TOBACCO: reports that she has never smoked. She has never used smokeless tobacco. ETOH: reports that she does not currently use alcohol. Social History Substance and Sexual Activity Drug Use Never Family History: Family History Problem Relation Name Age of Onset Heart defect Paternal Grandfather Heart defect Paternal Grandmother Breast cancer Maternal Grandmother Colon cancer Maternal Grandfather REVIEW OF SYSTEMS: Review of Systems Constitutional: Negat (more content not included)... [facility] 09-16-2023 Note Comprehensive Pre Bernstein rgical History and Physical ? 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 Based on the above evaluation, the benefits of the planned procedure likely exceed the risks. 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] - Managed per surgery - History and Physical exam - Anesthesia Lab Protocol Orders 2) Anemia - source - MAIRA - has required a blood transfusion - No - H&H pending Yes 3) Depression/Anxiety - feels controlled without medication - Patient may benefit from antianxiety medication DOS 4) Immunodeficiency disorder - sees functional medicine, not sure of this diagnosis - takes supplements as below 5) MTHFR gene mutation - hx of blood clots - on folate - consider additional prophylaxis measures perioperatively Visit Type: Pre-Admission Testing Visit Labs Ordered: H&H taken from patient's EMR on cellphone and under media tab Sleep Referral Ordered: NO - NEGATIVE SCREEN PER SLEEP REFERRAL PROTOCOL Total time spent (which include face to face and non face to face encounters) : 30 minutes Toxic drug monitoring/narrow therapeutic index drug monitoring : # Drug name : NA # Route administered : NA # Method of monitoring : NA PAT Protocol referenced includes: 1. Anesthesia Lab Protocol Orders 2. Perioperative Cardiovascular Risk Assessment 3. Anesthesia Assessment 4. Pain Assessment and Acute Pain Service Consult (if appropriate) 5. Medical Clearance/Consult from Internal Medicine ([facility]) 6. Shower/Wash Order (for designated surgeries) 7. 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 Vila's 09-10-23 office note: Coni Quintero is a 37 y.o. female presents for evaluation of fibroids as referral from Dr. Chisholm. She reports she has some pelvic pain and dyspareunia. Does have very cramping and painful periods. She has changed her diet significantly in the last year and this really helps. She has three small fibroids. One type 3 fibroid that would likely need laparoscopic resection, although small. OB History Para Term AB Living 0 0 0 0 0 0 SAB IAB Ectopic Multiple Live Births 0 0 0 0 0 ? Denies history of ME, CAD, CHF, TIA, CVA Past Medical History: Past Medical History: No date: MTHFR gene mutation Past Surgical History: Past Surgical History: No date: COLONOSCOPY No date: UPPER GASTROINTESTINAL ENDOSCOPY Medications Prior to Admission: Current Outpatient Medications on File Prior to Visit Medication Sig Dispense Refill b complex vitamins capsule Take 1 capsule by mouth daily. Qebjtw-T58-Tkivxzinj Factor (INTRINSI S66-IVNCIQ PO) Take by mouth daily. Glutamine 500 MG capsule Take by mouth daily. L-Tyrosine 500 MG capsule Take by mouth 2 times daily. MAGNESIUM GLYCINATE PO Take 120 mg by mouth in the morning and 120 mg in the evening. NON FORMULARY Take 1 Capful by mouth daily. Co q 10 (qpower) NON FORMULARY Take 1 capsule by mouth before bedtime. Chicory root. NON FORMULARY Take 1 capsule by mouth daily. Vitamin D 125 mcg with K 45 mcg NON FORMULARY Take 2.5 mL by mouth in the morning and 2.5 mL in the evening. [place] poppy. [place] CADE WORT PO Take 2.5 mL by mouth in the morning and 2.5 mL in the evening. liquid. No current facility-administered medications on file prior to visit. CHRONIC NARCOTIC USE: No Allergies: Patient has no known allergies. If patient has opioid allergy, is it okay to take Acetaminophen: N/A Social History: TOBACCO: reports that she has never smoked. She has never used smokeless tobacco. ETOH: reports that she does not currently use alcohol. Social History Substance and Sexual Activity Drug Use Never Family History: Family History Problem Relation Name Age of Onset Heart defect Paternal Grandfather Heart defect Paternal Grandmother Breast cancer Maternal Grandmother Colon cancer Maternal Grandfather REVIEW OF SYSTEMS: Review of Systems Constitutional: Negat (more content not included)... [facility] 09-10-2023 Evaluation + Plan note Associated Problem(s): Fibroids -We reviewed multiple scenarios that we may encounter during surgery. Discussed would approach hysteroscopic myomectomy first. If I do believe the main type III fibroid would be mostly amendable to hysteroscopic resection and more like a type II fibroid at the time of surgery would proceed with hysteroscopic resection only, follow-up SIS in 2 weeks and potentially could need staged procedure or laparoscopic intervention if it had not resolved or if cavity was not normalized. Discussed alternatively if we perform hysteroscopy at the time of surgery and fibroid is mostly within the muscle, would perform laparoscopic myomectomy at this point in time. My concern is that this may be difficult to find is only approximately 2 cm. And we did review this together. Also reviewed that if we perform hysteroscopy during surgery and cavity is normal, would not proceed with myomectomy via either route We discussed the r/b/a of major surgery via laparoscopic myomectomy and reviewed the steps of the procedure in depth. Patient also understands the risk of infertility due to possible tubal damage or intrauterine scarring if the cavity if the endometrium is entered. We also discussed the remote risk of hysterectomy for life saving measure with life threatening bleeding or post operative pyometra. We reviewed future consultation with her OB or MFM provider for current recommendations and chances or uterine rupture. We discussed expectations for menstrual patterns post operatively. Per ACOG "Of those women who had a single leiomyoma, 27% had recurrent tumors and 11% required hysterectomy. Of those women who had multiple leiomyomas, 59% experienced recurrent tumors. Of the women in the multiple leiomyoma group, 26% required repeat myomectomy, hysterectomy, or both procedures. We discussed the remote risk of encountering a uterine sarcoma and current FDA numbers and the risk of upstaging that can occur by performing the surgery in a minimally invasive fashion. The patient understands that patient may need future surgery and/or radiation due to this. We also discussed the poor prognosis and 5 year survival if this were to occur. Also reviewed chance of future parasitic myoma. We discussed contained and uncontained morcellation are dependent on specimen size and reviewed contained tissue extraction with scalpel morcellation. Reviewed power morcellation and pertinent FDA information. "The FDA currently estimates that a hidden uterine sarcoma may be present in approximately 1 in 225 to 1 in 580 women undergoing surgery for uterine fibroids based on recent publications. The FDA also estimates that a leiomyosarcoma (a specific type of uterine sarcoma) may be present in approximately 1 in 495 to 1 in 1100 women undergoing surgery for uterine fibroids based on recent studies." Patient consents specifically to contained morcellation. The patient was allowed to freely ask questions, expressed a good understanding of all of the above risks, understood and declined alternatives to surgical management and wishes to proceed with the procedure. AAGL surgical handout provided. We discussed the risks of surgery including, but not limited to: [x] Bleeding, infection, visceral or major vascular injury, transfusion, additional surgery related to the complication [x] Serious injury necessitating ostomy creation creation for bowel or urinary tract [x] Possibility of delayed surgical injury (such as in cases of bowel or bladder), prolonged catheterization [x] Anesthetic complication, cardiovascular risks including VTE, neurologic compromise/neuropathy [x] Unexpected findings which may require different or additional procedures [x] Failure of the procedure to achieve the desired result [x] For endoscopic procedures, the possibility of conversion to open surgery, need for re-operation or rehospitalization [x] The remote possibility of [x] Pain control and risks of narcotic medications [x] Recovery period and post-op expectations All questions asked and answered. Patient is able to correctly repeat the pertinent facts and indicates understanding of these issues and agrees with the plan. Plan: Hysteroscopic myomectomy, possible laparoscopic myomectomy [facility] 09-10-2023 Miscellaneous Notes Associated Problem(s): Fibroids -We reviewed multiple scenarios that we may encounter during surgery. Discussed would approach hysteroscopic myomectomy first. If I do believe the main type III fibroid would be mostly amendable to hysteroscopic resection and more like a type II fibroid at the time of surgery would proceed with hysteroscopic resection only, follow-up SIS in 2 weeks and potentially could need staged procedure or laparoscopic intervention if it had not resolved or if cavity was not normalized. Discussed alternatively if we perform hysteroscopy at the time of surgery and fibroid is mostly within the muscle, would perform laparoscopic myomectomy at this point in time. My concern is that this may be difficult to find is only approximately 2 cm. And we did review this together. Also reviewed that if we perform hysteroscopy during surgery and cavity is normal, would not proceed with myomectomy via either route We discussed the r/b/a of major surgery via laparoscopic myomectomy and reviewed the steps of the procedure in depth. Patient also understands the risk of infertility due to possible tubal damage or intrauterine scarring if the cavity if the endometrium is entered. We also discussed the remote risk of hysterectomy for life saving measure with life threatening bleeding or post operative pyometra. We reviewed future consultation with her OB or MFM provider for current recommendations and chances or uterine rupture. We discussed expectations for menstrual patterns post operatively. Per ACOG "Of those women who had a single leiomyoma, 27% had recurrent tumors and 11% required hysterectomy. Of those women who had multiple leiomyomas, 59% experienced recurrent tumors. Of the women in the multiple leiomyoma group, 26% required repeat myomectomy, hysterectomy, or both procedures. We discussed the remote risk of encountering a uterine sarcoma and current FDA numbers and the risk of upstaging that can occur by performing the surgery in a minimally invasive fashion. The patient understands that patient may need future surgery and/or radiation due to this. We also discussed the poor prognosis and 5 year survival if this were to occur. Also reviewed chance of future parasitic myoma. We discussed contained and uncontained morcellation are dependent on specimen size and reviewed contained tissue extraction with scalpel morcellation. Reviewed power morcellation and pertinent FDA information. "The FDA currently estimates that a hidden uterine sarcoma may be present in approximately 1 in 225 to 1 in 580 women undergoing surgery for uterine fibroids based on recent publications. The FDA also estimates that a leiomyosarcoma (a specific type of uterine sarcoma) may be present in approximately 1 in 495 to 1 in 1100 women undergoing surgery for uterine fibroids based on recent studies." Patient consents specifically to contained morcellation. The patient was allowed to freely ask questions, expressed a good understanding of all of the above risks, understood and declined alternatives to surgical management and wishes to proceed with the procedure. AAGL surgical handout provided. We discussed the risks of surgery including, but not limited to: [x] Bleeding, infection, visceral or major vascular injury, transfusion, additional surgery related to the complication [x] Serious injury necessitating ostomy creation creation for bowel or urinary tract [x] Possibility of delayed surgical injury (such as in cases of bowel or bladder), prolonged catheterization [x] Anesthetic complication, cardiovascular risks including VTE, neurologic compromise/neuropathy [x] Unexpected findings which may require different or additional procedures [x] Failure of the procedure to achieve the desired result [x] For endoscopic procedures, the possibility of conversion to open surgery, need for re-operation or rehospitalization [x] The remote possibility of [x] Pain control and risks of narcotic medications [x] Recovery period and post-op expectations All questions asked and answered. Patient is able to correctly repeat the pertinent facts and indicates understanding of these issues and agrees with the plan. Plan: Hysteroscopic myomectomy, possible laparoscopic myomectomy documented in this encounter [facility] 09-10-2023 History of Present illness Narrative Images from the original note were not included. Coni Quintero 09/10/2023 37 y.o. Chief Complaint Patient presents with New Patient Patient's last menstrual period was 08/20/2023. HPI: Coni Quintero is a 37 y.o. female presents for evaluation of fibroids as referral from Dr. Chisholm. She reports she has some pelvic pain and dyspareunia. Does have very cramping and painful periods. She has changed her diet significantly in the last year and this really helps. She has three small fibroids. One type 3 fibroid that would likely need laparoscopic resection, although small. OB History Para Term AB Living 0 0 0 0 0 0 SAB IAB Ectopic Multiple Live Births 0 0 0 0 0 History reviewed. No pertinent past medical history. History reviewed. No pertinent surgical history. Family History Problem Relation Name Age of Onset Heart defect Paternal Grandfather Heart defect Paternal Grandmother Breast cancer Maternal Grandmother Colon cancer Maternal Grandfather MEDICATIONS: No current outpatient medications on file. No current facility-administered medications for this visit. ALLERGIES: Allergies as of 09/10/2023 (No Known Allergies) Review of Systems: Review of Systems Genitourinary: Positive for menstrual problem and pelvic pain. Physical Exam: BP 120/74 (BP Location: Left arm, Patient Position: Sitting, BP Cuff Size: Adult) Pulse 89 Wt 74.4 kg (164 lb) LMP 08/20/2023 Physical Exam Constitutional: Appearance: Normal appearance. HENT: Head: Normocephalic and atraumatic. Genitourinary: General: Normal vulva. Comments: Normal-appearing cervix on speculum exam on bimanual exam normal posterior cul-de-sac no uterosacral ligament nodularity uterus is smooth small anteverted and mobile nontender. No adnexal masses Neurological: Mental Status: She is alert and oriented to person, place, and time. Psychiatric: Behavior: Behavior normal. ASSESSMENT& PLAN: Fibroids -We reviewed multiple scenarios that we may encounter during surgery. Discussed would approach hysteroscopic myomectomy first. If I do believe the main type III fibroid would be mostly amendable to hysteroscopic resection and more like a type II fibroid at the time of surgery would proceed with hysteroscopic resection only, follow-up SIS in 2 weeks and potentially could need staged procedure or laparoscopic intervention if it had not resolved or if cavity was not normalized. Discussed alternatively if we perform hysteroscopy at the time of surgery and fibroid is mostly within the muscle, would perform laparoscopic myomectomy at this point in time. My concern is that this may be difficult to find is only approximately 2 cm. And we did review this together. Also reviewed that if we perform hysteroscopy during surgery and cavity is normal, would not proceed with myomectomy via either route We discussed the r/b/a of major surgery via laparoscopic myomectomy and reviewed the steps of the procedure in depth. Patient also understands the risk of infertility due to possible tubal damage or intrauterine scarring if the cavity if the endometrium is entered. We also discussed the remote risk of hysterectomy for life saving measure with life threatening bleeding or post operative pyometra. We reviewed future consultation with her OB or MFM provider for current recommendations and chances or uterine rupture. We discussed expectations for menstrual patterns post operatively. Per ACOG "Of those women who had a single leiomyoma, 27% had recurrent tumors and 11% required hysterectomy. Of those women who had multiple leiomyomas, 59% experienced recurrent tumors. Of the women in the multiple leiomyoma group, 26% required repeat myomectomy, hysterectomy, or both procedures. We discussed the remote risk of encountering a uterine sarcoma and current FDA numbers and the risk of upstaging that can occur by performing the surgery in a minimally invasive fashion. The patient understands that patient may need future surgery and/or radiation due to this. We also discussed the poor prognosis and 5 year survival if this were to occur. Also reviewed chance of future parasitic myoma. We discussed contained and uncontained morcellation are dependent on specimen size and reviewed contained tissue extraction with scalpel morcellation. Reviewed power morcellation and pertinent FDA information. "The FDA currently estimates that a hidden uterine sarcoma may be present in approximately 1 in 225 to 1 in 580 women undergoing surgery for uterine fibroids based on recent publications. The FDA also estimates that a leiomyosarcoma (a specific type of uterine sarcoma) may be present in approximately 1 in 495 to 1 in 1100 women undergoing surgery for uterine fibroids based on recent studies." Patient consents specifically to contained morcellation. The patient was allowed to freely ask questions, expressed a good understanding of all of the above risks, understood and declined alternatives to surgical management and wishes to proceed with the procedure. AAGL surgical handout provided. We discussed the risks of surgery including, but not limited to: [x] Bleeding, infection, visceral or major vascular injury, transfusion, additional surgery related to the complication [x] Serious injury necessitating ostomy creation creation for bowel or urinary tract [x] Possibility of delayed surgical injury (such as in cases of bowel or bladder), prolonged catheterization [x] Anesthetic complication, cardiovascular risks including VTE, neurologic compromise/neuropathy [x] Unexpected findings which may require different or additional procedures [x] Failure of the procedure to achieve the desired result [x] For endoscopic procedures, the possibility of conversion to open surgery, need for re-operation or rehospitalization [x] The remote possibility of [x] Pain control and risks of narcotic medications [x] Recovery period and post-op expectations All questions asked and answered. Patient is able to correctly repeat the pertinent facts and indicates understanding of these issues and agrees with the plan. Plan: Hysteroscopic myomectomy, possible laparoscopic myomectomy Sania Vila MD Visit: New patient. I spent total time today of 30 minutes counseling, coordinating care and provided discussion regarding multiple complex diagnosis, treatment plan and follow up. documented in this encounter [facility] 08-06-2023 Procedure note [facility] 08-06-2023 Procedure note [facility] 08-06-2023 Procedure note [facility] 08-06-2023 Procedure note [facility] 06-12-2023 Note [facility] Pap Smear Specimen Adequacy June 12, 2023 3:21pm Comment . Satisfactory for evaluation. Endocervical and/or squamous metaplasticcells (endocervical component) are present. Comment on above: Satisfactory for ashok luation. Endocervical and/or squamous metaplasticcells (endocervical component) are present. 06-12-2023 Note [facility] Pap Smear Specimen Adequacy June 12, 2023 2:21pm Comment . Satisfactory for evaluation. Endocervical and/or squamous metaplasticcells (endocervical component) are present. Comment on above: Satisfactory for ashok luation. Endocervical and/or squamous metaplasticcells (endocervical component) are present. 06-12-2023 Note [facility] Pap Smear Specimen Adequacy June 12, 2023 2:21pm Comment . Satisfactory for evaluation. Endocervical and/or squamous metaplasticcells (endocervical component) are present. Comment on above: Satisfactory for ashok luation. Endocervical and/or squamous metaplasticcells (endocervical component) are present. Evaluation + Plan note No data available for this section [facility] Evaluation note No assessment information availa [facility] Work Phone: Evaluation note Diagnosis Onset Date Lumbar spondylolysis acute Spondylolisthesis at L4-L5 level acute Blood in stool acute Infertility acute Routine gynecological examination noneactive Blood in stool [facility] Work Phone: Evaluation note* Diagnosis Onset Date Resolution Status Lumbar spondylolysis acute Spondylolisthesis at L4-L5 level acute Blood in stool acute Infertility acute Routine gynecological examination noneactive Blood in stool acute Spondylolisthesis at L4-L5 level [facility] Work Phone: Evaluation note* Diagnosis Onset Date Resolution Status Lumbar spondylolysis acute Spondylolisthesis at L4-L5 level acute Blood in stool acute Infertility acute Routine gynecological examination noneactive Blood in stool acute Spondylolisthesis at L4-L5 level acute Spondylolisthesis at L4-L5 level [facility] Work Phone: Evaluation note* Diagnosis Fibroids- Primary Leiomyoma of uterus, unspecified [facility] Acute postoperative pain- Primary Other acute postoperative pain Benign neoplasm of connective and other soft tissue, unspecified [facility] Post-operative state- Primary Other postprocedural status Fibroids Leiomyoma of uterus, unspecified Endometriosis Endometriosis, site unspecified [facility] Rios Jimenez [facility] August 06, 2023 6:57am Note Date/Time August 06, 2023 6:57am [facility] Medical Records Department [address] [place] [address] History & Physical Exam 08/06/23 0657 MR#: [id number] Acct: [id number] Name: CONI QUINTERO Rep #:[id number] : 1985 37 From: Rios reed MD PCP: Dr. 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: No Is patient in pain?: No Allergies No Known Allergies Allergy (Verified 06/19/23 13:48) Medications NK 05/01/23 [History Confirmed 06/19/23] Is last menstrual period known: No Post menopausal: No Patient : No PFSH Medical History (Updated 06/19/23 @ 13:48 by Anum Gaitan) Anxiety Hemorrhoids Surgical History (Updated 06/19/23 @ 13:48 by Anum Gaitan) Hx of LASIK Family History (Updated 06/19/23 @ 13:50 by Anum Gaitan) Grandmother Breast cancer Great grandmother Grandmother Breast cancerGrandfather Colon cancerMother HypertensionFather CVA (cerebral vascular accident) Social History (Updated 06/12/23 @ 10:19 by Yara Quintero) household members: spouse number of children: 0 current occupational status: unemployed Smoking Status: Never smoker alcohol intake: current alcohol intake frequency: holidays/special occasions only substance use type: does not use what type of physical activity do you participate in: walking and other details: pilates and crossfit seatbelt use: always do you feel safe at home: Yes additional 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 She reports that it is dark. She has been having this going on for few months. She also reportsthat the blood used to be bright but now it is dark. She has never had a scope in the past. She has no family history of colon cancer. ROS General General: Yes weight change and fatigue; No appetite, colon cancer, breast cancer or weakness HEENT HEENT: Yes eye surgery; No difficulty swallowing, eye injury, swollen glands or hoarseness Endo Endocrine: No thyroid disease, diabetes mellitus, thyroid cancer, Hair loss, heat intolerance or cold intolerance Breast Breast: No left breast lump, right breast lump, nipple discharge, breast pain, abnormal mammogram, abnormal US or breast enlargement Musc Musculoskeletal: Yes back problems; No arthritis, rheumatoid arthritis, gout or joint pain Cardio Cardiovascular: No murmur, pacemaker, heart disease, atrial fibrillation, high blood pressure, heart attack, heart stent, palpitations, shortness of breat withexertion or chest pain Psych Psychiatric: Yes anxiety; No depression or hearing voices Resp Respiratory: No shortness of breath, No sleep apnea, No cough, No COPD, No asthma, No emphysema and No wheezing Gastro Gastrointestinal: No abdominal pain, No nausea or vomiting, No diarrhea, No constipation, Yes blood in stool, No acid reflux, Yes hemorrhoids, No ulcers, Nogallbladder problem and No black,tarry stools Antoni Hematologic: No blood thinners, No blood disorders, No bleeding, No anemia and No blood clots Neuro Neurologic: No weakness Exam Const General: cooperative Orientation: alert and oriented x3 HENMT Head: normal to inspection Neck Neck: normal visual inspection and full ROM Chest Chest palpation & inspection: normal inspection of the chest Resp Effort & Inspection: normal respiratory effort Auscultation: clear to auscultation bilaterally Cardio Rate: regular rate Rhythm: regular rhythm GI Inspection: non-distended Palpation: soft and nontender Skin General: no rashes or lesions noted Neuro General: patient alert and patient oriented x3 Extrem General: full ROM Psych Appearance: grossly normal Mental Status: mental status grossly normal Assessment and Plan Assessment and Plan (1) Blood in stool: Status: Acute Plan: Patient has been seeing blood in her stool. She reports that it is when she wipes and is in the bowl. She is concerned because it is becoming darker. I would like to perform an EGD and colonoscopy to evaluate her bleeding. I explained endoscopy in detail to the patient. I explained the risks includingbut not limited to stroke or heart attack with anesthesia, perforation of the GItract, bleeding, infection. I explained that any of these could necessitate further emergency surgery. The patient understands and all questions were answered sufficiently. The patient wishes to proceed with procedure. Rios Jimenez MD Pager: [facility] [address] [place] [address], [address] [place] [address] Office: I have examined the patient and the H&P has been reviewed. There are no clinicalchanges since date of exam. 08/06/23 0657 <Electronically signed by Rios Jimenez MD> Cosigner Signature (if applicable): CC: Dr. Rios Jimenez MD; Dr. Kellee Kinney MD~ Signed [facility] Work Phone: Hospital Discharge instructions No data available for this section [facility] Progress note No data available for this section [facility] Summary Purpose Family History No Family History Records Found Relationship Condition Age at Onset Recorded Date/T janine grandmother Malignant neoplasm of breast Unknown grandfather Malignant neoplasm of colon Unknown mother Hypertension Unknown father Cerebrovascular accident (CVA) Unknown Advance Directives No Advanced Directives Records Found Advance Directive Response Recorded Date/ Time Living Will No July 17 023 10:29am Power of Repeat Chief No July 17, 2023 10:29am Advance Directive Response Recorded Date/ Time Living Will No August 02 9:04am Power of Repeat Chief No August 02, 2023 9:04am Latest Code Status on File Code Status Date Activated Date Inactivated Comments Full Code 10/23/2023 11:21 AM 10/23/2023 7:42 PM Latest Code Status on File Code Status Date Activated Date Inactivated Comments Full Code 10/23/2023 11:21 AM 10/23/2023 7:42 PM Chief Complaint and Reason for Visit Chief Complaint XRAY Chief Complaint XRAY LUMBER SPINE RM 6 New Annual LUMBAR SPONDYLOSIS RX HERE PAP BLOOD IN STOOL/FAMILY HX OF COLON CANCER SCREENING Reason for Visit Lumbar spondylolysis Spondylolisthesis at L4-L5 level Blood in stool Infertility Routine gynecological examination Blood in stool Chief Complaint XRAY LUMBER SPINE RM 6 New Annual LUMBAR SPONDYLOSIS RX HERE PAP BLOOD IN STOOL/FAMILY HX OF COLON CANCER SCREENING LUMBAR SPINE GI BLEEDING Spondylolisthesis, lumbar region Reason for Visit Lumbar spondylolysis Spondylolisthesis at L4-L5 level Blood in stool Infertility Routine gynecological examination Blood in stool Spondylolisthesis at L4-L5 level Chief Complaint XRAY LUMBER SPINE RM 6 New Annual LUMBAR SPONDYLOSIS RX HERE PAP BLOOD IN STOOL/FAMILY HX OF COLON CANCER SCREENING LUMBAR SPINE GI BLEEDING Spondylolisthesis, lumbar region LUMBAR SPINE Reason for Visit Lumbar spondylolysis Spondylolisthesis at L4-L5 level Blood in stool Infertility Routine gynecological examination Blood in stool Spondylolisthesis at L4-L5 level Spondylolisthesis at L4-L5 level Additional Source Comments INFORMATION SOURCE (unrecogn ized section and content) DATE CREATED AUTHOR 02/14/[address] 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 Silvestre Farfan MD Attending Provider Active Team Status: Inactive Member Role Status Dates Kellee Kinney MD Primary Care Provide r, Attending Provider, Referring Provider Active Goals (unrecognized section and content) Goals may be documented in a n alternate section Reason for Visit (unrecogniz ed section and content) Reason Comments New Patient Specialty Diagnoses / Procedures Referred By Contjeff t Referred To Contact Gynecology Diagnoses Intramural leiomyoma of uterus Procedures DE OFFICE/OUTPATIENT ESTABLISHED HIGH MDM 40-54 MIN Martha Chisholm R, DO [address] [facility] [address] [place] [address] Sania Vila MD [address] [facility] [address] [place] [address] Referral ID Status Reason Start Date Expiration Date Visits Re quested Visits Authorized [id number] Closed 08/02/2023 08/01/2024 1 1 Specialty Diagnoses / Procedures Referred By Javi riggins Referred To Contact Diagnoses Benign neoplasm of connective and other soft tissue, unspecified Benign neoplasm of connective and other soft tissue, unspecified [D21.9] Procedures DE HYSTEROSCOPY REMOVAL LEIOMYOMATA DE LAPS MYOMECTOMY EXC 1-4 MYOMAS 250 GM/< HYSTEROSCOPIC MYOMECTOMY, POSSIBLE LAPAROSCOPIC MYOMECTOMY LAPAROSCOPIC MYOMECTOMY Sania Vila MD [address] [place] [address] Referral ID Status Reason Start Date Expiration Date Visits Re quested Visits Authorized [id number] 09/11/2023 1 1 Reason Onset Date Comments Post op question 11/04/2023 Reason Comments Post-op Visit Reason Onset Date Comments Vaginal Bleeding 11/05/2023 Reason Onset Date Comments other 11/12/2023 Post-op Question Scheduled Active and Recently Administ ered Medications (unrecognized section and content) Medication Order 10/21/2023 10/22/2023 10/23/2023 acetaminophen (Tylenol) tablet 1,000 mg (COMPLETED) 1,000 mg, Oral, Once, On Sat10/23/23 at 1130, For 1 dose, Preprocedure, Maximum dose of acetaminophen is 4000 mg from all sources in 24 hours. Do not administer if patient has taken tylenol <4 hours earlier. Do not give if contraindicated ie. patient has active liver disease or cirrhosis. 1128 (Given - Provid er: Christine Waggoner RN) famotidine (Pepcid) tablet 20 mg (COMPLETED) 20 mg, Oral, Once, On Sat10/23/23 at 1130, For 1 dose, Preprocedure 1128 (Given - Provid er: Christine Waggoner RN) gabapentin (Neurontin) capsule 100 mg (COMPLETED) 100 mg, Oral, Once, On Sat10/23/23 at 1130, For 1 dose, Preprocedure, For Age >69 or Low GFR. 1128 (Given - Provid er: Christine Waggoner RN) sodium chloride 0.9% (NS) flush 10 mL 10 mL, IntraVENous, Every 12 hours scheduled (2 times per day), First dose on Sat10/23/23 at 2100, Recovery (only) sodium chloride 0.9% (NS) flush 5-40 mL 5-40 mL, IntraVENous, Every 12 hours, First dose on Sat10/23/23 at 1130, Preprocedure, For Line Patency: Peripheral IV = 5 mL; Midline or Central Line = 10 mL/lumen. If following IV push medication, administer flush at same rate as the IV push. Flush volume is determined by type of infusion therapy being given. For non-viscous solutions use: Peripheral IV = 5 mL Midline or Central Line = 10 mL/lumen For viscous solutions (i.e. blood components, parenteral nutrition, contrast media, or after obtaining blood sample) use: Peripheral IV = 10 mL Midline or Central Line = 20 mL/lumen 1130 (Canceled Entry - Provider: Automatic Discharge Provider - Comment: Automatically canceled at discontinue of medication order) Continuous Medication Order 10/21/2023 10/22/2023 10/23/2023 lactated Ringer's (LR) infusion 50 mL/hr, IntraVENous, Continuous, Starting on Sat10/23/23 at 1130, Preprocedure, Upon admission to sameday - please start iv if patient does not have iv access. Use 500ml NS for patients on dialysis. 1128 (New Bag - Prov ider: Christine Waggoner RN)1222 (Paused - Provider: FIOR Page CRNA - Comment: Switch to gravity)1223 (Restarted - Provider: FIOR Page CRNA)1234 (Continued by Anesthesia - Provider: FIOR Page CRNA)1406 (New Bag - Provider: FIOR Page CRNA)1449 (Anesthesia Volume Adjustment - Provider: FIOR Page CRNA) lactated ringers infusion 125 mL/hr, IntraVENous, Continuous, Starting on Sat10/23/23 at 1500, Recovery (only) 1500 (Canceled Entry - Provider: Automatic Discharge Provider - Comment: Automatically canceled at discontinue of medication order) PRN Medication Order 10/21/2023 10/22/2023 10/23/2023 ALPRAZolam (Xanax) disintegrating tablet 0.25 mg 0.25 mg, Oral, PRN, anxiety, Starting on Sat10/23/23 at 1120, For 1 dose, Preprocedure, Using dry hands, place tablet on top of tongue and allow to disintegrate. Administration with water is not necessary. diphenhydrAMINE (BENADryl) injection 12.5 mg 12.5 mg, IntraVENous, Once PRN, itching, Starting on Sat10/23/23 at 1455, For 1 dose, Recovery (only) fentaNYL (Sublimaze) injection 25 mcg 25 mcg, IntraVENous, Every 5 min PRN, moderate pain (4-6), Starting on Sat10/23/23 at 1455, For 3 doses, Recovery (only), Phase I and Phase II- Initial therapy for moderate pain (4-6). Restricted to a 90 minute time frame starting when the patient can verbally state their pain score. If after 2 doses the pain score does not decrease by more than one point, then call the provider. If oral meds are utilized, do not return to initial therapy medications. fentaNYL (Sublimaze) injection 50 mcg 50 mcg, IntraVENous, Every 5 min PRN, severe pain (7-10), Starting on Sat10/23/23 at 1455, For 3 doses, Recovery (only), Phase I and Phase II- Initial therapy for severe pain (7-10). Restricted to a 90 minute time frame starting when the patient can verbally state their pain score. If after 2 doses the pain score does not decrease by more than one point, then call the provider. If oral meds are utilized, do not return to initial therapy medications. 1531 (Given - Provid er: Steffany Katz RN) hydrALAZINE (Apresoline) injection 5 mg(Linked Group 1) 5 mg, IntraVENous, Every 15 min PRN, high blood pressure, for SBP greater than 160 mmHg for 2 consecutive measurements taken from different sites, Starting on Sat10/23/23 at 1455, For 2 doses, Recovery (only), PRN for SBP > 160 for 2 consecutive measurements, and if one of the following conditions is met: 1) If IV labetolol is ineffective. 2) If HR is under 60. 3) If patient has heart block, COPD or asthma. If both labetalol and hydralazine ineffective, notify anesthesia provider. labetalol (Normodyne,Trandate) injection 5 mg(Linked Group 1) 5 mg, IntraVENous, Every 10 min PRN, high blood pressure, for SBP greater than 160 mmHg for 2 consecutive measurements taken from different sites., Starting on Sat10/23/23 at 1455, For 2 doses, Recovery (only), PRN for SBP >160 for 2 consecutive measurements, if HR is 60 or greater. If beta meron is contraindicated (HR less than 60, heart block, COPD or asthma) use hydralazine IV order. ondansetron (Zofran) injection 4 mg (COMPLETED) 4 mg, IntraVENous, Once PRN, nausea, Starting on Sat10/23/23 at 1455, For 1 dose, Recovery (only), Initial antiemetic therapy. 1656 (Given - Provid er: Steffany Katz RN) oxidized regenerated cellulose 6x9 (SURGICEL NU-KNIT) (CANCELED) As needed, Starting on Sat10/23/23 at 1426, Intraprocedure 1426 (Given - Provid er: Sania Vila MD - Comment: UTERUS) oxyCODONE (Roxicodone) immediate release tablet 10 mg(Linked Group 2) 10 mg, Oral, PRN, severe pain (7-10), Starting on Sat10/23/23 at 1455, For 1 dose, Recovery (only), PHASE II oxyCODONE (Roxicodone) immediate release tablet 5 mg(Linked Group 2) 5 mg, Oral, PRN, moderate pain (4-6), Starting on Sat10/23/23 at 1455, For 1 dose, Recovery (only), PHASE II sodium chloride 0.9 % bolus 500 mL 500 mL, IntraVENous, at 1,000 mL/hr, Administer over 0.5 Hours, PRN, Anti-nausea, Starting on Sat10/23/23 at 1455, Recovery (only), Indications: Anti-nausea sodium chloride 0.9 % infusion 5-250 mL/hr, IntraVENous, PRN, if patient receiving piggyback infusions and maintenance fluids are not ordered OR KVO fluids to protect IV site / prevent frequent line interruptions / long duration, Starting on Sat10/23/23 at 1120, Preprocedure, For piggyback infusion, administer at same rate as piggyback for a total of 25 mL. Enter 25 mL into dose field and piggyback rate into rate field of order. If piggyback is infusing at a rate less than 100 mL/hr, enter 25 mL into dose field and 100 mL/hr into rate field of order. For KVO fluids, enter rate of 20 mL/hr or less into rate field of order. sodium chloride 0.9 % infusion 5-250 mL/hr, IntraVENous, PRN, if patient receiving piggyback infusions and maintenance fluids are not ordered OR KVO fluids to protect IV site / prevent frequent line interruptions/ long duration, Starting on Sat10/23/23 at 1455, Recovery (only), For piggyback infusion, administer at same rate as piggyback for a total of 25 mL. Enter 25 mL into dose field and piggyback rate into rate field of order. If piggyback is infusing at a rate less than 100 mL/hr, enter 25 mL into dose field and 100 mL/hr into rate field of order. For KVO fluids, enter rate of 20 mL/hr or less into rate field of order. sodium chloride 0.9 % irrigation solution (CANCELED) As needed, Starting on Sat10/23/23 at 1254, Intraprocedure 1254 (Given - Provid er: Sania Vila MD - Comment: FUID MANAGEMENT SYSTEM DEFICIT 200ML)1331 (Given - Provider: Sania Vila MD - Comment: SUCTION CERTIFIED SURGICAL TECHNOLOGIST) sodium chloride 0.9% (NS) flush 10 mL 10 mL, IntraVENous, PRN, line care, Starting on Sat10/23/23 at 1455, Recovery (only), After every IV line use sodium chloride 0.9% (NS) flush 5-40 mL 5-40 mL, IntraVENous, PRN, line care, After every IV line use, Starting on Sat10/23/23 at 1120, Preprocedure, For Line Patency: Peripheral IV = 5 mL; Midline or Central Line = 10 mL/lumen. If following IV push medication, administer flush at same rate as the IV push. Flush volume is determined by type of infusion therapy being given. For non-viscous solutions use: Peripheral IV = 5 mL Midline or Central Line = 10 mL/lumen For viscous solutions (i.e. blood components, parenteral nutrition, contrast media, or after obtaining blood sample) use: Peripheral IV = 10 mL Midline or Central Line = 20 mL/lumen sterile water irrigation solution (CANCELED) As needed, Starting on Sat10/23/23 at 1300, Intraprocedure 1300 (Given - Provid er: Sania Vila MD - Comment: BOTTOM TABLE SPECULUM)1319 (Given - Provider: Sania Vila MD - Comment: SCOPE WARMER) vasopressin (Vasostrict) 20 Units in sodium chloride 0.9 % 100 mL OR irrigation (CANCELED) As needed, Starting on Sat10/23/23 at 1301, Intraprocedure 1301 (Canceled Entry - Provider: Sania Vila MD)1330 (Given - Provider: Sania Vila MD) Linked Groups Order Group 1: labetalol (Normodyne,Trandate) injection 5 mgJump to med 5 mg, IntraVENous, Every 10 min PRN, high blood pressure, for SBP greater than 160 mmHg for 2 consecutive measurements taken from different sites., Starting on Sat10/23/23 at 1455, For 2 doses, Recovery (only), PRN for SBP >160 for 2 consecutive measurements, if HR is 60 or greater. If beta meron is contraindicated (HR less than 60, heart block, COPD or asthma) use hydralazine IV order. Or hydrALAZINE (Apresoline) injection 5 mgJump to med 5 mg, IntraVENous, Every 15 min PRN, high blood pressure, for SBP greater than 160 mmHg for 2 consecutive measurements taken from different sites, Starting on Sat10/23/23 at 1455, For 2 doses, Recovery (only), PRN for SBP > 160 for 2 consecutive measurements, and if one of the following conditions is met: 1) If IV labetolol is ineffective. 2) If HR is under 60. 3) If patient has heart block, COPD or asthma. If both labetalol and hydralazine ineffective, notify anesthesia provider. Group 2: oxyCODONE (Roxicodone) immediate release tablet 5 mgJump to med 5 mg, Oral, PRN, moderate pain (4-6), Starting on Sat10/23/23 at 1455, For 1 dose, Recovery (only), PHASE II Or oxyCODONE (Roxicodone) immediate release tablet 10 mgJump to med 10 mg, Oral, PRN, severe pain (7-10), Starting on Sat10/23/23 at 1455, For 1 dose, Recovery (only), PHASE II FOR RECORDS PERTAINING TO PATIENTS WHO ARE OR HAVE BEEN ENROLLED IN A CHEMICAL DEPENDENCY/SUBSTANCEABUSE PROGRAM, SOME INFORMATION MAY BE OMITTED. This clinical summary was aggregated from multiple sources. Caution should be exercised in using it in the provision of clinical care. This summary normalizes information from multiple sources, and as a consequence, information in this document may materially change the coding, format and clinical context of patient data. In addition, data may be omitted in some cases. CLINICAL DECISIONS SHOULD BE BASED ON THE PRIMARY CLINICAL RECORDS. [employer] [facility]. provides no warranty or guarantee of the accuracy or completeness of information in this document.
[2025-07-23 21:07] VITALS: BP 123/76; PULSE 82; RESP 16; TEMP 36.6; O2SAT 99
== END 2025-07-23 21:09 | disposition home or self-care (01) ==
PROVIDERS: Emergency Provider Emergency Medicine; PCP Family Medicine; Visit Provider Emergency Medicine
DX: T22.211A Burn of second degree of right forearm, initial encounter (principal); X12.XXXA Contact with other hot fluids, initial encounter; R03.0 Elevated blood-pressure reading, without diagnosis of hypertension
CPT/HCPCS: 99282